=== PATIENT | male | born 1975 | race African-American/Black ===

== ENCOUNTER 2022-03-17 08:47 | Inpatient (IN) ==
[2022-03-17] MEDS ORDERED: SODIUM CHLORIDE 0.9% 1000ML 1,000 ML IV ONE (09:04)
--- NOTE | 2022-03-17 09:11 | Emergency Department Note ---
History of Present Illness General Chief complaint: Altered Mental Status Stated complaint: altered Time Seen by Provider: 03/17/22 08:59 Source: EMS History of Present Illness Provider complaint: Altered mental status Onset (ago): unknown 46-year-old male presents emergency department via EMS for altered mental status. Per EMS, the patient is an alcoholic. EMS reports that the family called EMS after the patient was drinking alcohol last night and then was found down on the ground. Allergies Allergy/AdvReac Type Severity Reaction Status Date / Time Penicillins Allergy Mild Hives Verified 03/17/22 09:54 Past Med/Surg History Medical History Alcohol abuse Elevated liver enzymes Hypertension Surgical History (Updated 03/17/22 @ 09:54 by Kathy Figueroa) No pertinent past surgical history Social History (System 03/17/22 @ 09:54 by Kathy Figueroa) Smoking Status: Unknown if ever smoked Feels Safe at Home: Yes Review of Systems Unobtainable due to cognitive status Physical Exam Vital Signs Vital Signs - 24 hr 03/17/22 08:57 03/17/22 09:08 03/17/22 09:01 Temperature 37.1 C Temperature Source Oral Pulse Rate 123 H 120 H Pulse Rate [Apical] Pulse Rate from SpO2 Sensor 120 H Pulse Rhythm Regular Pulse Strength Normal Respiratory Rate 16 13 Respiratory Effort / Characteristics Non-Labored Respiratory Depth Normal Respiratory Pattern Regular Blood Pressure 140/81 140/81 Blood Pressure [Left Arm] Blood Pressure Mean 100 100 Blood Pressure Mean [Left Arm] Blood Pressure Position Lying Pulse Oximetry 98 98 98 Oxygen Delivery Method Room Air Room Air Room Air Sepsis Recent Fever Within 48 Hours No Sepsis New/Unexplained Change in Mental Status Yes Sepsis Action Taken by Nursing Physician Notified 03/17/22 09:10 03/17/22 09:20 03/17/22 09:30 Temperature Temperature Source Pulse Rate 114 H 121 H 113 H Pulse Rate [Apical] Pulse Rate from SpO2 Sensor Pulse Rhythm Pulse Strength Respiratory Rate 21 12 12 Respiratory Effort / Characteristics Respiratory Depth Respiratory Pattern Blood Pressure Blood Pressure [Left Arm] Blood Pressure Mean Blood Pressure Mean [Left Arm] Blood Pressure Position Pulse Oximetry 98 97 97 Oxygen Delivery Method Room Air Room Air Room Air Sepsis Recent Fever Within 48 Hours Sepsis New/Unexplained Change in Mental Status Sepsis Action Taken by Nursing 03/17/22 09:40 03/17/22 09:50 03/17/22 09:55 Temperature Temperature Source Pulse Rate 109 H 108 H 122 H Pulse Rate [Apical] Pulse Rate from SpO2 Sensor Pulse Rhythm Pulse Strength Respiratory Rate 12 12 18 Respiratory Effort / Characteristics Respiratory Depth Respiratory Pattern Blood Pressure 137/73 Blood Pressure [Left Arm] Blood Pressure Mean 94 Blood Pressure Mean [Left Arm] Blood Pressure Position Pulse Oximetry 97 98 98 Oxygen Delivery Method Room Air Room Air Room Air Sepsis Recent Fever Within 48 Hours Sepsis New/Unexplained Change in Mental Status Sepsis Action Taken by Nursing 03/17/22 10:00 03/17/22 10:22 03/17/22 10:30 Temperature Temperature Source Pulse Rate 115 H 120 H 120 H Pulse Rate [Apical] Pulse Rate from SpO2 Sensor 119 H 119 H Pulse Rhythm Pulse Strength Respiratory Rate 14 22 22 Respiratory Effort / Characteristics Respiratory Depth Respiratory Pattern Blood Pressure 145/77 H 149/86 H 160/87 H Blood Pressure [Left Arm] Blood Pressure Mean 99 107 111 Blood Pressure Mean [Left Arm] Blood Pressure Position Pulse Oximetry 98 100 100 Oxygen Delivery Method Room Air Room Air Room Air Sepsis Recent Fever Within 48 Hours Sepsis New/Unexplained Change in Mental Status Sepsis Action Taken by Nursing 03/17/22 11:00 03/17/22 12:14 03/17/22 11:30 Temperature Temperature Source Pulse Rate 112 H 114 H Pulse Rate [Apical] 108 H Pulse Rate from SpO2 Sensor 114 H Pulse Rhythm Pulse Strength Respiratory Rate 13 18 15 Respiratory Effort / Characteristics Respiratory Depth Respiratory Pattern Blood Pressure 120/97 168/87 H Blood Pressure [Left Arm] 160/108 H Blood Pressure Mean 104 114 Blood Pressure Mean [Left Arm] 125 Blood Pressure Position Pulse Oximetry 100 99 98 Oxygen Delivery Method Room Air Room Air Sepsis Recent Fever Within 48 Hours Sepsis New/Unexplained Change in Mental Status Sepsis Action Taken by Nursing 03/17/22 12:00 03/17/22 12:02 03/17/22 12:30 Temperature Temperature Source Pulse Rate 125 H 123 H 112 H Pulse Rate [Apical] Pulse Rate from SpO2 Sensor Pulse Rhythm Pulse Strength Respiratory Rate 14 15 13 Respiratory Effort / Characteristics Respiratory Depth Respiratory Pattern Blood Pressure 160/108 H 129/69 Blood Pressure [Left Arm] Blood Pressure Mean 125 89 Blood Pressure Mean [Left Arm] Blood Pressure Position Pulse Oximetry 98 98 98 Oxygen Delivery Method Room Air Room Air Room Air Sepsis Recent Fever Within 48 Hours Sepsis New/Unexplained Change in Mental Status Sepsis Action Taken by Nursing Physical Exam HENT: Exam performed. - Head: Normocephalic and atraumatic. - Right Ear: External ear normal. No mastoid tenderness. - Left Ear: External ear normal. No mastoid tenderness. EYES: scleral icterus.Pupils 2 mm and reactive. CV: Normal rate, regular rhythm, normal heart sounds and intact distal pulses. Palpable radial pulses bue. PULM/CHEST: Effort normal and breath sounds normal. No respiratory distress. No stridor. He has no wheezes. He has no rales. ABD: The abdomen is soft.No fluid wave. Ecchymosis over the anterior abdominal wall. MUSC/SKEL: Pelvis stable.2+ pitting edema of the bilateral lower extremities. NEURO: GCS eye subscore is 4. GCS verbal subscore is 3. GCS motor subscore is 4. Cerebellar tests wnl. SKIN: Jaundiced.Ecchymosis over the left flank. Course Course 08: The patient was evaluated in room B7. A complete history and physical exam was performed Administered Medications Discontinued Medications Sodium Chloride (Nss 1000ml) 1,000 mls @ 999 mls/hr IV .[id number] ONE Stop: 03/17/22 10:04 Last Infusion: 03/17/22 12:11 Dose: 0 mls/hr Documented By: Admin: 03/17/22 09:13 Dose: 999 mls/hr Documented By: ARELI Pantoprazole Sodium 80 mg/ (Dextrose) 120 mls @ 400 mls/hr IV NOW ONE Stop: 03/17/22 12:31 Last Admin: 03/17/22 12:52 Dose: 400 mls/hr Documented By: RICKY Critical Care Time Critical Care Time: Yes Total Critical Care Time: 54 Medical Decision Making Laboratory Data Result diagrams: 03/17/22 09:45 03/17/22 09:45 Lab Results 03/17/22 03/17/22 03/17/22 Range/Units 09:24 09:24 09:45 WBC 13.31 H (4.8-10.8) K/ul RBC 1.75 L (4.63-6.08) M/uL Hgb 6.5 L* (14.0-18.0) g/dl POC Hgb (14.0-18.0) g/dl Hct 17.7 L* (40.1-51.0) % POC Hct (42-52) % MCV 101.1 H (80.0-100.0) fL MCH 37.1 H (25.0-34.0) pg MCHC 36.7 H (32.0-36.0) g/dL RDW Std Deviation 80.1 H (36.4-46.3) fL RDW Coeff of Berny 22.5 H (11.5-14.5) % Plt Count 78 L (130-400) K/uL MPV 10.5 (9.4-12.4) fL Immature Gran % (Auto) 1.2 % Neut % (Auto) 76.9 % Lymph % (Auto) 14.6 % Hendry % (Auto) 6.3 % Eos % (Auto) 0.4 % Baso % (Auto) 0.6 % Neut # (Auto) 10.24 H (1.4-6.5) K/uL Lymph # (Auto) 1.94 (1.2-3.4) K/uL [place] # (Auto) 0.84 H (0.24-0.82) K/uL Eos # (Auto) 0.05 (0-0.50) K/uL Baso # (Auto) 0.08 (0-0.2) K/uL Immature Gran # (Auto) 0.16 H (0.00-0.02) K/uL Absolute Nucleated RBC 0.03 H (0-0) K/uL Nucleated RBC % (auto) 0.2 % Pappenheimer Bodies Occasional Target Cells 2+ Jovel-Cramerton Bodies Occasional PT (9.0-12.0) Seconds INR (0.9-1.1) APTT (21.0-31.0) Seconds PTT Ratio VBG pH (7.36-7.41) VBG pCO2 (38-50) mmHg VBG pO2 mmHg VBG HCO3 mmol/L VBG O2 Saturation % VBG Base Excess mEq/L POC Sodium (135-144) mmol/L Sodium (136-145) mmol/L POC Potassium (3.3-5.0) mmol/L Potassium (3.5-5.1) mmol/L POC Chloride (101-112) mmol/L Chloride (98-107) mmol/L Carbon Dioxide (21-32) mmol/L POC Total CO2 (24-31) mmol/L Anion Gap (3-11) POC Anion Gap (16-25) mmol/L POC BUN (7-18) mg/dl BUN (6-23) mg/dl Creatinine (0.6-1.4) mg/dl POC Creatinine (0.6-1.3) mg/dl Est Cr Clr Drug Dosing ml/min Est GFR ( Amer) ml/min Est GFR (Non-Af Amer) ml/min BUN/Creatinine Ratio (10-20) Glucose (70-99(Fasting)) mg/dl POC Glucose (other) (70-99) mg/dl Calcium (8.5-10.1) mg/dl POC Ioniz Calcium Jad (1.12-1.32) mmol/l Magnesium (1.7-2.4) mg/dl Total Bilirubin (0.2-1.0) mg/dl Direct Bilirubin (0-0.2) mg/dl AST (13-39) U/L ALT (7-52) U/L Alkaline Phosphatase (34-104) U/L Ammonia (18-72) umol/L Total Creatine Kinase (30-223) U/L Troponin I High Sens (0-20) pg/ml Total Protein (6.0-8.3) gm/dl Albumin (3.4-5.0) gm/dl Lipase (11-82) U/L Urine Color [place] Urine Appearance Cloudy A (Clear) Urine pH 5.5 (4.5-7.5) Ur Specific [place] 1.020 (1.000-1.030) Urine Protein Negative (Negative) Urine Glucose (UA) Negative (Negative) Urine Ketones Trace H (Negative) Urine Blood Negative (Negative) Urine Nitrite Positive A (Negative) Urine Bilirubin 3+ H (Negative) Urine Urobilinogen Positive H (Negative) Ur Leukocyte Esterase Trace H (Negative) Urine WBC (Auto) 1-5 (0-5) /hpf Urine RBC (Auto) 0-4 (0-4) /hpf U Hyaline Cast (Auto) 5-10 H (0-5) /lpf U Epithel Cells (Auto) 10-20 H (0-5) /lpf Urine Bacteria (Auto) Negative (Negative) Urine Crystals Not Reportable Calcium Oxalate Crystal Present A (None Prsent) Granular Casts 1-5 H (0) /lpf Urine Mucus Present A (None Prsent) Urine Yeast Not Reportable Salicylates (3.0-30) mg/dl Urine Opiates Screen Neg (Neg) Ur Methadone, Qual Neg (Neg) Acetaminophen (10-30) ug/ml Urine Barbiturates Neg (Neg) Ur Phencyclidine (PCP) Neg (Neg) U Amphetamin/Meth Scrn Neg (Neg) MDMA (Ecstasy) Screen Neg (Neg) U Benzodiazepines Scrn Neg (Neg) Ur Cocaine Metabolite Neg (Neg) U Marijuana (THC) Screen Neg (Neg) Ethyl Alcohol mg/dL (<10.0) mg/dl SARS-CoV-2, RNA, NAAT (NEGATIVE) Blood Type Blood Type Recheck Antibody Screen Crossmatch 03/17/22 03/17/22 03/17/22 Range/Units 09:45 09:45 09:45 WBC (4.8-10.8) K/ul RBC (4.63-6.08) M/uL Hgb (14.0-18.0) g/dl POC Hgb (14.0-18.0) g/dl Hct (40.1-51.0) % POC Hct (42-52) % MCV (80.0-100.0) fL MCH (25.0-34.0) pg MCHC (32.0-36.0) g/dL RDW Std Deviation (36.4-46.3) fL RDW Coeff of Berny (11.5-14.5) % Plt Count (130-400) K/uL MPV (9.4-12.4) fL Immature Gran % (Auto) % Neut % (Auto) % Lymph % (Auto) % [place] % (Auto) % Eos % (Auto) % Baso % (Auto) % Neut # (Auto) (1.4-6.5) K/uL Lymph # (Auto) (1.2-3.4) K/uL [place] # (Auto) (0.24-0.82) K/uL Eos # (Auto) (0-0.50) K/uL Baso # (Auto) (0-0.2) K/uL Immature Gran # (Auto) (0.00-0.02) K/uL Absolute Nucleated RBC (0-0) K/uL Nucleated RBC % (auto) % Pappenheimer Bodies Target Cells Jovel-Cramerton Bodies PT 22.5 H (9.0-12.0) Seconds INR 2.2 H (0.9-1.1) APTT 50.1 H* (21.0-31.0) Seconds PTT Ratio 1.8 VBG pH (7.36-7.41) VBG pCO2 (38-50) mmHg VBG pO2 mmHg VBG HCO3 mmol/L VBG O2 Saturation % VBG Base Excess mEq/L POC Sodium (135-144) mmol/L Sodium 131 L (136-145) mmol/L POC Potassium (3.3-5.0) mmol/L Potassium 4.1 (3.5-5.1) mmol/L POC Chloride (101-112) mmol/L Chloride 97 L (98-107) mmol/L Carbon Dioxide 21 (21-32) mmol/L POC Total CO2 (24-31) mmol/L Anion Gap 13 H (3-11) POC Anion Gap (16-25) mmol/L POC BUN (7-18) mg/dl BUN 15 (6-23) mg/dl Creatinine 1.30 (0.6-1.4) mg/dl POC Creatinine (0.6-1.3) mg/dl Est Cr Clr Drug Dosing 104.6 ml/min Est GFR ( Amer) 76.4 ml/min Est GFR (Non-Af Amer) 65.9 ml/min BUN/Creatinine Ratio 11.5 (10-20) Glucose 96 (70-99(Fasting)) mg/dl POC Glucose (other) (70-99) mg/dl Calcium 7.7 L (8.5-10.1) mg/dl POC Ioniz Calcium Jad (1.12-1.32) mmol/l Magnesium (1.7-2.4) mg/dl Total Bilirubin 11.4 H (0.2-1.0) mg/dl Direct Bilirubin 5.9 H (0-0.2) mg/dl AST 309 H (13-39) U/L ALT 63 H (7-52) U/L Alkaline Phosphatase 141 H (34-104) U/L Ammonia 99.0 H (18-72) umol/L Total Creatine Kinase (30-223) U/L Troponin I High Sens (0-20) pg/ml Total Protein 8.9 H (6.0-8.3) gm/dl Albumin 2.0 L (3.4-5.0) gm/dl Lipase (11-82) U/L Urine Color Urine Appearance (Clear) Urine pH (4.5-7.5) Ur Specific [place] (1.000-1.030) Urine Protein (Negative) Urine Glucose (UA) (Negative) Urine Ketones (Negative) Urine Blood (Negative) Urine Nitrite (Negative) Urine Bilirubin (Negative) Urine Urobilinogen (Negative) Ur Leukocyte Esterase (Negative) Urine WBC (Auto) (0-5) /hpf Urine RBC (Auto) (0-4) /hpf U Hyaline Cast (Auto) (0-5) /lpf U Epithel Cells (Auto) (0-5) /lpf Urine Bacteria (Auto) (Negative) Urine Crystals Calcium Oxalate Crystal (None Prsent) Granular Casts (0) /lpf Urine Mucus (None Prsent) Urine Yeast Salicylates (3.0-30) mg/dl Urine Opiates Screen (Neg) Ur Methadone, Qual (Neg) Acetaminophen (10-30) ug/ml Urine Barbiturates (Neg) Ur Phencyclidine (PCP) (Neg) U Amphetamin/Meth Scrn (Neg) MDMA (Ecstasy) Screen (Neg) U Benzodiazepines Scrn (Neg) Ur Cocaine Metabolite (Neg) U Marijuana (THC) Screen (Neg) Ethyl Alcohol mg/dL (<10.0) mg/dl SARS-CoV-2, RNA, NAAT (NEGATIVE) Blood Type Blood Type Recheck Antibody Screen Crossmatch 03/17/22 03/17/22 03/17/22 Range/Units 09:45 09:45 09:45 WBC (4.8-10.8) K/ul RBC (4.63-6.08) M/uL Hgb (14.0-18.0) g/dl POC Hgb (14.0-18.0) g/dl Hct (40.1-51.0) % POC Hct (42-52) % MCV (80.0-100.0) fL MCH (25.0-34.0) pg MCHC (32.0-36.0) g/dL RDW Std Deviation (36.4-46.3) fL RDW Coeff of Berny (11.5-14.5) % Plt Count (130-400) K/uL MPV (9.4-12.4) fL Immature Gran % (Auto) % Neut % (Auto) % Lymph % (Auto) % [place] % (Auto) % Eos % (Auto) % Baso % (Auto) % Neut # (Auto) (1.4-6.5) K/uL Lymph # (Auto) (1.2-3.4) K/uL [place] # (Auto) (0.24-0.82) K/uL Eos # (Auto) (0-0.50) K/uL Baso # (Auto) (0-0.2) K/uL Immature Gran # (Auto) (0.00-0.02) K/uL Absolute Nucleated RBC (0-0) K/uL Nucleated RBC % (auto) % Pappenheimer Bodies Target Cells Jovel-Cramerton Bodies PT (9.0-12.0) Seconds INR (0.9-1.1) APTT (21.0-31.0) Seconds PTT Ratio VBG pH (7.36-7.41) VBG pCO2 (38-50) mmHg VBG pO2 mmHg VBG HCO3 mmol/L VBG O2 Saturation % VBG Base Excess mEq/L POC Sodium (135-144) mmol/L Sodium (136-145) mmol/L POC Potassium (3.3-5.0) mmol/L Potassium (3.5-5.1) mmol/L POC Chloride (101-112) mmol/L Chloride (98-107) mmol/L Carbon Dioxide (21-32) mmol/L POC Total CO2 (24-31) mmol/L Anion Gap (3-11) POC Anion Gap (16-25) mmol/L POC BUN (7-18) mg/dl BUN (6-23) mg/dl Creatinine (0.6-1.4) mg/dl POC Creatinine (0.6-1.3) mg/dl Est Cr Clr Drug Dosing ml/min Est GFR ( Amer) ml/min Est GFR (Non-Af Amer) ml/min BUN/Creatinine Ratio (10-20) Glucose (70-99(Fasting)) mg/dl POC Glucose (other) (70-99) mg/dl Calcium (8.5-10.1) mg/dl POC Ioniz Calcium Jad (1.12-1.32) mmol/l Magnesium 1.8 (1.7-2.4) mg/dl Total Bilirubin (0.2-1.0) mg/dl Direct Bilirubin (0-0.2) mg/dl AST (13-39) U/L ALT (7-52) U/L Alkaline Phosphatase (34-104) U/L Ammonia (18-72) umol/L Total Creatine Kinase 289 H (30-223) U/L Troponin I High Sens 29.8 H (0-20) pg/ml Total Protein (6.0-8.3) gm/dl Albumin (3.4-5.0) gm/dl Lipase 118 H (11-82) U/L Urine Color Urine Appearance (Clear) Urine pH (4.5-7.5) Ur Specific [place] (1.000-1.030) Urine Protein (Negative) Urine Glucose (UA) (Negative) Urine Ketones (Negative) Urine Blood (Negative) Urine Nitrite (Negative) Urine Bilirubin (Negative) Urine Urobilinogen (Negative) Ur Leukocyte Esterase (Negative) Urine WBC (Auto) (0-5) /hpf Urine RBC (Auto) (0-4) /hpf U Hyaline Cast (Auto) (0-5) /lpf U Epithel Cells (Auto) (0-5) /lpf Urine Bacteria (Auto) (Negative) Urine Crystals Calcium Oxalate Crystal (None Prsent) Granular Casts (0) /lpf Urine Mucus (None Prsent) Urine Yeast Salicylates < 3.0 L (3.0-30) mg/dl Urine Opiates Screen (Neg) Ur Methadone, Qual (Neg) Acetaminophen 11 (10-30) ug/ml Urine Barbiturates (Neg) Ur Phencyclidine (PCP) (Neg) U Amphetamin/Meth Scrn (Neg) MDMA (Ecstasy) Screen (Neg) U Benzodiazepines Scrn (Neg) Ur Cocaine Metabolite (Neg) U Marijuana (THC) Screen (Neg) Ethyl Alcohol mg/dL 190.9 H (<10.0) mg/dl SARS-CoV-2, RNA, NAAT (NEGATIVE) Blood Type Blood Type Recheck Antibody Screen Crossmatch 03/17/22 03/17/22 03/17/22 Range/Units 10:00 10:02 10:24 WBC (4.8-10.8) K/ul RBC (4.63-6.08) M/uL Hgb (14.0-18.0) g/dl POC Hgb 7.5 L (14.0-18.0) g/dl Hct (40.1-51.0) % POC Hct 22 L (42-52) % MCV (80.0-100.0) fL MCH (25.0-34.0) pg MCHC (32.0-36.0) g/dL RDW Std Deviation (36.4-46.3) fL RDW Coeff of Berny (11.5-14.5) % Plt Count (130-400) K/uL MPV (9.4-12.4) fL Immature Gran % (Auto) % Neut % (Auto) % Lymph % (Auto) % [place] % (Auto) % Eos % (Auto) % Baso % (Auto) % Neut # (Auto) (1.4-6.5) K/uL Lymph # (Auto) (1.2-3.4) K/uL [place] # (Auto) (0.24-0.82) K/uL Eos # (Auto) (0-0.50) K/uL Baso # (Auto) (0-0.2) K/uL Immature Gran # (Auto) (0.00-0.02) K/uL Absolute Nucleated RBC (0-0) K/uL Nucleated RBC % (auto) % Pappenheimer Bodies Target Cells Jovel-Cramerton Bodies PT (9.0-12.0) Seconds INR (0.9-1.1) APTT (21.0-31.0) Seconds PTT Ratio VBG pH 7.44 H (7.36-7.41) VBG pCO2 31 L (38-50) mmHg VBG pO2 58 mmHg VBG HCO3 21 mmol/L VBG O2 Saturation 91.3 % VBG Base Excess -2.1 mEq/L POC Sodium 136 (135-144) mmol/L Sodium (136-145) mmol/L POC Potassium 4.2 (3.3-5.0) mmol/L Potassium (3.5-5.1) mmol/L POC Chloride 98 L (101-112) mmol/L Chloride (98-107) mmol/L Carbon Dioxide (21-32) mmol/L POC Total CO2 22 L (24-31) mmol/L Anion Gap (3-11) POC Anion Gap 21.0 (16-25) mmol/L POC BUN 15 (7-18) mg/dl BUN (6-23) mg/dl Creatinine (0.6-1.4) mg/dl POC Creatinine 1.7 H (0.6-1.3) mg/dl Est Cr Clr Drug Dosing ml/min Est GFR ( Amer) ml/min Est GFR (Non-Af Amer) ml/min BUN/Creatinine Ratio (10-20) Glucose (70-99(Fasting)) mg/dl POC Glucose (other) 104 H (70-99) mg/dl Calcium (8.5-10.1) mg/dl POC Ioniz Calcium Jad 0.97 L (1.12-1.32) mmol/l Magnesium (1.7-2.4) mg/dl Total Bilirubin (0.2-1.0) mg/dl Direct Bilirubin (0-0.2) mg/dl AST (13-39) U/L ALT (7-52) U/L Alkaline Phosphatase (34-104) U/L Ammonia (18-72) umol/L Total Creatine Kinase (30-223) U/L Troponin I High Sens (0-20) pg/ml Total Protein (6.0-8.3) gm/dl Albumin (3.4-5.0) gm/dl Lipase (11-82) U/L Urine Color Urine Appearance (Clear) Urine pH (4.5-7.5) Ur Specific [place] (1.000-1.030) Urine Protein (Negative) Urine Glucose (UA) (Negative) Urine Ketones (Negative) Urine Blood (Negative) Urine Nitrite (Negative) Urine Bilirubin (Negative) Urine Urobilinogen (Negative) Ur Leukocyte Esterase (Negative) Urine WBC (Auto) (0-5) /hpf Urine RBC (Auto) (0-4) /hpf U Hyaline Cast (Auto) (0-5) /lpf U Epithel Cells (Auto) (0-5) /lpf Urine Bacteria (Auto) (Negative) Urine Crystals Calcium Oxalate Crystal (None Prsent) Granular Casts (0) /lpf Urine Mucus (None Prsent) Urine Yeast Salicylates (3.0-30) mg/dl Urine Opiates Screen (Neg) Ur Methadone, Qual (Neg) Acetaminophen (10-30) ug/ml Urine Barbiturates (Neg) Ur Phencyclidine (PCP) (Neg) U Amphetamin/Meth Scrn (Neg) MDMA (Ecstasy) Screen (Neg) U Benzodiazepines Scrn (Neg) Ur Cocaine Metabolite (Neg) U Marijuana (THC) Screen (Neg) Ethyl Alcohol mg/dL (<10.0) mg/dl SARS-CoV-2, RNA, NAAT (NEGATIVE) Blood Type B Positive Blood Type Recheck Antibody Screen NEGATIVE Crossmatch See Detail 03/17/22 03/17/22 Range/Units 11:57 11:58 WBC (4.8-10.8) K/ul RBC (4.63-6.08) M/uL Hgb (14.0-18.0) g/dl POC Hgb (14.0-18.0) g/dl Hct (40.1-51.0) % POC Hct (42-52) % MCV (80.0-100.0) fL MCH (25.0-34.0) pg MCHC (32.0-36.0) g/dL RDW Std Deviation (36.4-46.3) fL RDW Coeff of Berny (11.5-14.5) % Plt Count (130-400) K/uL MPV (9.4-12.4) fL Immature Gran % (Auto) % Neut % (Auto) % Lymph % (Auto) % [place] % (Auto) % Eos % (Auto) % Baso % (Auto) % Neut # (Auto) (1.4-6.5) K/uL Lymph # (Auto) (1.2-3.4) K/uL [place] # (Auto) (0.24-0.82) K/uL Eos # (Auto) (0-0.50) K/uL Baso # (Auto) (0-0.2) K/uL Immature Gran # (Auto) (0.00-0.02) K/uL Absolute Nucleated RBC (0-0) K/uL Nucleated RBC % (auto) % Pappenheimer Bodies Target Cells Jovel-Cramerton Bodies PT (9.0-12.0) Seconds INR (0.9-1.1) APTT (21.0-31.0) Seconds PTT Ratio VBG pH (7.36-7.41) VBG pCO2 (38-50) mmHg VBG pO2 mmHg VBG HCO3 mmol/L VBG O2 Saturation % VBG Base Excess mEq/L POC Sodium (135-144) mmol/L Sodium (136-145) mmol/L POC Potassium (3.3-5.0) mmol/L Potassium (3.5-5.1) mmol/L POC Chloride (101-112) mmol/L Chloride (98-107) mmol/L Carbon Dioxide (21-32) mmol/L POC Total CO2 (24-31) mmol/L Anion Gap (3-11) POC Anion Gap (16-25) mmol/L POC BUN (7-18) mg/dl BUN (6-23) mg/dl Creatinine (0.6-1.4) mg/dl POC Creatinine (0.6-1.3) mg/dl Est Cr Clr Drug Dosing ml/min Est GFR ( Amer) ml/min Est GFR (Non-Af Amer) ml/min BUN/Creatinine Ratio (10-20) Glucose (70-99(Fasting)) mg/dl POC Glucose (other) (70-99) mg/dl Calcium (8.5-10.1) mg/dl POC Ioniz Calcium Jad (1.12-1.32) mmol/l Magnesium (1.7-2.4) mg/dl Total Bilirubin (0.2-1.0) mg/dl Direct Bilirubin (0-0.2) mg/dl AST (13-39) U/L ALT (7-52) U/L Alkaline Phosphatase (34-104) U/L Ammonia (18-72) umol/L Total Creatine Kinase (30-223) U/L Troponin I High Sens (0-20) pg/ml Total Protein (6.0-8.3) gm/dl Albumin (3.4-5.0) gm/dl Lipase (11-82) U/L Urine Color Urine Appearance (Clear) Urine pH (4.5-7.5) Ur Specific [place] (1.000-1.030) Urine Protein (Negative) Urine Glucose (UA) (Negative) Urine Ketones (Negative) Urine Blood (Negative) Urine Nitrite (Negative) Urine Bilirubin (Negative) Urine Urobilinogen (Negative) Ur Leukocyte Esterase (Negative) Urine WBC (Auto) (0-5) /hpf Urine RBC (Auto) (0-4) /hpf U Hyaline Cast (Auto) (0-5) /lpf U Epithel Cells (Auto) (0-5) /lpf Urine Bacteria (Auto) (Negative) Urine Crystals Calcium Oxalate Crystal (None Prsent) Granular Casts (0) /lpf Urine Mucus (None Prsent) Urine Yeast Salicylates (3.0-30) mg/dl Urine Opiates Screen (Neg) Ur Methadone, Qual (Neg) Acetaminophen (10-30) ug/ml Urine Barbiturates (Neg) Ur Phencyclidine (PCP) (Neg) U Amphetamin/Meth Scrn (Neg) MDMA (Ecstasy) Screen (Neg) U Benzodiazepines Scrn (Neg) Ur Cocaine Metabolite (Neg) U Marijuana (THC) Screen (Neg) Ethyl Alcohol mg/dL (<10.0) mg/dl SARS-CoV-2, RNA, NAAT NEGATIVE (NEGATIVE) Blood Type Blood Type Recheck B Positive Antibody Screen Crossmatch Imaging Data Radiologist's Impression: Cervical Spine CT 03/17/22 09:06 CT cervical spine wo con CLINICAL HISTORY: found down bathroom alcoholic ams TECHNIQUE: Multidetector row helical CT of the cervical spine was performed without administration of intravenous contrast. Coronal and sagittal reformations were obtained. Automated dose lowering techniques and/or adjustment according to patient size were utilized for this exam. Comparison: None available at the time of this dictation. FINDINGS: No acute fractures or subluxations are identified. Degenerative changes are seen in the visualized spine. The alignment is normal. Soft tissues are unremarkable. IMPRESSION: Degenerative changes without evidence of acute bony injury. ACT 112: Negative or not required by law. Electronically signed by: Jacques Bailey M.D. 03/17/2022 10:[address] 03/17/22 09:06 CT head/brain wo con CLINICAL HISTORY: 46 years-old Male with found down bathroom alcoholic ams. Acute head injury TECHNIQUE: Multiple axial CT images of the head were obtained without contrast. A dose lowering technique was utilized adhering to the principles of ALARA. COMPARISON: CT cervical spine of same day FINDINGS: No acute intracranial hemorrhage, midline shift, intracranial mass, hydrocephalus, territorial ischemia or abnormal extra-axial collection. The calvarium is intact. Polypoid mucosal thickening of the left maxillary sinus. The mastoid air cells are clear. Small left parietal scalp contusion. IMPRESSION: 1. No acute intracranial abnormality or calvarial fracture. 2. Small left parietal scalp contusion. ACT 112: Negative or not required by law. The above report was generated using voice recognition software. It may contain grammatical, syntax or spelling errors. Electronically signed by: Surinder Escobar M.D. 03/17/2022 10:32 AM Abdomen/Pelvis CT 03/17/22 10:03 CT abd pelvis wo con CLINICAL HISTORY: found down alcoholic TECHNIQUE: Helical axial images of the abdomen and pelvis were obtained. Automa willie dose lowering techniques and/or adjustment according to patient size were utilized for this exam. This exam was performed without intravenous contrast. CT DOSE: 3202.34 mGy.cm COMPARISON: None available at the time of this dictation. FINDINGS: Lower chest: No acute abnormality Liver: Hepatic steatosis is noted. Gallbladder and biliary tree: Patient is status post cholecystectomy. No intra- or extrahepatic biliary ductal dilation. Pancreas: Pancreas is diminutive for age. No definite peripancreatic stranding is seen against a background of ascites. Spleen: Unremarkable. Adrenals: Unremarkable. Kidneys and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
[2022-03-17 09:39] LABS: Appearance Urine Cloudy (Clear); Bacteria Urine Automated Negative (Negative); Blood Urine Negative (Negative); Color Urine Orange; Glucose Urine UA Negative (Negative); Ketones Urine Trace (Negative); Leukocyte Esterase Urine Trace (Negative); Nitrite Urine Positive (Negative); Protein Urine Negative (Negative); Urobilinogen Urine Positive (Negative); pH Urine 5.5 (4.5-7.5)
[2022-03-17 09:49] LABS: Bilirubin Urine 3+ (Negative)
[2022-03-17 10:09] LABS: Amphetamines+Metham, Urine Neg (Neg); Barbiturates, Urine Neg (Neg); Benzodiazepine, Urine Neg (Neg); Cocaine, Urine Neg (Neg); MDMA (Ecstacy), Urine Neg (Neg); Methadone, Urine Neg (Neg); Opiate, Urine Neg (Neg); Phencyclidine, Urine Neg (Neg)
[2022-03-17 10:18] LABS: RBC Urine Automated 0-4 /hpf (0-4)
[2022-03-17 10:19] LABS: Calcium Oxalate Crystals Urine Present (None Prsent); Mucus Urine Present (None Prsent)
[2022-03-17 10:20] LABS: Hematocrit (blood only) 17.7 % (40.1-51.0); Hemoglobin 6.5 g/dl (14.0-18.0)
[2022-03-17 10:28] LABS: Base Excess VBG -2.1 mEq/L; HCO3 VBG 21 mmol/L; Oxygen Saturation VBG 91.3 %; PCO2 VBG 31 mmHg (38-50); PO2 VBG 58 mmHg; pH VBG 7.44 (7.36-7.41)
--- NOTE | 2022-03-17 10:29 | CT Scan Report ---
CT cervical spine wo con CLINICAL HISTORY: found down bathroom alcoholic ams TECHNIQUE: Multidetector row helical CT of the cervical spine was performed without administration of intravenous contrast. Coronal and sagittal reformations were obtained. Automated dose lowering techn iques and/or adjustment according to patient size were utilized for this exam. Comparison: None available at the time of this dictation. FINDINGS: No acute fractures or subluxations are identified. Degenerative changes are seen in the visualized sp ine. The alignment is normal. Soft tissues are unremarkable. IMPRESSION: Degenerative changes without evidence of acute bony injury. ACT 112: Negative or not required by law. Electronically signed by: Jacques Bailey M.D. 03/17/2022 10:27 AM
--- NOTE | 2022-03-17 10:34 | CT Scan Report ---
CT head/brain wo con CLINICAL HISTORY: 46 years-old Male with found down bathroom alcoholic ams. Acute head injury TECHNIQUE: Multiple axial CT images of the head were obtained without contrast. A dose lowering tech nique was utilized adhering to the principles of ALARA. COMPARISON: CT cervical spine of same day FINDINGS: No acute intracranial hemorrhage, midline shift, intracranial mass, hydrocephalus, territorial ischem ia or abnormal extra-axial collection. The calvarium is intact. Polypoid mucosal thickening of the left maxillary sinus. The mastoid air ce lls are clear. Small left parietal scalp contusion. IMPRESSION: 1. No acute intracranial abnormality or calvarial fracture. 2. Small left parietal scalp contusion. ACT 112: Negative or not required by law. The above report was generated using voice recognition software. It may contain grammatical, syntax o r spelling errors. Electronically signed by: Surinder Escobar M.D. 03/17/2022 10:32 AM
--- NOTE | 2022-03-17 10:35 | CT Scan Report ---
CT abd pelvis wo con CLINICAL HISTORY: found down alcoholic TECHNIQUE: Helical axial images of the abdomen and pelvis were obtained. Automated dose lowering tech niques and/or adjustment according to patient size were utilized for this exam. This exam was perfor med without intravenous contrast. CT DOSE: 3202.34 mGy.cm COMPARISON: None available at the time of this dictation. FINDINGS: Lower chest: No acute abnormality Liver: Hepatic steatosis is noted. Gallbladder and biliary tree: Patient is status post cholecystectomy. No intra- or extrahepatic bilia ry ductal dilation. Pancreas: Pancreas is diminutive for age. No definite peripancreatic stranding is seen against a back ground of ascites. Spleen: Unremarkable. Adrenals: Unremarkable. Kidneys and ureters: Unremarkable. Bladder: Limited evaluation due to underdistention. Reproductive organs: Unremarkable. Bowel: Prominent stool burden is noted in the rectum. The appendix is unremarkable. Postsurgical cooney ges of gastric bypass. Lymph nodes Retroperitoneal: Unremarkable. Pelvic: Unremarkable. Mesenteric: Unremarkable. Peritoneum: Mild ascites is seen. Vessels: Unremarkable. Abdominal wall: Mild body wall edema is seen. Bones: Degenerative changes in the visualized spine. IMPRESSION: Hepatic steatosis and possible steatohepatitis in this patient with history of alcoholism. There is m ild ascites. This is new from prior exam and may represent worsening liver disease. Additional findin gs as above. ACT 112: Negative or not required by law. Electronically signed by: Jacques Bailey M.D. 03/17/2022 10:33 AM
[2022-03-17 10:36] LABS: Basophils # (auto) 0.08 K/uL (0-0.2); Basophils % (auto) 0.6 %; Eosinophils # (auto) 0.05 K/uL (0-0.50); Eosinophils % (auto) 0.4 %; Howell-Jolly Bodies Occasional; Immature Granulocytes # (auto) 0.16 K/uL (0.00-0.02); Immature Granulocytes % (auto) 1.2 %; Lymphocytes # (auto) 1.94 K/uL (1.2-3.4); Lymphocytes % (auto) 14.6 %; Mean Corpuscular Hemoglobin 37.1 pg (25.0-34.0); Mean Corpuscular Hgb Conc 36.7 g/dL (32.0-36.0); Mean Corpuscular Volume 101.1 fL (80.0-100.0); Mean Platelet Volume 10.5 fL (9.4-12.4); Monocytes # (auto) 0.84 K/uL (0.24-0.82); Monocytes % (auto) 6.3 %; Neutrophils # (auto) 10.24 K/uL (1.4-6.5); Neutrophils % (auto) 76.9 %; Nucleated RBC # (auto) 0.03 K/uL (0-0); Nucleated RBC % (auto) 0.2 %; Pappenheimer Bodies Occasional; Platelet Count 78 K/uL (130-400); RDW Coefficient of Variation 22.5 % (11.5-14.5); RDW Standard Deviation 80.1 fL (36.4-46.3); Red Blood Count 1.75 M/uL (4.63-6.08); Target Cells 2+; Troponin I High Sensitivity 29.8 pg/ml (0-20); White Blood Count 13.31 K/ul (4.8-10.8)
[2022-03-17 10:50] LABS: iSTAT Creatinine 1.7 mg/dl (0.6-1.3); iSTAT Hemoglobin 7.5 g/dl (14.0-18.0); iSTAT Ionized Calcium 0.97 mmol/l (1.12-1.32); iSTAT Potassium 4.2 mmol/L (3.3-5.0)
[2022-03-17 10:50] LABS: Acetaminophen 11 ug/ml (10-30); Salicylate < 3.0 mg/dl (3.0-30)
[2022-03-17 10:52] LABS: BUN Creatinine Ratio 11.5 (10-20); Bilirubin Direct 5.9 mg/dl (0-0.2); Bilirubin,Total 11.4 mg/dl (0.2-1.0); Calcium 7.7 mg/dl (8.5-10.1); Creatinine Clr Calc Pharmacy 104.6 ml/min; Est GFR (African American) 76.4 ml/min; Est GFR (Non-African American) 65.9 ml/min; Potassium 4.1 mmol/L (3.5-5.1); Total Protein 8.9 gm/dl (6.0-8.3)
[2022-03-17 11:00] LABS: Magnesium 1.8 mg/dl (1.7-2.4)
[2022-03-17 11:18] LABS: INR 2.2 (0.9-1.1); Partial Thromboplastin Ratio 1.8; Prothrombin Time 22.5 Seconds (9.0-12.0)
[2022-03-17 11:24] LABS: Partial Thromboplastin Time 50.1 Seconds (21.0-31.0)
[2022-03-17] MEDS ORDERED: SODIUM CHLORIDE 0.9% 250 ML IV PRN ×3 (11:39→17:48)
[2022-03-17] MEDS ORDERED: PANTOPRAZOLE BOLUS/DRIP 1 EACH IV STA (12:14)
[2022-03-17] MEDS ORDERED: PANTOprazole 80 MG in DEXTROSE 5% 100 ML IV ONE (12:14)
[2022-03-17] MEDS ORDERED: PHYTONADIONE 5 MG in DEXTROSE 5% 50 ML IV ONE (12:19)
[2022-03-17] MEDS ORDERED: STAT IV STA ×2 (13:37→15:00)
[2022-03-17] MEDS ORDERED: OCTREOTIDE ACETATE 500 MCG in DEXTROSE 5% 100 ML IV SCH (13:45)
[2022-03-17] MEDS ORDERED: cefTRIAXone SODIUM 1,000 MG in DEXTROSE 5% 50 ML IV SCH (13:45)
[2022-03-17] MEDS ORDERED: LORazepam 2 MG/1 ML VIAL IV STA (13:59)
--- NOTE | 2022-03-17 14:08 | History & Physical Report ---
Date of Service March 17, 2022 Assessment & Plan (1) Acute liver failure: Plan: -Due to heavy and prolonged alcohol abuse, patient still currently drinking daily -MELD score currently 30, not a candidate for liver transplant as he is still drinking -GI consult placed, they will follow -Will start octreotide and Ceftriaxone as unsure if he has a history of esophageal varices -Will start 30 mg IV methylprednisolone daily for his severe status -Patient being admitted to ICU for closer monitoring with his multiple issues at this time (2) Alcoholic hepatitis: Plan: -See above (3) Acute blood loss anemia (ABLA): Plan: -Likely due to a multiple etiologies including acute liver failure and lack of coagulation factors, possible GI bleed, and large hematoma on the left abdomen and left flank -Currently hemodynamically stable but tachycardic -Hgb currently 6.7, last Hgb was 13 as og 02/02/22 -Blood consent and 1 unit PRBCs in the ED -Continue to monitor cbc q6h and transfuse as needed -Started on IV protonix in the ED, continue for now -GI consult placed -Keep NPO for now (4) GI bleed: Plan: -See above (5) Hepatic encephalopathy: Plan: -Ammonia currently at 99 -Patient is tremulous but alert -Will hold lactulose for now until he is seen by GI with his possible GI bleed (6) Alcoholic intoxication: Plan: -Ethanol level currently 190 -Patient appears to be starting to withdrawal -Started on alcohol withdrawal severity scale and give ativan as needed -Ordering banana bag now (7) TANVIR (acute kidney injury): Plan: -Cr currently 1.7, was .77 as og 02/02/22 -Likely multifactorial due to hepatorenal syndrome, alcohol use, and possible rhabdomyolysis for recent fall -Given 1L NSS in the ED, will hold additional IV fluids for now -Monitor AM renal function and CK and consult nephrology as needed (8) Hypocalcemia: Plan: -Ionized calcium at 0.97 -Will give 1g IV calcium gluconate now as he is NPO status -Monitor AM BMP (9) Hyponatremia: Plan: -Noted to be 131 in ED -Likely due to multiple factors including liver failure, alcohol abuse, and poor oral intake -Monitor am BMP for now (10) Supratherapeutic INR: Plan: -Likely due to his liver failure -Currently 2.2 -Given 5mg IV vitamin K in ED -Continue to monitor am PT/INR (11) Thrombocytopenia: Plan: -Monitor platelet and transfuse as need (12) Hypertension: Plan: -Hold [employer] antihypertensives as he is high risk for hypotension (13) Fall: Plan: -No acute musculoskeletal injuries noted on exam -If concern for continued bleeding at the hematoma site would recommend STAT CT with contrast History of Present Illness Chief Complaint: AMS and recent fall Primary Care Provider: Rigo OsborneDO Henderson is a 46 year old male with a PMH significant for current alcohol abuse, HTN, previous gastric bypass surgery in 2015, previous bowel resection in 2019 who presented to the ED with his fiance for a chief complaint of AMS and recent fall. The majority of the history was obtained from the patient's fiance at bedside. She states that the patient has been having progressive lower extremity swelling over the last month. The patient drinks approximately 1/2 handle of vodka daily. She has noticed that his eyes have been "yellow" for about the past month. His fiance states that the patient fell on 03/13/22 but is unsure how long he was down for. After, he developed a large left abdominal and left flank hematoma. The patient was last seen in the ED on 02/02/22 for pancreatitis, transaminitis, and alcohol withdrawal but he left AMA instead of staying for treatment. At the time of the exam the patient was resting comfortably in bed in no acute distress. He denies any complaints at the time of the exam. His fiance currently lives in [place] and the patient currently lives in [place] which makes an accurate history difficult to obtained. She states that the patient was complaining of abdominal pain but has not experienced hematemesis, bloody BMs, or melena. In the ED the patient was noted to be encephalopathic, anemic with a Hgb of 6.7, down from 13.5 as of 02/02/22. The patient was found to be thrombocytopenic (78 K), supratherapeutic INR at 2.2, Cr of 1.3, up from 0.77 as of 02/02/22, hypocalcemic with an Ionized calcium of 0.97. The patient's liver enzymes were all liver enzymes were elevated with an elevated ammonia of 99 and an alcohol level of 190. CT of the head and C-spine were negative for acute injuries and CT of the abdom/pelvis WO contrast revealed "Hepatic steatosis and possible steatohepatitis in this patient with history of alcoholism. There is mild ascites." In the ED he was given 1 unit PRBCs, IV protonix , 1L NSS bolus, and 5 mg IV vitamin K. The emergency department spoke with GI who recommended medicine admission and they will follow while admitted. A long discussion was had with the patient and his fiance. It was explained that the patient is in acute liver failure with a very poor prognosis over the next 3 months. It was explained that he is not a liver transplant candidate because of his current alcohol use. The patient's fiance expressed understanding. We explained that the goal for now is to stabilize him and see what GI says moving forward. Allergies Allergy/AdvReac Type Severity Reaction Status Date / Time Penicillins Allergy Mild Hives Verified 03/17/22 09:54 Home Medications Medication Instructions Recorded Confirmed Type amlodipine 5 mg tablet 5 mg PO DAILY 03/17/22 03/17/22 History cholecalciferol (vitamin D3) 50 0 mcg PO DAILY 03/17/22 03/17/22 History mcg (2,000 unit) capsule (Vitamin D3) cyanocobalamin (vitamin B-12) 0 mcg PO DAILY 03/17/22 03/17/22 History 1,000 mcg tablet (Vitamin B-12) hydrochlorothiazide 12.5 mg tablet 12.5 mg PO DAILY 03/17/22 03/17/22 History Past Med/Surg History Medical History (Updated 03/17/22 @ 16:40 by Yobani Mondragon MD) Alcohol abuse Elevated liver enzymes Hypertension No pertinent family history No pertinent past medical history Surgical History No pertinent past surgical history Social History Smoking Status: Unknown if ever smoked Feels Safe at Home: Yes Review of Systems Constitutional: + fatigue, + malaise, + weakness and + weight gain Eyes: no diplopia Positive for sclerual icterus Ear, Nose, Mouth, Throat: no ear pain, no tinnitus, no dizziness, no epistaxis and no dysphagia Respiratory: no cough, no chest congestion and no dyspnea Cardiovascular: no chest pain and no palpitations Gastrointestinal: no abdominal pain, no nausea, no vomiting, no coffee ground emesis, no hematemesis and no blood in stools Musculoskeletal: no back pain, no deformity and no limited range of motion Integumentary: no rash Positive for bruising of the left abdomen and flank Neurologic: + falls, + generalized weakness and + confusion Psychiatric: + irritability and + confusion Endocrine: + fatigue Hematologic / Lymphatic: + easy bruising Allergy / Immunological: no rash Physical Exam Constitutional: + ill appearing, + intoxicated appearing, + morbidly obese, cooperative, comfortable and + malnourished; + not well nourished, no acute distress and not in distress Eyes: PERRL; sclerae not anicteric ENMT: external ear and nose normal, oropharynx normal Neck: trachea midline, no thyromegaly Respiratory: normal respiratory effort, lungs clear to auscultation normal respiratory effort; no respiratory distress Cardiovascular: Tachycardic, regular rhythm, no murmurs noted Gastrointestinal (Abdomen): Inspection/Auscultation: + abdomen distended Percussion/Palpation: abdomen soft, + hepatosplenomegaly and + ascites Bruising noted on the left lower abdomen and left flank Musculoskeletal: no cyanosis or clubbing, extremities motor strength 5/5 Skin: Bruising of the left lower abdomen and flank Neurologic: CN's II-XI intact bilaterally and + confused Motor/Sensory: + tremor and + asterixis Psychiatric: Orientation: alert, oriented to person and oriented to time Results & Data Results & Data ([facility]) Vital Signs (Past 12 Hours) Vital Signs Temp Pulse Pulse Resp BP BP Pulse Ox 03/17/22 13:27 36.9 C 133 H 16 160/88 H 98 03/17/22 12:30 112 H 13 129/69 98 03/17/22 12:02 123 H 15 160/108 H 98 03/17/22 12:00 125 H 14 98 03/17/22 11:30 114 H 15 168/87 H 98 03/17/22 12:14 108 H 18 160/108 H 99 03/17/22 11:00 112 H 13 120/97 100 03/17/22 10:30 120 H 22 160/87 H 100 03/17/22 10:22 120 H 22 149/86 H 100 03/17/22 10:00 115 H 14 145/77 H 98 03/17/22 09:55 122 H 18 137/73 98 03/17/22 09:50 108 H 12 98 03/17/22 09:40 109 H 12 97 03/17/22 09:30 113 H 12 97 03/17/22 09:20 121 H 12 97 03/17/22 09:10 114 H 21 98 03/17/22 09:01 120 H 13 140/81 98 03/17/22 09:08 98 03/17/22 08:57 37.1 C 123 H 16 140/81 98 O2 Del Method 03/17/22 13:27 03/17/22 12:30 Room Air 03/17/22 12:02 Room Air 03/17/22 12:00 Room Air 03/17/22 11:30 Room Air 03/17/22 12:14 03/17/22 11:00 Room Air 03/17/22 10:30 Room Air 03/17/22 10:22 Room Air 03/17/22 10:00 Room Air 03/17/22 09:55 Room Air 03/17/22 09:50 Room Air 03/17/22 09:40 Room Air 03/17/22 09:30 Room Air 03/17/22 09:20 Room Air 03/17/22 09:10 Room Air 03/17/22 09:01 Room Air 03/17/22 09:08 Room Air 03/17/22 08:57 Room Air Abnormal lab results 03/17/22 03/17/22 03/17/22 Range/Units 09:24 09:45 09:45 WBC 13.31 H (4.8-10.8) K/ul RBC 1.75 L (4.63-6.08) M/uL Hgb 6.5 L* (14.0-18.0) g/dl POC Hgb (14.0-18.0) g/dl Hct 17.7 L* (40.1-51.0) % POC Hct (42-52) % MCV 101.1 H (80.0-100.0) fL MCH 37.1 H (25.0-34.0) pg MCHC 36.7 H (32.0-36.0) g/dL RDW Std Deviation 80.1 H (36.4-46.3) fL RDW Coeff of Berny 22.5 H (11.5-14.5) % Plt Count 78 L (130-400) K/uL Neut # (Auto) 10.24 H (1.4-6.5) K/uL Wilbarger # (Auto) 0.84 H (0.24-0.82) K/uL Immature Gran # (Auto) 0.16 H (0.00-0.02) K/uL Absolute Nucleated RBC 0.03 H (0-0) K/uL PT 22.5 H (9.0-12.0) Seconds INR 2.2 H (0.9-1.1) APTT 50.1 H* (21.0-31.0) Seconds VBG pH (7.36-7.41) VBG pCO2 (38-50) mmHg Sodium (136-145) mmol/L POC Chloride (101-112) mmol/L Chloride (98-107) mmol/L POC Total CO2 (24-31) mmol/L Anion Gap (3-11) POC Creatinine (0.6-1.3) mg/dl POC Glucose (other) (70-99) mg/dl Calcium (8.5-10.1) mg/dl POC Ioniz Calcium Jad (1.12-1.32) mmol/l Total Bilirubin (0.2-1.0) mg/dl Direct Bilirubin (0-0.2) mg/dl AST (13-39) U/L ALT (7-52) U/L Alkaline Phosphatase (34-104) U/L Ammonia (18-72) umol/L Total Creatine Kinase (30-223) U/L Troponin I High Sens (0-20) pg/ml Total Protein (6.0-8.3) gm/dl Albumin (3.4-5.0) gm/dl Lipase (11-82) U/L Urine Appearance Cloudy A (Clear) Urine Ketones Trace H (Negative) Urine Nitrite Positive A (Negative) Urine Bilirubin 3+ H (Negative) Urine Urobilinogen Positive H (Negative) Ur Leukocyte Esterase Trace H (Negative) U Hyaline Cast (Auto) 5-10 H (0-5) /lpf U Epithel Cells (Auto) 10-20 H (0-5) /lpf Calcium Oxalate Crystal Present A (None Prsent) Granular Casts 1-5 H (0) /lpf Urine Mucus Present A (None Prsent) Salicylates (3.0-30) mg/dl Ethyl Alcohol mg/dL (<10.0) mg/dl Crossmatch 03/17/22 03/17/22 03/17/22 Range/Units 09:45 09:45 09:45 WBC (4.8-10.8) K/ul RBC (4.63-6.08) M/uL Hgb (14.0-18.0) g/dl POC Hgb (14.0-18.0) g/dl Hct (40.1-51.0) % POC Hct (42-52) % MCV (80.0-100.0) fL MCH (25.0-34.0) pg MCHC (32.0-36.0) g/dL RDW Std Deviation (36.4-46.3) fL RDW Coeff of Berny (11.5-14.5) % Plt Count (130-400) K/uL Neut # (Auto) (1.4-6.5) K/uL Wilbarger # (Auto) (0.24-0.82) K/uL Immature Gran # (Auto) (0.00-0.02) K/uL Absolute Nucleated RBC (0-0) K/uL PT (9.0-12.0) Seconds INR (0.9-1.1) APTT (21.0-31.0) Seconds VBG pH (7.36-7.41) VBG pCO2 (38-50) mmHg Sodium 131 L (136-145) mmol/L POC Chloride (101-112) mmol/L Chloride 97 L (98-107) mmol/L POC Total CO2 (24-31) mmol/L Anion Gap 13 H (3-11) POC Creatinine (0.6-1.3) mg/dl POC Glucose (other) (70-99) mg/dl Calcium 7.7 L (8.5-10.1) mg/dl POC Ioniz Calcium Jad (1.12-1.32) mmol/l Total Bilirubin 11.4 H (0.2-1.0) mg/dl Direct Bilirubin 5.9 H (0-0.2) mg/dl AST 309 H (13-39) U/L ALT 63 H (7-52) U/L Alkaline Phosphatase 141 H (34-104) U/L Ammonia 99.0 H (18-72) umol/L Total Creatine Kinase (30-223) U/L Troponin I High Sens (0-20) pg/ml Total Protein 8.9 H (6.0-8.3) gm/dl Albumin 2.0 L (3.4-5.0) gm/dl Lipase (11-82) U/L Urine Appearance (Clear) Urine Ketones (Negative) Urine Nitrite (Negative) Urine Bilirubin (Negative) Urine Urobilinogen (Negative) Ur Leukocyte Esterase (Negative) U Hyaline Cast (Auto) (0-5) /lpf U Epithel Cells (Auto) (0-5) /lpf Calcium Oxalate Crystal (None Prsent) Granular Casts (0) /lpf Urine Mucus (None Prsent) Salicylates < 3.0 L (3.0-30) mg/dl Ethyl Alcohol mg/dL (<10.0) mg/dl Crossmatch 03/17/22 03/17/22 03/17/22 Range/Units 09:45 09:45 10:00 WBC (4.8-10.8) K/ul RBC (4.63-6.08) M/uL Hgb (14.0-18.0) g/dl POC Hgb 7.5 L (14.0-18.0) g/dl Hct (40.1-51.0) % POC Hct 22 L (42-52) % MCV (80.0-100.0) fL MCH (25.0-34.0) pg MCHC (32.0-36.0) g/dL RDW Std Deviation (36.4-46.3) fL RDW Coeff of Berny (11.5-14.5) % Plt Count (130-400) K/uL Neut # (Auto) (1.4-6.5) K/uL Wilbarger # (Auto) (0.24-0.82) K/uL Immature Gran # (Auto) (0.00-0.02) K/uL Absolute Nucleated RBC (0-0) K/uL PT (9.0-12.0) Seconds INR (0.9-1.1) APTT (21.0-31.0) Seconds VBG pH (7.36-7.41) VBG pCO2 (38-50) mmHg Sodium (136-145) mmol/L POC Chloride 98 L (101-112) mmol/L Chloride (98-107) mmol/L POC Total CO2 22 L (24-31) mmol/L Anion Gap (3-11) POC Creatinine 1.7 H (0.6-1.3) mg/dl POC Glucose (other) 104 H (70-99) mg/dl Calcium (8.5-10.1) mg/dl POC Ioniz Calcium Jad 0.97 L (1.12-1.32) mmol/l Total Bilirubin (0.2-1.0) mg/dl Direct Bilirubin (0-0.2) mg/dl AST (13-39) U/L ALT (7-52) U/L Alkaline Phosphatase (34-104) U/L Ammonia (18-72) umol/L Total Creatine Kinase 289 H (30-223) U/L Troponin I High Sens 29.8 H (0-20) pg/ml Total Protein (6.0-8.3) gm/dl Albumin (3.4-5.0) gm/dl Lipase 118 H (11-82) U/L Urine Appearance (Clear) Urine Ketones (Negative) Urine Nitrite (Negative) Urine Bilirubin (Negative) Urine Urobilinogen (Negative) Ur Leukocyte Esterase (Negative) U Hyaline Cast (Auto) (0-5) /lpf U Epithel Cells (Auto) (0-5) /lpf Calcium Oxalate Crystal (None Prsent) Granular Casts (0) /lpf Urine Mucus (None Prsent) Salicylates (3.0-30) mg/dl Ethyl Alcohol mg/dL 190.9 H (<10.0) mg/dl Crossmatch 03/17/22 03/17/22 Range/Units 10:02 10:24 WBC (4.8-10.8) K/ul RBC (4.63-6.08) M/uL Hgb (14.0-18.0) g/dl POC Hgb (14.0-18.0) g/dl Hct (40.1-51.0) % POC Hct (42-52) % MCV (80.0-100.0) fL MCH (25.0-34.0) pg MCHC (32.0-36.0) g/dL RDW Std Deviation (36.4-46.3) fL RDW Coeff of Berny (11.5-14.5) % Plt Count (130-400) K/uL Neut # (Auto) (1.4-6.5) K/uL Wilbarger # (Auto) (0.24-0.82) K/uL Immature Gran # (Auto) (0.00-0.02) K/uL Absolute Nucleated RBC (0-0) K/uL PT (9.0-12.0) Seconds INR (0.9-1.1) APTT (21.0-31.0) Seconds VBG pH 7.44 H (7.36-7.41) VBG pCO2 31 L (38-50) mmHg Sodium (136-145) mmol/L POC Chloride (101-112) mmol/L Chloride (98-107) mmol/L POC Total CO2 (24-31) mmol/L Anion Gap (3-11) POC Creatinine (0.6-1.3) mg/dl POC Glucose (other) (70-99) mg/dl Calcium (8.5-10.1) mg/dl POC Ioniz Calcium Jad (1.12-1.32) mmol/l Total Bilirubin (0.2-1.0) mg/dl Direct Bilirubin (0-0.2) mg/dl AST (13-39) U/L ALT (7-52) U/L Alkaline Phosphatase (34-104) U/L Ammonia (18-72) umol/L Total Creatine Kinase (30-223) U/L Troponin I High Sens (0-20) pg/ml Total Protein (6.0-8.3) gm/dl Albumin (3.4-5.0) gm/dl Lipase (11-82) U/L Urine Appearance (Clear) Urine Ketones (Negative) Urine Nitrite (Negative) Urine Bilirubin (Negative) Urine Urobilinogen (Negative) Ur Leukocyte Esterase (Negative) U Hyaline Cast (Auto) (0-5) /lpf U Epithel Cells (Auto) (0-5) /lpf Calcium Oxalate Crystal (None Prsent) Granular Casts (0) /lpf Urine Mucus (None Prsent) Salicylates (3.0-30) mg/dl Ethyl Alcohol mg/dL (<10.0) mg Crossmatch See Detail Diagnostic Findings Cervical Spine CT 03/17/22 09:06 CT cervical spine wo con CLINICAL HISTORY: found down bathroom alcoholic ams TECHNIQUE: Multidetector row helical CT of the cervical spine was performed without administration of intravenous contrast. Coronal and sagittal reformations were obtained. Automated dose lowering techniques and/or adjustment according to patient size were utilized for this exam. Comparison: None available at the time of this dictation. FINDINGS: No acute fractures or subluxations are identified. Degenerative changes are seen in the visualized spine. The alignment is normal. Soft tissues are unremarkable. IMPRESSION: Degenerative changes without evidence of acute bony injury. ACT 112: Negative or not required by law. Electronically signed by: Jacques Bailey M.D. 03/17/2022 10:[address] 03/17/22 09:06 CT head/brain wo con CLINICAL HISTORY: 46 years-old Male with found down bathroom alcoholic ams. Acute head injury TECHNIQUE: Multiple axial CT images of the head were obtained without contrast. A dose lowering technique was utilized adhering to the principles of ALARA. COMPARISON: CT cervical spine of same day FINDINGS: No acute intracranial hemorrhage, midline shift, intracranial mass, hydrocephalus, territorial ischemia or abnormal extra-axial collection. The calvarium is intact. Polypoid mucosal thickening of the left maxillary sinus. The mastoid air cells are clear. Small left parietal scalp contusion. IMPRESSION: 1. No acute intracranial abnormality or calvarial fracture. 2. Small left parietal scalp contusion. ACT 112: Negative or not required by law. The above report was generated using voice recognition software. It may contain grammatical, syntax or spelling errors. Electronically signed by: Surinder Escobar M.D. 03/17/2022 10:32 AM Abdomen/Pelvis CT 03/17/22 10:03 CT abd pelvis wo con CLINICAL HISTORY: found down alcoholic TECHNIQUE: Helical axial images of the abdomen and pelvis were obtained. Automated dose lowering techniques and/or adjustment according to patient size were utilized for this exam. This exam was performed without intravenous contrast. CT DOSE: 3202.34 mGy.cm COMPARISON: None available at the time of this dictation. FINDINGS: Lower chest: No acute abnormality Liver: Hepatic steatosis is noted. Gallbladder and biliary tree: Patient is status post cholecystectomy. No intra- or extrahepatic biliary ductal dilation. Pancreas: Pancreas is diminutive for age. No definite peripancreatic stranding is seen against a background of ascites. Spleen: Unremarkable. Adrenals: Unremarkable. Kidneys and ureters: Unremarkable. Bladder: Limited evaluation due to underdistention. Reproductive organs: Unremarkable. Bowel: Prominent stool burden is noted in the rectum. The appendix is unremarkable. Postsurgical changes of gastric bypass. Lymph nodes Retroperitoneal: Unremarkable. Pelvic: Unremarkable. Mesenteric: Unremarkable. Peritoneum: Mild ascites is seen. Vessels: Unremarkable. Abdominal wall: Mild body wall edema is seen. Bones: Degenerative changes in the visualized spine. IMPRESSION: Hepatic steatosis and possible steatohepatitis in this patient with history of alcoholism. There is mild ascites. This is new from prior exam and may represent worsening liver disease. Additional findings as above. ACT 112: Negative or not required by law. Electronically signed by: Jacques Bailey M.D. 03/17/2022 10:33 AM Medications Administered Sinus tachycardia Cannot rule out Anterior infarct , age undetermined Abnormal ECG When compared with ECG of 02-FEB-2022 18:45, No significant change was found Code Status & VTE Plan Code Status Full code VTE Prophylaxis Plan VTE Prophylaxis will be ordered: Yes Supervising Physician Co-Signing Physician Notes Patient seen and examined with JOHN, agree with his note above. Patient presents here after being found down by significant other. She notes patient is becoming more confused over the past several days and has had unsteadiness at home. Patient has had extensive history of alcohol abuse in the past and was actually seen in our ER at the end of January for pancreatitis, left AGAINST MEDICAL ADVICE. From laboratory work and exam, it appears patient has acute liver failure, likely secondary to ongoing alcohol abuse. Was anemic, consideration to GI bleeding and certainly variceal bleed is a concern. Per meld and Madrey scores, patient has significant risk mortality in his current state. Patient is now admitted to the ICU. Was given a unit of packed red blood cells emergency room. Hemodynamically stable for now. Will continue thiamine and folate repletion. Rocephin for possible SBP. Patient was also started on Solu-Medrol. GI to evaluate further recommendations. PG Care Time/CCT Total # of Minutes Spent Total Time Spent with Patient: Total time spent is greater than 50% in coordination of care (as documented) at patient's floor/unit and/or counseling patient: Coding Level of Care Code 64314 Initial Inpt Care Lvl 3 Diagnoses Acute liver failure K72.00 Alcoholic hepatitis K70.11 Ascites presence: with ascites Acute blood loss anemia (ABLA) D62 GI bleed K92.2 GI bleed type/associated pathology: unspecified gastrointestinal hemorrhage type Hepatic encephalopathy K72.90 Alcoholic intoxication F10.929 TANVIR (acute kidney injury) N17.9 Hypocalcemia E83.51 Hyponatremia E87.1 Supratherapeutic INR R79.1 Thrombocytopenia D69.6 Hypertension I10 Hypertension type: unspecified Fall W19.XXXA (1) GI bleed GI bleed type/associated pathology: unspecified gastrointestinal hemorrhage type Qualified Code(s): K92.2 - Gastrointestinal hemorrhage, unspecified (2) Alcoholic hepatitis Ascites presence: with ascites Qualified Code(s): K70.11 - Alcoholic hepati tis with ascites (3) Hypertension Hypertension type: unspecified Qualified Code(s): I10 - Essential (primary) hypertension
[2022-03-17] MEDS ORDERED: cefTRIAXone SODIUM 2,000 MG/70 ML BAG IV SCH (14:30)
[2022-03-17] MEDS: PANTOprazole 40 MG in DEXTROSE 5% 100 ML IV SCH ×2 (15:03→19:54)
[2022-03-17] MEDS ORDERED: CALCIUM GLUCONATE 10% 1,000 MG in DEXTROSE 5% 50 ML IV ONE (15:05)
[2022-03-17] MEDS: cefTRIAXone SODIUM 2000MG/70ML D5W IV SCH (16:12)
[2022-03-17] MEDS: OCTREOTIDE ACETATE 500 MCG in DEXTROSE 5% 100 ML IV SCH (16:14)
[2022-03-17] MEDS ORDERED: ICU PROTOCOL FOR HYPERGLYCEMIA PRN ×2 (16:46→17:45)
--- NOTE | 2022-03-17 16:48 | Critical Care Consultation ---
Date of Consultation March 17, 2022 Assessment & Plan (1) Acute liver failure: (2) Hepatic encephalopathy: (3) Acute blood loss anemia (ABLA): (4) GI bleed: (5) Supratherapeutic INR: (6) TANVIR (acute kidney injury): (7) Acute alcohol intoxication: (8) Alcoholic hepatitis: Plan Impression: 46-year-old male with extensive alcohol history presenting now with altered level of consciousness likely secondary to combinations of hepatic encephalopathy as well as acute alcohol intoxication. His meld score is significantly elevated as his discriminant factor. He has anemia and an elevated INR. He has evidence of acute kidney injury as well. Recommendations: 1. Neurologic: Altered mental status likely secondary to acute alcohol intoxication as well as hepatic encephalopathy. We will restart lactulose at some point in time once the patient can take p.o. If ammonia increases and becomes problematic, consideration for rectal retention enemas might be appropriate. The patient has been written for Ativan however he cannot withdraw as he is acutely intoxicated. Alcohol withdrawal would typically manifest 3 to 5 days from the patient's last drink and so I do not think this will be an issue. We will place him on high-dose thiamine and folate for prevention of Warnicke and Korsakoff's. Ensure glucose and IV fluids. May need precedex if withdrawl becomes problematic. 2. Cardiovascular: Slightly tachycardic. May be volume depleted. Poor p.o. intake. Judicious fluids and follow. 3. Pulmonary: No current issues. Continue to follow clinically. May need oxygen. 4. GI: Cirrhosis with elevated meld and elevated discriminant score. Possible GI bleed. Unclear history of varices. Initiated on Rocephin. Ascites is small but may consider paracentesis if SBP remains a consideration. Await GI consultation. Continue Protonix and octreotide. N.p.o. for now pending GI evaluation. History of gastric bypass. Given his elevated discriminant factor, prednisolone 40 mg a day for the next 30days may be indicated, await GI evaluation. Patient significant other was advised that the patient has acute liver failure and continued alcohol abuse will likely result in the patient's demise. They are interested in alcohol cessation. We will get the patient sober and then repeat discussion and engage case management to see whether or not the patient wants to engage in alcohol detox. He has adequate IV peripheral access currently. 5. Renal: Acute kidney injury. Differential would be prerenal azotemia versus hepatorenal syndrome versus ATN. Continue to trend with fluid resuscitation. May need albumin support. ICU electrolyte replacement protocol 6. ID: No current issues. On Rocephin presumptively for esophageal varices. Await GI evaluation. 7. Heme-onc: Anemia and thrombocytopenia. Unclear if related to bone marrow suppression, or acute blood loss. Continue to follow for now. INR is elevated. He received FFP. If hemoglobin continues to drop, would reverse with Kcentra or FFP. We will check fibrinogen. Calcium supplementation may also be required. Serial hemoglobin and hematocrit with goals to transfuse to keep hemoglobin above 9. If platelet counts continue to decrease, may need transfusion to keep above 60,000. 8. Endocrine: Glycemic control per protocol 9. Hold DVT prophylaxis except for SCDs given coagulopathy and possible GI bleeding issues. Patient is critically ill at this point time. Unclear which direction he will go. He has significant possibility of clinical deterioration and/or . 50 minutes critical care time was spent in evaluation management stabilization of this patient The above recommendations and plan were discussed with the patient's significant other at bedside. Questions were answered to the best my ability. She expressed understanding with the plan History of Present Illness History of Present Illness Asked by hospitalist to assist in evaluation and management of this patient with acute alcohol intoxication and anemia. History is obtained from discussion with the patient significant other at the bedside as the patient is unable to provide any history due to being acutely intoxicated. The electronic medical record was also reviewed. Patient is a 46-year-old male with a history of extensive alcohol abuse. His significant other reports that he drinks about 1/5 of vodka every other day. He has no financial resources and she has been providing him with alcohol. He is never been diagnosed with cirrhosis previously. According to the significant other, they were contemplating rehab and getting some help however she called EMS and they brought him to the emergency room today due to the patient being obtunded. According to the significant other, his last drink was last evening. He is never had alcohol withdrawal seizures before. He does have a history of gastric bypass. In the emergency room he was noted to have an elevated ammonia level as well as anemia. He is received 1 unit of packed cells. He received vitamin K for elevated INR as well as Solu-Medrol for an elevated discriminant factor. The patient is unable to provide any additional history or answer any questions although he is alert. He is on room air and hemodynamically stable. GI consultation is pending. He has been initiated on Protonix as well as octreotide. Allergies Allergy/AdvReac Type Severity Reaction Status Date / Time Penicillins Allergy Mild Hives Verified 03/17/22 09:54 Home Medications Medication Instructions Recorded Confirmed Type amlodipine 5 mg tablet 5 mg PO DAILY 03/17/22 03/17/22 History cholecalciferol (vitamin D3) 50 0 mcg PO DAILY 03/17/22 03/17/22 History mcg (2,000 unit) capsule (Vitamin D3) cyanocobalamin (vitamin B-12) 0 mcg PO DAILY 03/17/22 03/17/22 History 1,000 mcg tablet (Vitamin B-12) hydrochlorothiazide 12.5 mg tablet 12.5 mg PO DAILY 03/17/22 03/17/22 History Patient History Medical History (Updated 03/17/22 @ 16:40 by Yobani Mondragon MD) Alcohol abuse Elevated liver enzymes Hypertension No pertinent family history No pertinent past medical history Surgical History No pertinent past surgical history Social History Smoking Status: Unknown if ever smoked Feels Safe at Home: Yes Review of Systems Review of Systems: Unobtainable due to reduced consciousness Physical Exam Constitutional: WD/WN, vitals as above Neck: trachea midline, no thyromegaly Respiratory: normal respiratory effort, lungs clear to auscultation Cardiovascular: RRR, no murmur, no edema Gastrointestinal (Abdomen): normal bowel sounds, soft, nontender, no hepatosplenomegaly Musculoskeletal: Extremities: extremities normal to inspection Skin: no rashes, warm and dry Neurologic: Nonfocal exam Lymphatic: no cervical lymphadenopathy Results & Data Results & Data ([facility]) Vital Signs (Past 12 Hours) Vital Signs Temp Pulse Pulse Resp BP BP Pulse Ox 03/17/22 15:54 37.0 C 111 H 16 130/70 98 03/17/22 15:37 110 H 15 128/77 98 03/17/22 14:37 37.0 C 112 H 14 119/74 96 03/17/22 14:00 121 H 21 143/98 H 99 03/17/22 14:07 37.1 C 123 H 16 143/98 H 98 03/17/22 13:52 37.0 C 125 H 16 126/87 97 03/17/22 13:27 36.9 C 133 H 16 160/88 H 98 03/17/22 12:30 112 H 13 129/69 98 03/17/22 12:02 123 H 15 160/108 H 98 03/17/22 12:00 125 H 14 98 03/17/22 11:30 114 H 15 168/87 H 98 03/17/22 12:14 108 H 18 160/108 H 99 03/17/22 11:00 112 H 13 120/97 100 03/17/22 10:30 120 H 22 160/87 H 100 03/17/22 10:22 120 H 22 149/86 H 100 03/17/22 10:00 115 H 14 145/77 H 98 03/17/22 09:55 122 H 18 137/73 98 03/17/22 09:50 108 H 12 98 03/17/22 09:40 109 H 12 97 03/17/22 09:30 113 H 12 97 03/17/22 09:20 121 H 12 97 03/17/22 09:10 114 H 21 98 03/17/22 09:01 120 H 13 140/81 98 03/17/22 09:08 98 03/17/22 08:57 37.1 C 123 H 16 140/81 98 O2 Del Method 03/17/22 15:54 03/17/22 15:37 03/17/22 14:37 03/17/22 14:00 Room Air 03/17/22 14:07 03/17/22 13:52 03/17/22 13:27 03/17/22 12:30 Room Air 03/17/22 12:02 Room Air 03/17/22 12:00 Room Air 03/17/22 11:30 Room Air 03/17/22 12:14 03/17/22 11:00 Room Air 03/17/22 10:30 Room Air 03/17/22 10:22 Room Air 03/17/22 10:00 Room Air 03/17/22 09:55 Room Air 03/17/22 09:50 Room Air 03/17/22 09:40 Room Air 03/17/22 09:30 Room Air 03/17/22 09:20 Room Air 03/17/22 09:10 Room Air 03/17/22 09:01 Room Air 03/17/22 09:08 Room Air 03/17/22 08:57 Room Air Critical Care Results & Data Vital Signs (Past 12 Hours) Vital Signs Temp Pulse Pulse Resp BP BP Pulse Ox 03/17/22 15:54 37.0 C 111 H 16 130/70 98 03/17/22 15:37 110 H 15 128/77 98 03/17/22 14:37 37.0 C 112 H 14 119/74 96 03/17/22 14:00 121 H 21 143/98 H 99 03/17/22 14:07 37.1 C 123 H 16 143/98 H 98 03/17/22 13:52 37.0 C 125 H 16 126/87 97 03/17/22 13:27 36.9 C 133 H 16 160/88 H 98 03/17/22 12:30 112 H 13 129/69 98 03/17/22 12:02 123 H 15 160/108 H 98 03/17/22 12:00 125 H 14 98 03/17/22 11:30 114 H 15 168/87 H 98 03/17/22 12:14 108 H 18 160/108 H 99 03/17/22 11:00 112 H 13 120/97 100 03/17/22 10:30 120 H 22 160/87 H 100 03/17/22 10:22 120 H 22 149/86 H 100 03/17/22 10:00 115 H 14 145/77 H 98 03/17/22 09:55 122 H 18 137/73 98 03/17/22 09:50 108 H 12 98 03/17/22 09:40 109 H 12 97 03/17/22 09:30 113 H 12 97 03/17/22 09:20 121 H 12 97 03/17/22 09:10 114 H 21 98 03/17/22 09:01 120 H 13 140/81 98 03/17/22 09:08 98 03/17/22 08:57 37.1 C 123 H 16 140/81 98 O2 Del Method 03/17/22 15:54 03/17/22 15:37 03/17/22 14:37 03/17/22 14:00 Room Air 03/17/22 14:07 03/17/22 13:52 03/17/22 13:27 03/17/22 12:30 Room Air 03/17/22 12:02 Room Air 03/17/22 12:00 Room Air 03/17/22 11:30 Room Air 03/17/22 12:14 03/17/22 11:00 Room Air 03/17/22 10:30 Room Air 03/17/22 10:22 Room Air 03/17/22 10:00 Room Air 03/17/22 09:55 Room Air 03/17/22 09:50 Room Air 03/17/22 09:40 Room Air 03/17/22 09:30 Room Air 03/17/22 09:20 Room Air 03/17/22 09:10 Room Air 03/17/22 09:01 Room Air 03/17/22 09:08 Room Air 03/17/22 08:57 Room Air Lab & Micro Results (Past 24 Hours) RBC 1.75 M/uL (4.63-6.08) L 03/17/22 WBC 13.31 K/ul (4.8-10.8) H 03/17/22 Hgb 6.5 g/dl (14.0-18.0) L* 03/17/22 Hct 17.7 % (40.1-51.0) L* 03/17/22 MCV 101.1 fL (80.0-100.0) H 03/17/22 MCH 37.1 pg (25.0-34.0) H 03/17/22 MCHC 36.7 g/dL (32.0-36.0) H 03/17/22 RDW Standard Deviation 80.1 fL (36.4-46.3) H 03/17/22 RDW Coefficient of Variation 22.5 % (11.5-14.5) H 03/17/22 Plt Count 78 K/uL (130-400) L 03/17/22 MPV 10.5 fL (9.4-12.4) 03/17/22 Nucleated Red Blood Cells % (auto) 0.2 % 03/17 Nucleated RBC Absolute Count (auto) 0.03 K/uL (0-0) H 04/30 Neutrophils (%) (Auto) 76.9 % 03/17/22 Lymphocytes (%) (Auto) 14.6 % 03/17/22 Monocytes # (Auto) 0.84 K/uL (0.24-0.82) H 03/17/22 Eosinophils # (Auto) 0.05 K/uL (0-0.50) 03/17/22 Immature Granulocyte % (Auto) 1.2 % 03/17/22 Neutrophils # (Auto) 10.24 K/uL (1.4-6.5) H 03/17/22 Lymphocytes # (Auto) 1.94 K/uL (1.2-3.4) 03/17/22 Monocytes # (Auto) 0.84 K/uL (0.24-0.82) H 03/17/22 Eosinophils # (Auto) 0.05 K/uL (0-0.50) 03/17/22 Basophils # (Auto) 0.08 K/uL (0-0.2) 03/17/22 Immature Granulocyte # (Auto) 0.16 K/uL (0.00-0.02) H 03/17 Pappenheimer Bodies Occasional 03/17/22 Target Cells 2+ 03/17/22 Jovel-Hamden Bodies Occasional 03/17/22 Na 131 mmol/L (136-145) L 03/17/22 K 4.1 mmol/L (3.5-5.1) 03/17/22 Cl 97 mmol/L (98-107) L 03/17/22 CO2 21 mmol/L (21-32) 03/17/22 Anion Gap 13 (3-11) H 03/17/22 BUN 15 mg/dl (6-23) 03/17/22 Creatinine 1.30 mg/dl (0.6-1.4) 03/17/22 Estimated GFR ( Amer) 76.4 ml/min 03/17/22 Estimated GFR (Non-Af Amer) 65.9 ml/min 03/17/22 BUN/Creatinine Ratio 11.5 (10-20) 03/17/22 Glu 96 mg/dl (70-99(Fasting)) 03/17/22 Ca 7.7 mg/dl (8.5-10.1) L 03/17/22 Total Bilirubin 11.4 mg/dl (0.2-1.0) H 03/17/22 Direct Bilirubin 5.9 mg/dl (0-0.2) H 03/17/22 AST 309 U/L (13-39) H 03/17/22 ALT 63 U/L (7-52) H 03/17/22 Alkaline Phosphatase 141 U/L (34-104) H 03/17/22 TP 8.9 gm/dl (6.0-8.3) H 03/17/22 Albumin 2.0 gm/dl (3.4-5.0) L 03/17/22 Mg 1.8 mg/dl (1.7-2.4) 03/17/22 09:45 Calcium Level 7.7 mg/dl (8.5-10.1) L 03/17/22 09:45 Prothromb Time International Ratio 2.2 (0.9-1.1) H 03/17/22 09 :45 Venous Blood pH 7.44 (7.36-7.41) H 03/17/22 10:02 Venous Blood Partial Pressure CO2 31 mmHg (38-50) L 03/17/22 10 :02 Venous Blood Partial Pressure O2 58 mmHg 03/17/22 10:02 Venous Blood HCO3 21 mmol/L 03/17/22 10:02 Venous Blood Base Excess -2.1 mEq/L 03/17/22 10:02 Venous Blood Oxygen Saturation 91.3 % 03/17/22 10:02 Diagnostic Findings (Past 24 Hours) Cervical Spine CT 03/17/22 09:06 CT cervical spine wo con CLINICAL HISTORY: found down bathroom alcoholic ams TECHNIQUE: Multidetector row helical CT of the cervical spine was performed without administration of intravenous contrast. Coronal and sagittal reformations were obtained. Automated dose lowering techniques and/or adjustment according to patient size were utilized for this exam. Comparison: None available at the time of this dictation. FINDINGS: No acute fractures or subluxations are identified. Degenerative changes are seen in the visualized spine. The alignment is normal. Soft tissues are unremarkable. IMPRESSION: Degenerative changes without evidence of acute bony injury. ACT 112: Negative or not required by law. Electronically signed by: Jacques Bailey M.D. 03/17/2022 10:[address] 03/17/22 09:06 CT head/brain wo con CLINICAL HISTORY: 46 years-old Male with found down bathroom alcoholic ams. Acute head injury TECHNIQUE: Multiple axial CT images of the head were obtained without contrast. A dose lowering technique was utilized adhering to the principles of ALARA. COMPARISON: CT cervical spine of same day FINDINGS: No acute intracranial hemorrhage, midline shift, intracranial mass, hydrocephalus, territorial ischemia or abnormal extra-axial collection. The calvarium is intact. Polypoid mucosal thickening of the left maxillary sinus. The mastoid air cells are clear. Small left parietal scalp contusion. IMPRESSION: 1. No acute intracranial abnormality or calvarial fracture. 2. Small left parietal scalp contusion. ACT 112: Negative or not required by law. The above report was generated using voice recognition software. It may contain grammatical, syntax or spelling errors. Electronically signed by: Surinder Escobar M.D. 03/17/2022 10:32 AM Abdomen/Pelvis CT 03/17/22 10:03 CT abd pelvis wo con CLINICAL HISTORY: found down alcoholic TECHNIQUE: Helical axial images of the abdomen and pelvis were obtained. Automated dose lowering techniques and/or adjustment according to patient size were utilized for this exam. This exam was performed without intravenous contrast. CT DOSE: 3202.34 mGy.cm COMPARISON: None available at the time of this dictation. FINDINGS: Lower chest: No acute abnormality Liver: Hepatic steatosis is noted. Gallbladder and biliary tree: Patient is status post cholecystectomy. No intra- or extrahepatic biliary ductal dilation. Pancreas: Pancreas is diminutive for age. No definite peripancreatic stranding is seen against a background of ascites. Spleen: Unremarkable. Adrenals: Unremarkable. Kidneys and ureters: Unremarkable. Bladder: Limited evaluation due to underdistention. Reproductive organs: Unremarkable. Bowel: Prominent stool burden is noted in the rectum. The appendix is unremar kable. Postsurgical changes of gastric bypass. Lymph nodes Retroperitoneal: Unremarkable. Pelvic: Unremarkable. Mesenteric: Unremarkable. Peritoneum: Mild ascites is seen. Vessels: Unremarkable. Abdominal wall: Mild body wall edema is seen. Bones: Degenerative changes in the visualized spine. IMPRESSION: Hepatic steatosis and possible steatohepatitis in this patient with history of alcoholism. There is mild ascites. This is new from prior exam and may represent worsening liver disease. Additional findings as above. ACT 112: Negative or not required by law. Electronically signed by: Jacques Bailey M.D. 03/17/2022 10:33 AM I & O Totals 24 Hours 03/16/22 03/17/22 03/18/22 06:59 06:59 06:59 Intake Total 1180 / 1180 Balance 1180 / 1180 Cumulative 03/17/22 08:39 thru 03/17/22 16:13 Intake Total 1180 Balance 1180 RT Ventilator Mngmt (Last Documented) Ventilator Ordered Settings Respiratory Rate 16 03/17/22 15:54 Ventilator - PT Measurements Respiratory Rate 16 Coding Level of Care Code Critical Care 1st 30-74 mins Diagnoses Acute liver failure K72.00 Hepatic encephalopathy K72.90 Acute blood loss anemia (ABLA) D62 GI bleed K92.2 GI bleed type/associated pathology: unspecified gastrointestinal hemorrhage type Supratherapeutic INR R79.1 TANVIR (acute kidney injury) N17.9 Acute alcohol intoxication F10.929 Alcoholic hepatitis K70.11 Ascites presence: with ascites (1) GI bleed GI bleed type/associated pathology: unspecified gastrointestinal hemorrhage type Qualified Code(s): K92.2 - Gastrointestinal hemorrhage, unspecified (2) Alcoholic hepatitis Ascites presence: with ascites Qualified Code(s): K70.11 - Alcoholic hepatitis with ascites
[2022-03-17 17:10] LABS: Hemoglobin 6.1 g/dl (14.0-18.0); Mean Corpuscular Hemoglobin 35.7 pg (25.0-34.0); Mean Corpuscular Hgb Conc 35.9 g/dL (32.0-36.0); Mean Corpuscular Volume 99.4 fL (80.0-100.0); Mean Platelet Volume 10.5 fL (9.4-12.4); Nucleated RBC # (auto) 0.03 K/uL (0-0); Nucleated RBC % (auto) 0.2 %; Platelet Count 73 K/uL (130-400); RDW Coefficient of Variation 21.2 % (11.5-14.5); RDW Standard Deviation 72.1 fL (36.4-46.3); Red Blood Count 1.71 M/uL (4.63-6.08); White Blood Count 12.05 K/ul (4.8-10.8)
[2022-03-17 17:29] LABS: Fibrinogen 58 mg/dl (184-400)
[2022-03-17] MEDS ORDERED: MULTI-VITAMIN INFUSION 10 ML, THIAMINE HCL 100 MG, FOLIC ACID 1 MG in SODIUM CHLORIDE 0... IV ONE (17:45)
[2022-03-17] MEDS ORDERED: LORazepam 3 MG in SYRINGE 1.5 ML IV PRN (17:45)
[2022-03-17] MEDS ORDERED: LORazepam 2 MG in SYRINGE 1 ML IV PRN (17:45)
[2022-03-17] MEDS ORDERED: LORazepam 1 MG in SYRINGE 0.5 ML IV PRN (17:45)
[2022-03-17] MEDS ORDERED: Ativan IV Alcohol Withdrawal--Active Protocol IV PRN (17:45)
[2022-03-17] MEDS: FOLIC ACID 1 MG in SYRINGE 9.8 ML IV SCH (18:31)
[2022-03-17] MEDS: D5NSS + 20MEQ KCL 20 MEQ/1,000 ML BAG IV SCH (19:53)
[2022-03-17 20:33] LABS: Hematocrit (blood only) 19.8 % (40.1-51.0); Hemoglobin 7.2 g/dl (14.0-18.0)
[2022-03-17] MEDS: THIAMINE HCL 100 MG in SYRINGE 9 ML IV SCH (20:44)
--- NOTE | 2022-03-17 21:04 | Procedure Note ---
Procedure Note Date of Service March 17, 2022 Note Procedure: Penitentiary Indwelling Peripherally Inserted IV Catheter Placement Attending: Dr. Mondragon APC: Eliceo Gutierrez PA-C Indication: Need for IV Access, Poor Vascular Access Anesthesia: None Verbal consent was obtained from patient prior to performing the procedure. A time-out was completed verifying correct patient, procedure, site, positioning, and implant(s) or special equipment if applicable. Utilizing bedside ultrasound, vascularity of the RIGHT upper extremity was assessed. Vessel size was noted for appropriate catheter selection and skin was marked with gentle pressure. Patients RIGHT upper extremity was prepped and draped in the usual sterile fashion utilizing chlorhexidine. Ultrasound guidance was used to aid needle placement. A 20 g Endurance Catheter was introduced into the RIGHT Brachial vein under direct ultrasound guidance. Guide wire was easily deployed without resistance. Catheter was threaded over the guide wire without resistance and the entire apparatus was removed intact. Good venous blood return was noted in the catheter. The IV catheter was easily flushed with sterile saline flush. Sterile clave was attached to the end of the catheter and good blood return was again noted. Tourniquet was released. StatLock device and sterile dressing were applied. The patient tolerated the procedure well. Blood Loss: Minimal Complications: None Procedural Ultrasound Guidance: Procedure Date: 03/17/2022 Indication: Poor Vascular Access Attending: Dr. Mondragon APC: Eliceo Gutierrez PA-C Artery/Veins Identified: YES Access confirmed in Vein with ultrasound: YES Complications: NONE Patient tolerated procedure: WELL Coding CPT Codes Tubes, Drains, and Vasc Access - Tubes, Drains, and Vasc Access: [id number] Venipuncture, Age 4/>Req phys skill, (sep proc), Dx/Tx (not rtn) ([id number]) [facility] [place] Procedure Codes (Charges) Tubes, Drains, and Vasc Access Procedure 1: Tubes, Drains, and Vasc Access: [id number] Venipuncture, Age 4/>Req phys skill, (sep proc), Dx/Tx (not rtn)
[2022-03-17] MEDS: ICU ELECTROLYTE REPLACEMENT PROTOCOL SCH (23:12)
[2022-03-18 01:16] LABS: Hematocrit (blood only) 19.2 % (40.1-51.0); Hemoglobin 6.7 g/dl (14.0-18.0); Mean Corpuscular Hemoglobin 34.7 pg (25.0-34.0); Mean Corpuscular Hgb Conc 34.9 g/dL (32.0-36.0); Mean Corpuscular Volume 99.5 fL (80.0-100.0); Mean Platelet Volume 10.3 fL (9.4-12.4); Nucleated RBC # (auto) 0.02 K/uL (0-0); Nucleated RBC % (auto) 0.2 %; Platelet Count 70 K/uL (130-400); RDW Coefficient of Variation 21.6 % (11.5-14.5); Red Blood Count 1.93 M/uL (4.63-6.08); White Blood Count 11.09 K/ul (4.8-10.8)
[2022-03-18] MEDS ORDERED: SODIUM CHLORIDE 0.9% 250 ML IV PRN ×4 (01:20→23:21)
[2022-03-18 01:22] LABS: BUN Creatinine Ratio 13.5 (10-20); Calcium 7.6 mg/dl (8.5-10.1); Creatinine Clr Calc Pharmacy 122.5 ml/min; Est GFR (African American) 92.5 ml/min; Est GFR (Non-African American) 79.8 ml/min; Potassium 4.8 mmol/L (3.5-5.1)
[2022-03-18] MEDS: PANTOprazole 40 MG in DEXTROSE 5% 100 ML IV SCH ×6 (01:50→20:49)
[2022-03-18] MEDS: OCTREOTIDE ACETATE 500 MCG in DEXTROSE 5% 100 ML IV SCH ×4 (01:51→22:59)
[2022-03-18 01:54] LABS: Anisocytosis Present; Basophils # (auto) 0.04 K/uL (0-0.2); Basophils % (auto) 0.4 %; Eosinophils # (auto) 0.01 K/uL (0-0.50); Eosinophils % (auto) 0.1 %; Hypochromasia Present; Immature Granulocytes # (auto) 0.11 K/uL (0.00-0.02); Lymphocytes # (auto) 0.71 K/uL (1.2-3.4); Lymphocytes % (auto) 6.4 %; Monocytes # (auto) 0.67 K/uL (0.24-0.82); Neutrophils # (auto) 9.55 K/uL (1.4-6.5); Neutrophils % (auto) 86.1 %; Target Cells 2+
[2022-03-18] MEDS: D5NSS + 20MEQ KCL 20 MEQ/1,000 ML BAG IV SCH (05:45)
--- NOTE | 2022-03-18 06:13 | Electrocardiogram Report ---
Test Reason : Blood Pressure : / mmHG Vent. Rate : 121 BPM Atrial Rate : 121 BPM P-R Int : 140 ms QRS Dur : 088 ms QT Int : 336 ms P-R-T Axes : 039 -18 081 degrees QTc Int : 477 ms Sinus tachycardia Cannot rule out Anterior infarct , age undetermined Nonspecific T wave abnormality Abnormal ECG When compared with ECG of 02-FEB-2022 18:45, No significant change was found Confirmed by Terry Aguilera ([id number]) on 03/18/2022 6:13:33 AM Referred By: REFERRED SELF Confirmed By:Terry Aguilera
--- NOTE | 2022-03-18 08:34 | Critical Care Progress Note ---
Date of Service March 18, 2022 Assessment & Plan (1) Acute liver failure: (2) Hepatic encephalopathy: (3) Acute blood loss anemia (ABLA): (4) GI bleed: (5) Supratherapeutic INR: (6) TANVIR (acute kidney injury): (7) Acute alcohol intoxication: (8) Alcoholic hepatitis: Plan Impression: 46-year-old male with extensive alcohol history presenting now with altered level of consciousness likely secondary to combinations of hepatic encephalopathy as well as acute alcohol intoxication. His meld score is significantly elevated as his discriminant factor. He has anemia and an elevated INR. He has evidence of acute kidney injury as well. Recommendations: 1. Neurologic: Altered mental status likely secondary to hepatic encephalopathy. Patient was acutely intoxicated on presentation so do not think alcohol withdrawal is going to be an issue for the next 48 to 72 hours. Con tinue high-dose thiamine. Would like to start lactulose and rifaximin once the patient can take p.o. when cleared by GI. 2. Cardiovascular: Tachycardia, sinus tach. Continue to follow currently. 3. Pulmonary: No current issues. Continue to follow clinically. 4. GI: Cirrhosis with elevated meld and elevated discriminant score. Probable ongoing GI bleed. Unclear history of varices. Initiated on Rocephin. Ascites is small but may consider paracentesis if SBP remains a consideration. Reviewed GI consultation. Continue Protonix and octreotide. N.p.o. for now pending GI evaluation. History of gastric bypass. On methylprednisolone for elevated discriminant factor and alcoholic hepatitis. 5. Renal: Acute kidney injury. Differential would be prerenal azotemia versus hepatorenal syndrome versus ATN. Continue to trend with fluid resuscitation. May need albumin support. ICU electrolyte replacement protocol 6. ID: No current issues. On Rocephin presumptively for esophageal varices. Await GI evaluation. 7. Heme-onc: Transfusion additional unit of FFP for elevated INR, additional unit of packed cells to try and target hemoglobin above 8, and cryo for fibrinogen less than 200 in actively bleeding patient. Follow-up studies after blood products 8. Endocrine: Glycemic control per protocol 9. Hold DVT prophylaxis except for SCDs given coagulopathy and possible GI bleeding issues. Patient is critically ill with significant possibility of clinical deterioration. A total of 45 minutes was spent in evaluation management of this patient including discussion of multidisciplinary rounds and with patient at bedside. Admission and Anticipated Discharge Date Admission Date: March 17, 2022 Subjective Patient seen and examined. EMR reviewed. Discussed with patient and critical care nurse at bedside as well as on multidisciplinary rounds. The patient sensorium is improving but he remains slightly obtunded. He denies any localizing symptoms including abdominal pain nausea or vomiting. He has not had any evidence of hematemesis melena or hematochezia. He is still pending GI evaluation. He has received a total of 4 units of packed cells, 1 unit of FFP, and 1 unit of cryo to date. Review of Systems Review of Systems: All systems reviewed & are unremarkable except as noted in Subjective Physical Exam Constitutional: WD/WN, vitals as above Eyes: sclerae not anicteric Neck: trachea midline, no thyromegaly Respiratory: normal respiratory effort, lungs clear to auscultation Cardiovascular: RRR, no murmur, no edema Gastrointestinal (Abdomen): normal bowel sounds, soft, nontender, no hepatosplenomegaly Musculoskeletal: Extremities: extremities normal to inspection Skin: no rashes, warm and dry Neurologic: Asterixis noted Lymphatic: no cervical lymphadenopathy Results & Data Results & Data ([facility]) Vital Signs (Past 12 Hours) Vital Signs Temp Pulse Pulse Resp BP BP Pulse Ox 03/18/22 07:56 03/18/22 07:49 37.2 C 03/18/22 07:35 117 H 03/18/22 07:15 124 H 14 99 03/18/22 07:15 138/89 03/18/22 07:00 122 H 20 96 03/18/22 07:00 108/76 03/18/22 06:00 114 H 21 100/80 98 03/18/22 05:00 144 H 21 149/116 H 98 03/18/22 04:00 127 H 16 159/96 H 95 03/18/22 05:48 37.2 C 113 H 14 141/89 H 98 03/18/22 05:13 37.2 C 116 H 27 H 123/73 94 03/18/22 04:48 37.2 C 114 H 14 128/91 98 03/18/22 04:33 37.2 C 117 H 21 134/89 99 03/18/22 04:18 37.2 C 130 H 17 157/104 H 99 03/18/22 04:03 37.2 C 126 H 16 159/96 H 94 03/18/22 03:47 37.2 C 137 H 20 149/91 H 100 03/18/22 03:00 113 H 14 128/83 98 03/18/22 02:00 116 H 13 153/88 H 03/18/22 03:18 37.2 C 112 H 14 128/83 97 03/18/22 02:48 37.2 C 120 H 17 133/71 99 03/18/22 02:33 37.2 C 75 13 131/78 96 03/18/22 02:18 37.2 C 117 H 11 L 147/110 H 99 03/18/22 01:00 117 H 15 131/75 94 03/18/22 00:00 116 H 13 163/100 H 99 03/18/22 02:03 37.2 C 120 H 17 153/88 H 100 03/18/22 01:32 37.4 C 120 H 15 139/82 99 03/18/22 01:48 37.2 C 113 H 12 162/85 H 98 03/18/22 00:16 37.2 C 112 H 12 152/87 H 99 03/18/22 00:12 37.1 C 114 H 17 152/87 H 99 03/17/22 23:57 37.1 C 108 H 12 163/100 H 98 03/17/22 23:41 37.1 C 116 H 17 150/94 H 99 03/18/22 00:25 37.2 C 123 H 14 153/95 H 98 03/17/22 23:41 37.1 C 113 H 17 159/99 H 100 03/17/22 23:35 37.2 C 112 H 12 147/102 H 99 03/17/22 23:34 37.2 C 115 H 12 147/102 H 99 03/17/22 23:26 37.2 C 120 H 14 147/102 H 99 03/17/22 23:11 37.2 C 120 H 13 147/102 H 100 03/17/22 23:20 105 H 03/17/22 23:00 109 H 14 155/94 H 98 03/17/22 22:49 37.2 C 113 H 12 157/95 H 99 03/17/22 22:47 37.2 C 116 H 13 157/95 H 98 03/17/22 22:41 37.0 C 114 H 13 149/91 H 100 03/17/22 22:35 37.0 C 146 H 14 146/94 H 100 03/17/22 22:20 03/17/22 22:20 37.4 C 119 H 14 146/81 H 99 03/17/22 22:00 108 H 13 155/87 H 97 03/17/22 21:00 116 H 15 148/85 H 97 03/17/22 23:03 37.2 C 104 H 14 148/90 H 98 03/17/22 22:56 37.2 C 105 H 14 155/94 H 98 03/17/22 22:35 37.2 C 113 H 13 149/91 H 100 03/17/22 21:35 37.4 C 113 H 13 167/90 H 100 03/17/22 21:32 37.4 C 114 H 14 165/93 H 100 03/17/22 21:24 37.4 C 124 H 15 165/93 H 100 03/17/22 21:09 37.4 C 112 H 14 165/93 H 99 03/17/22 21:05 37.4 C 116 H 15 165/93 H 99 03/17/22 20:50 37.4 C 118 H 13 98/67 L 98 03/17/22 20:50 37.4 C 123 H 14 98/67 L 100 03/17/22 20:35 37.4 C 117 H 14 138/78 100 O2 Del Method 03/18/22 07:56 Room Air 03/18/22 07:49 03/18/22 07:35 03/18/22 07:15 03/18/22 07:15 03/18/22 07:00 03/18/22 07:00 03/18/22 06:00 03/18/22 05:00 03/18/22 04:00 03/18/22 05:48 03/18/22 05:13 03/18/22 04:48 03/18/22 04:33 03/18/22 04:18 03/18/22 04:03 03/18/22 03:47 03/18/22 03:00 03/18/22 02:00 03/18/22 03:18 03/18/22 02:48 03/18/22 02:33 03/18/22 02:18 03/18/22 01:00 03/18/22 00:00 03/18/22 02:03 03/18/22 01:32 03/18/22 01:48 03/18/22 00:16 03/18/22 00:12 03/17/22 23:57 03/17/22 23:41 03/18/22 00:25 03/17/22 23:41 03/17/22 23:35 03/17/22 23:34 03/17/22 23:26 03/17/22 23:11 03/17/22 23:20 03/17/22 23:00 Room Air 03/17/22 22:49 03/17/22 22:47 03/17/22 22:41 03/17/22 22:35 03/17/22 22:20 Room Air 03/17/22 22:20 Room Air 03/17/22 22:00 03/17/22 21:00 03/17/22 23:03 03/17/22 22:56 03/17/22 22:35 03/17/22 21:35 03/17/22 21:32 03/17/22 21:24 03/17/22 21:09 03/17/22 21:05 03/17/22 20:50 03/17/22 20:50 03/17/22 20:35 Critical Care Results & Data Vital Signs (Past 12 Hours) Vital Signs Temp Pulse Pulse Resp BP BP Pulse Ox 03/18/22 07:56 03/18/22 07:49 37.2 C 03/18/22 07:35 117 H 03/18/22 07:15 124 H 14 99 03/18/22 07:15 138/89 03/18/22 07:00 122 H 20 96 03/18/22 07:00 108/76 03/18/22 06:00 114 H 21 100/80 98 03/18/22 05:00 144 H 21 149/116 H 98 03/18/22 04:00 127 H 16 159/96 H 95 03/18/22 05:48 37.2 C 113 H 14 141/89 H 98 03/18/22 05:13 37.2 C 116 H 27 H 123/73 94 03/18/22 04:48 37.2 C 114 H 14 128/91 98 03/18/22 04:33 37.2 C 117 H 21 134/89 99 03/18/22 04:18 37.2 C 130 H 17 157/104 H 99 03/18/22 04:03 37.2 C 126 H 16 159/96 H 94 03/18/22 03:47 37.2 C 137 H 20 149/91 H 100 03/18/22 03:00 113 H 14 128/83 98 03/18/22 02:00 116 H 13 153/88 H 03/18/22 03:18 37.2 C 112 H 14 128/83 97 03/18/22 02:48 37.2 C 120 H 17 133/71 99 03/18/22 02:33 37.2 C 75 13 131/78 96 03/18/22 02:18 37.2 C 117 H 11 L 147/110 H 99 03/18/22 01:00 117 H 15 131/75 94 03/18/22 00:00 116 H 13 163/100 H 99 03/18/22 02:03 37.2 C 120 H 17 153/88 H 100 03/18/22 01:32 37.4 C 120 H 15 139/82 99 03/18/22 01:48 37.2 C 113 H 12 162/85 H 98 03/18/22 00:16 37.2 C 112 H 12 152/87 H 99 03/18/22 00:12 37.1 C 114 H 17 152/87 H 99 03/17/22 23:57 37.1 C 108 H 12 163/100 H 98 03/17/22 23:41 37.1 C 116 H 17 150/94 H 99 03/18/22 00:25 37.2 C 123 H 14 153/95 H 98 03/17/22 23:41 37.1 C 113 H 17 159/99 H 100 03/17/22 23:35 37.2 C 112 H 12 147/102 H 99 03/17/22 23:34 37.2 C 115 H 12 147/102 H 99 03/17/22 23:26 37.2 C 120 H 14 147/102 H 99 03/17/22 23:11 37.2 C 120 H 13 147/102 H 100 03/17/22 23:20 105 H 03/17/22 23:00 109 H 14 155/94 H 98 03/17/22 22:49 37.2 C 113 H 12 157/95 H 99 03/17/22 22:47 37.2 C 116 H 13 157/95 H 98 03/17/22 22:41 37.0 C 114 H 13 149/91 H 100 03/17/22 22:35 37.0 C 146 H 14 146/94 H 100 03/17/22 22:20 03/17/22 22:20 37.4 C 119 H 14 146/81 H 99 03/17/22 22:00 108 H 13 155/87 H 97 03/17/22 21:00 116 H 15 148/85 H 97 03/17/22 23:03 37.2 C 104 H 14 148/90 H 98 03/17/22 22:56 37.2 C 105 H 14 155/94 H 98 03/17/22 22:35 37.2 C 113 H 13 149/91 H 100 03/17/22 21:35 37.4 C 113 H 13 167/90 H 100 03/17/22 21:32 37.4 C 114 H 14 165/93 H 100 03/17/22 21:24 37.4 C 124 H 15 165/93 H 100 03/17/22 21:09 37.4 C 112 H 14 165/93 H 99 03/17/22 21:05 37.4 C 116 H 15 165/93 H 99 03/17/22 20:50 37.4 C 118 H 13 98/67 L 98 03/17/22 20:50 37.4 C 123 H 14 98/67 L 100 03/17/22 20:35 37.4 C 117 H 14 138/78 100 O2 Del Method 03/18/22 07:56 Room Air 03/18/22 07:49 03/18/22 07:35 03/18/22 07:15 03/18/22 07:15 03/18/22 07:00 03/18/22 07:00 03/18/22 06:00 03/18/22 05:00 03/18/22 04:00 03/18/22 05:48 03/18/22 05:13 03/18/22 04:48 03/18/22 04:33 03/18/22 04:18 03/18/22 04:03 03/18/22 03:47 03/18/22 03:00 03/18/22 02:00 03/18/22 03:18 03/18/22 02:48 03/18/22 02:33 03/18/22 02:18 03/18/22 01:00 03/18/22 00:00 03/18/22 02:03 03/18/22 01:32 03/18/22 01:48 03/18/22 00:16 03/18/22 00:12 03/17/22 23:57 03/17/22 23:41 03/18/22 00:25 03/17/22 23:41 03/17/22 23:35 03/17/22 23:34 03/17/22 23:26 03/17/22 23:11 03/17/22 23:20 03/17/22 23:00 Room Air 03/17/22 22:49 03/17/22 22:47 03/17/22 22:41 03/17/22 22:35 03/17/22 22:20 Room Air 03/17/22 22:20 Room Air 03/17/22 22:00 03/17/22 21:00 03/17/22 23:03 03/17/22 22:56 03/17/22 22:35 03/17/22 21:35 03/17/22 21:32 03/17/22 21:24 03/17/22 21:09 03/17/22 21:05 03/17/22 20:50 03/17/22 20:50 03/17/22 20:35 Lab & Micro Results (Past 24 Hours) RBC 2.34 M/uL (4.63-6.08) L 03/18/22 WBC 12.06 K/ul (4.8-10.8) H 03/18/22 Hgb 7.7 g/dl (14.0-18.0) L 03/18/22 Hct 21.8 % (40.1-51.0) L 03/18/22 MCV 93.2 fL (80.0-100.0) 03/18/22 MCH 32.9 pg (25.0-34.0) 03/18/22 MCHC 35.3 g/dL (32.0-36.0) 03/18/22 RDW Standard Deviation 61.9 fL (36.4-46.3) H 03/18/22 RDW Coefficient of Variation 21.3 % (11.5-14.5) H 03/18/22 Plt Count 67 K/uL (130-400) L 03/18/22 MPV 10.4 fL (9.4-12.4) 03/18/22 Nucleated Red Blood Cells % (auto) 0.3 % 03/18 Nucleated RBC Absolute Count (auto) 0.04 K/uL (0-0) H 03/09 0 Neutrophils (%) (Auto) 85.0 % 03/18/22 Lymphocytes (%) (Auto) 6.4 % 03/18/22 Monocytes # (Auto) 0.93 K/uL (0.24-0.82) H 03/18/22 Eosinophils # (Auto) 0.00 K/uL (0-0.50) 03/18/22 Immature Granulocyte % (Auto) 0.7 % 03/18/22 Neutrophils # (Auto) 10.24 K/uL (1.4-6.5) H 03/18/22 Lymphocytes # (Auto) 0.77 K/uL (1.2-3.4) L 03/18/22 Monocytes # (Auto) 0.93 K/uL (0.24-0.82) H 03/18/22 Eosinophils # (Auto) 0.00 K/uL (0-0.50) 03/18/22 Basophils # (Auto) 0.03 K/uL (0-0.2) 03/18/22 Immature Granulocyte # (Auto) 0.09 K/uL (0.00-0.02) H 03/18 Hypochromasia Present 03/18/22 Anisocytosis Present 03/18/22 Target Cells 1+ 03/18/22 Na 130 mmol/L (136-145) L 03/18/22 K 4.8 mmol/L (3.5-5.1) 03/18/22 Cl 102 mmol/L (98-107) 03/18/22 CO2 20 mmol/L (21-32) L 03/18/22 Anion Gap 8 (3-11) 03/18/22 BUN 14 mg/dl (6-23) 03/18/22 Creatinine 1.05 mg/dl (0.6-1.4) 03/18/22 Estimated GFR ( Amer) 98.9 ml/min 03/18/22 Estimated GFR (Non-Af Amer) 85.3 ml/min 03/18/22 BUN/Creatinine Ratio 13.3 (10-20) 03/18/22 Glu 302 mg/dl (70-99(Fasting)) H* 03/18/22 Ca 7.4 mg/dl (8.5-10.1) L 03/18/22 Phosphorus Level 3.1 mg/dl (2.5-4.9) 03/18/22 Total Bilirubin 10.7 mg/dl (0.2-1.0) H 03/18/22 Direct Bilirubin 4.9 mg/dl (0-0.2) H 03/18/22 AST 221 U/L (13-39) H 03/18/22 ALT 47 U/L (7-52) 03/18/22 Alkaline Phosphatase 115 U/L (34-104) H 03/18/22 TP 7.8 gm/dl (6.0-8.3) 03/18/22 Albumin 2.0 gm/dl (3.4-5.0) L 03/18/22 Globulin 5.8 gm/dl (2.5-4.0) H 03/18/22 Albumin/Globulin Ratio 0.3 (0.9-2) L 03/18/22 Mg 1.6 mg/dl (1.7-2.4) L 03/18/22 08:28 Calcium Level 7.4 mg/dl (8.5-10.1) L 03/18/22 08:28 Prothromb Time International Ratio 1.8 (0.9-1.1) H 03/18/22 08 :27 Diagnostic Findings (Past 24 Hours) Cervical Spine CT 03/17/22 09:06 CT cervical spine wo con CLINICAL HISTORY: found down bathroom alcoholic ams TECHNIQUE: Multidetector row helical CT of the cervical spine was performed without administration of intravenous contrast. Coronal and sagittal reformations were obtained. Automated dose lowering techniques and/or adjustment according to patient size were utilized for this exam. Comparison: None available at the time of this dictation. FINDINGS: No acute fractures or subluxations are identified. Degenerative changes are seen in the visualized spine. The alignment is normal. Soft tissues are unremarkable. IMPRESSION: Degenerative changes without evidence of acute bony injury. ACT 112: Negative or not required by law. Electronically signed by: Jacques Bailey M.D. 03/17/2022 10:[address] 03/17/22 09:06 CT head/brain wo con CLINICAL HISTORY: 46 years-old Male with found down bathroom alcoholic ams. Acute head injury TECHNIQUE: Multiple axial CT images of the head were obtained without contrast. A dose lowering technique was utilized adhering to the principles of ALARA. COMPARISON: CT cervical spine of same day FINDINGS: No acute intracranial hemorrhage, midline shift, intracranial mass, hydrocephalus, territorial ischemia or abnormal extra-axial collection. The calvarium is intact. Polypoid mucosal thickening of the left maxillary sinus. The mastoid air cells are clear. Small left parietal scalp contusion. IMPRESSION: 1. No acute intracranial abnormality or calvarial fracture. 2. Small left parietal scalp contusion. ACT 112: Negative or not required by law. The above report was generated using voice recognition software. It may contain grammatical, syntax or spelling errors. Electronically signed by: Surinder Escobar M.D. 03/17/2022 10:32 AM Abdomen/Pelvis CT 03/17/22 10:03 CT abd pelvis wo con CLINICAL HISTORY: found down alcoholic TECHNIQUE: Helical axial images of the abdomen and pelvis were obtained. Automated dose lowering techniques and/or adjustment according to patient size were utilized for this exam. This exam was performed without intravenous contrast. CT DOSE: 3202.34 mGy.cm COMPARISON: None available at the time of this dictation. FINDINGS: Lower chest: No acute abnormality Liver: Hepatic steatosis is noted. Gallbladder and biliary tree: Patient is status post cholecystectomy. No intra- or extrahepatic biliary ductal dilation. Pancreas: Pancreas is diminutive for age. No definite peripancreatic stranding is seen against a background of ascites. Spleen: Unremarkable. Adrenals: Unremarkable. Kidneys and ureters: Unremarkable. Bladder: Limited evaluation due to underdistention. Reproductive organs: Unremarkable. Bowel: Prominent stool burden is noted in the rectum. The appendix is unremarkable. Postsurgical changes of gastric bypass. Lymph nodes Retroperitoneal: Unremarkable. Pelvic: Unremarkable. Mesenteric: Unremarkable. Peritoneum: Mild ascites is seen. Vessels: Unremarkable. Abdominal wall: Mild body wall edema is seen. Bones: Degenerative changes in the visualized spine. IMPRESSION: Hepatic steatosis and possible steatohepatitis in this patient with history of alcoholism. There is mild ascites. This is new from prior exam and may represent worsening liver disease. Additional findings as above. ACT 112: Negative or not required by law. Electronically signed by: Jacques Bailey M.D. 03/17/2022 10:33 AM I & O Totals 24 Hours 03/17/22 03/18/22 03/19/22 06:59 06:59 06:59 Intake Total 5253.828 / 5253.828 Output Total 901 / 901 50 / 50 Balance 4352.828 / 4352.828 -50 / -50 Cumulative 03/17/22 08:39 thru 03/18/22 07:51 Intake Total 5253.828 Output Total 951 Balance 4302.828 RT Ventilator Mngmt (Last Documented) Ventilator Ordered Settings Respiratory Rate 14 03/18/22 07:15 Ventilator - PT Measurements Respiratory Rate 14 Coding Level of Care Code Critical Care 1st 30-74 mins Diagnoses Acute liver failure K72.00 Hepatic encephalopathy K72.90 Acute blood loss anemia (ABLA) D62 GI bleed K92.2 GI bleed type/associated pathology: unspecified gastrointestinal hemorrhage type Supratherapeutic INR R79.1 TANVIR (acute kidney injury) N17.9 Acute alcohol intoxication F10.929 Alcoholic hepatitis K70.11 Ascites presence: with ascites Time Spent (min) 45 (1) GI bleed GI bleed type/associated pathology: unspecified gastrointestinal hemorrhage type Qualified Code(s): K92.2 - Gastrointestinal hemorrhage, unspecified (2) Alcoholic hepatitis Ascites presence: with ascites Qualified Code(s): K70.11 - Alcoholic hepatitis with ascites
[2022-03-18 08:53] LABS: Hematocrit (blood only) 21.8 % (40.1-51.0); Hemoglobin 7.7 g/dl (14.0-18.0); Mean Corpuscular Hemoglobin 32.9 pg (25.0-34.0); Mean Corpuscular Hgb Conc 35.3 g/dL (32.0-36.0); Mean Corpuscular Volume 93.2 fL (80.0-100.0); Mean Platelet Volume 10.4 fL (9.4-12.4); Nucleated RBC # (auto) 0.04 K/uL (0-0); Nucleated RBC % (auto) 0.3 %; Platelet Count 67 K/uL (130-400); RDW Coefficient of Variation 21.3 % (11.5-14.5); RDW Standard Deviation 61.9 fL (36.4-46.3); Red Blood Count 2.34 M/uL (4.63-6.08); White Blood Count 12.06 K/ul (4.8-10.8)
[2022-03-18 08:57] LABS: INR 1.8 (0.9-1.1); Prothrombin Time 18.5 Seconds (9.0-12.0)
[2022-03-18 09:03] LABS: Fibrinogen 166 mg/dl (184-400)
[2022-03-18 09:17] LABS: Albumin Globulin Ratio 0.3 (0.9-2); BUN Creatinine Ratio 13.3 (10-20); Bilirubin Direct 4.9 mg/dl (0-0.2); Bilirubin,Total 10.7 mg/dl (0.2-1.0); Calcium 7.4 mg/dl (8.5-10.1); Creatinine Clr Calc Pharmacy 130.7 ml/min; Est GFR (African American) 98.9 ml/min; Est GFR (Non-African American) 85.3 ml/min; Globulin 5.8 gm/dl (2.5-4.0); Magnesium 1.6 mg/dl (1.7-2.4); Phosphorus 3.1 mg/dl (2.5-4.9); Potassium 4.8 mmol/L (3.5-5.1); Total Protein 7.8 gm/dl (6.0-8.3)
[2022-03-18 09:47] LABS: Anisocytosis Present; Basophils # (auto) 0.03 K/uL (0-0.2); Basophils % (auto) 0.2 %; Immature Granulocytes # (auto) 0.09 K/uL (0.00-0.02); Immature Granulocytes % (auto) 0.7 %; Lymphocytes # (auto) 0.77 K/uL (1.2-3.4); Lymphocytes % (auto) 6.4 %; Monocytes # (auto) 0.93 K/uL (0.24-0.82); Monocytes % (auto) 7.7 %; Neutrophils # (auto) 10.24 K/uL (1.4-6.5); Target Cells 1+
[2022-03-18] MEDS: methylPREDNISolone 30 MG in SYRINGE 0 ML IV SCH (09:53)
[2022-03-18] MEDS: FOLIC ACID 1 MG in SYRINGE 9.8 ML IV SCH (09:53)
[2022-03-18] MEDS: THIAMINE HCL 100 MG in SYRINGE 9 ML IV SCH ×2 (09:53→20:05)
[2022-03-18] MEDS ORDERED: CARBOHYDRATES FOR HYPOGLYCEMIA PO PRN (10:15)
[2022-03-18] MEDS ORDERED: DEXTROSE 50% 50 ML SYRINGE IV PRN (10:15)
[2022-03-18] MEDS ORDERED: GLUCOSE 10 TAB/TUBE PO PRN (10:15)
[2022-03-18] MEDS ORDERED: GLUCAGON FOR INJ 1 MG VIAL IM PRN (10:15)
[2022-03-18] MEDS ORDERED: GLUCOSE 40% GEL 15 GM TUBE PO PRN (10:15)
--- NOTE | 2022-03-18 10:15 | Gastrointestinal Consultation ---
Date of Consultation March 18, 2022 Assessment & Plan (1) Acute liver failure: Patient is a 46 year old male with a PMHx significant for alcohol abuse that he admits is 2 large glasses of vodka a day, HTN, previous gastric bypass surgery in 2015, previous bowel resection in 2019 who was brought to the ED via EMS with changes in mental status and recent fall. ammonia on admission was 99. He had hgb of 6.7 upon admission and there was question of GI bleeding but no obvious bleeding noticed and hgb has improved s/p 1 unti prbc. Likely anemia is multifactorial and possibly even due to hematoma as he is bruised over abdomen. MELD on admission was 30. - discussed case with Dr. Jenkins who advised on plan. - will hold off on lactulose given complaints of loose stools as long as he is having 2-3 bowel movements daily. will add xifaxan 550mg bid and zinc sulfate 220mg daily. - would advise ETOH cessation and rehab for patient. - Continue octreotide, ceftriaxone, and methylprednisolone. - will continue to monitor patient. Supervising Physician Co-Signing Physician Notes agree wth plan as documented by Bashir Ford, PAC would check Lille score on day 7 to determine efficacy of steroids trend H/H, will monitor at this time History of Present Illness Reason for Consultation: Acute Liver failure and possible GIB Requesting Physician: Rios Hewitt PA-C Attending Physician: Fanny Ortiz MD History of Present Illness Patient is a 46 year old male with a PMHx significant for alcohol abuse that he admits is 2 large glasses of vodka a day, HTN, previous gastric bypass surgery in 2015, previous bowel resection in 2019 who was brought to the ED via EMS with changes in mental status and recent fall. he admits that he drinks two large glasses of vodka a day. He is still confused today but per nursing this is better than he was yesterday. ammonia 99. Per nursing, no signs of gi bleeding. hgb was 6.7 yesterday but he was given 1 unit prbc and counts improved to 7.2 and then 7.7. Patient has been having loose stools that are green and seedy in nature. no melena or bright red blood reported. Patient denies any nausea, vomiting, heartburn, dysphagia, abdominal pain. He tells me he was evaluated by a GI office in [place] but he admits he is not sure of the details. Allergies Allergy/AdvReac Type Severity Reaction Status Date / Time Penicillins Allergy Mild Hives Verified 03/17/22 09:54 Home Medications Medication Instructions Recorded Confirmed Type amlodipine 5 mg tablet 5 mg PO DAILY 03/17/22 03/17/22 History cholecalciferol (vitamin D3) 50 0 mcg PO DAILY 03/17/22 03/17/22 History mcg (2,000 unit) capsule (Vitamin D3) cyanocobalamin (vitamin B-12) 0 mcg PO DAILY 03/17/22 03/17/22 History 1,000 mcg tablet (Vitamin B-12) hydrochlorothiazide 12.5 mg tablet 12.5 mg PO DAILY 03/17/22 03/17/22 History Patient History Medical History Alcohol abuse Elevated liver enzymes Hypertension No pertinent family history No pertinent past medical history Surgical History No pertinent past surgical history Social History Smoking Status: Never smoker Second Hand Exposure: No; Hx Alcohol Use: Yes Alcohol type: hard liquor Hx Substance Use: Yes Last Used Substance: Unknown Preferred Language: Sami Communication Ability: Effective Trench Trimmer Fine Required: No Beliefs That Will Affect Care: None marital status: Single Current Living Situation: Alone Feels Safe at Home: Yes Assistive Devices: None Review of Systems Review of Systems: Unobtainable due to cognitive status Physical Exam Constitutional: WD/WN, vitals as above Eyes: + anicteric sclerae and PERRL ENMT: external ear and nose normal, oropharynx normal Respiratory: normal respiratory effort, lungs clear to auscultation Cardiovascular: RRR, no murmur, no edema Gastrointestinal (Abdomen): mild distention, bruising over the Left side of abdomen and flank. normal bowel sounds. tender over brusing. mild ascites. Skin: no rashes, warm and dry Psychiatric: confused and slow to answer questions. Results & Data ([facility]) Vital Signs (Past 12 Hours) Vital Signs Temp Pulse Pulse Resp BP BP Pulse Ox 03/18/22 07:56 03/18/22 07:49 37.2 C 03/18/22 07:35 117 H 03/18/22 07:15 124 H 14 99 03/18/22 07:15 138/89 03/18/22 07:00 122 H 20 96 03/18/22 07:00 108/76 03/18/22 06:00 114 H 21 100/80 98 03/18/22 05:00 144 H 21 149/116 H 98 03/18/22 04:00 127 H 16 159/96 H 95 03/18/22 05:48 37.2 C 113 H 14 141/89 H 98 03/18/22 05:13 37.2 C 116 H 27 H 123/73 94 03/18/22 04:48 37.2 C 114 H 14 128/91 98 03/18/22 04:33 37.2 C 117 H 21 134/89 99 03/18/22 04:18 37.2 C 130 H 17 157/104 H 99 03/18/22 04:03 37.2 C 126 H 16 159/96 H 94 03/18/22 03:47 37.2 C 137 H 20 149/91 H 100 03/18/22 03:00 113 H 14 128/83 98 03/18/22 02:00 116 H 13 153/88 H 03/18/22 03:18 37.2 C 112 H 14 128/83 97 03/18/22 02:48 37.2 C 120 H 17 133/71 99 03/18/22 02:33 37.2 C 75 13 131/78 96 03/18/22 02:18 37.2 C 117 H 11 L 147/110 H 99 03/18/22 01:00 117 H 15 131/75 94 03/18/22 00:00 116 H 13 163/100 H 99 03/18/22 02:03 37.2 C 120 H 17 153/88 H 100 03/18/22 01:32 37.4 C 120 H 15 139/82 99 03/18/22 01:48 37.2 C 113 H 12 162/85 H 98 03/18/22 00:16 37.2 C 112 H 12 152/87 H 99 03/18/22 00:12 37.1 C 114 H 17 152/87 H 99 03/17/22 23:57 37.1 C 108 H 12 163/100 H 98 03/17/22 23:41 37.1 C 116 H 17 150/94 H 99 03/18/22 00:25 37.2 C 123 H 14 153/95 H 98 03/17/22 23:41 37.1 C 113 H 17 159/99 H 100 03/17/22 23:35 37.2 C 112 H 12 147/102 H 99 03/17/22 23:34 37.2 C 115 H 12 147/102 H 99 03/17/22 23:26 37.2 C 120 H 14 147/102 H 99 03/17/22 23:11 37.2 C 120 H 13 147/102 H 100 03/17/22 23:20 105 H 03/17/22 23:00 109 H 14 155/94 H 98 03/17/22 22:49 37.2 C 113 H 12 157/95 H 99 03/17/22 22:47 37.2 C 116 H 13 157/95 H 98 03/17/22 22:41 37.0 C 114 H 13 149/91 H 100 03/17/22 22:35 37.0 C 146 H 14 146/94 H 100 03/17/22 22:20 03/17/22 22:20 37.4 C 119 H 14 146/81 H 99 03/17/22 23:03 37.2 C 104 H 14 148/90 H 98 03/17/22 22:56 37.2 C 105 H 14 155/94 H 98 03/17/22 22:35 37.2 C 113 H 13 149/91 H 100 O2 Del Method 03/18/22 07:56 Room Air 03/18/22 07:49 03/18/22 07:35 03/18/22 07:15 03/18/22 07:15 03/18/22 07:00 03/18/22 07:00 03/18/22 06:00 03/18/22 05:00 03/18/22 04:00 03/18/22 05:48 03/18/22 05:13 03/18/22 04:48 03/18/22 04:33 03/18/22 04:18 03/18/22 04:03 03/18/22 03:47 03/18/22 03:00 03/18/22 02:00 03/18/22 03:18 03/18/22 02:48 03/18/22 02:33 03/18/22 02:18 03/18/22 01:00 03/18/22 00:00 03/18/22 02:03 03/18/22 01:32 03/18/22 01:48 03/18/22 00:16 03/18/22 00:12 03/17/22 23:57 03/17/22 23:41 03/18/22 00:25 03/17/22 23:41 03/17/22 23:35 03/17/22 23:34 03/17/22 23:26 03/17/22 23:11 03/17/22 23:20 03/17/22 23:00 Room Air 03/17/22 22:49 03/17/22 22:47 03/17/22 22:41 03/17/22 22:35 03/17/22 22:20 Room Air 03/17/22 22:20 Room Air 03/17/22 23:03 03/17/22 22:56 03/17/22 22:35 PG Care Time/CCT Total # of Minutes Spent Total Time Spent with Patient: Total time spent is greater than 50% in coordination of care (as documented) at patient's floor/unit and/or counseling patient: Coding Level of Care Code 97679 Inpt Consult Level 4 Diagnoses Acute liver failure K72.00
[2022-03-18] MEDS: cefTRIAXone SODIUM 2000MG/70ML D5W IV SCH (10:38)
[2022-03-18] MEDS: ICU ELECTROLYTE REPLACEMENT PROTOCOL SCH (10:44)
--- NOTE | 2022-03-18 11:23 | Hospitalist Progress Note ---
Date of Service March 18, 2022 Assessment & Plan (1) Acute liver failure: Plan: Patient has an extensive hx of alcohol abuse. Presents on account of altered mental status. Ammonia level elevated, Patient still having liquid bowel movements will hold off on Lactulose Continue Rifaxximin per GI Discriminant factor also elevated, currently on steroids Appreciate GI and critical care Patient continues to drink and is not a candidate for liver transplant (2) Hepatic encephalopathy: Plan: Ammonia was 99 Patient somewhat lucid, although his response is delayed Will hold off Lactulose, patient has been having BM 2-3 times (3) Acute blood loss anemia (ABLA): Plan: No evidence of GI bleed, although could be due to the hematoma He received blood products Monitor h and h (4) Alcoholic hepatitis: Plan: Elevated Discriminant factor as above Continue Steroids (5) Supratherapeutic INR: Plan: Received FFP and cry recheck INR (6) Thrombocytopenia: Plan: Most likley due to chronic alcohol abuse Monitor (7) Hypertension: Plan: BP 136/84 today continue home meds (8) Hyponatremia: Plan: Likely due to beer potomania continue to monitor (9) Alcoholic intoxication: Plan: Consumed about 2-3 bottles of vodka will monitor for withdrawal Plan continue hospitalization Admission and Anticipated Discharge Date Admission Date: March 17, 2022 Subjective patient seen and examined, complains of mild abdominal pain Review of Systems Review of Systems: All systems reviewed are negative, apart from the ones contained in the history. Physical Exam Physical Exam: The patient is awake, alert and oriented 3, well developed and well nourished, normocephalic and atraumatic, lying in bed and in no acute distress. HEENT--PERRL, EOMI, mucous membranes and oropharynx mildly dry Neck--supple. No JVD. No bruits. Thyroid normal, trachea midline, no adenopathy. Heart--normal S1 and S2. No murmurs, rubs or gallops. Lungs--clear bilaterally, no respiratory distress, no accessory muscle use. Abdomen--distended Extremities--no cyanosis or clubbing. leg edema Dermatologic--normal skin turgor, normal color, no abnormal lymph nodes, no rash. Neurologic--cranial nerves II through XII grossly intact. Rheumatologic--normal range of motion. Psychiatric--normal affect. Results & Data Results & Data ([facility]) Vital Signs (Past 12 Hours) Vital Signs Temp Pulse Resp BP Pulse Ox Pulse Ox O2 Del Method 03/18/22 11:00 117 H 18 03/18/22 10:51 136/84 03/18/22 10:51 120 H 16 03/18/22 10:45 118 H 16 03/18/22 10:45 132/97 03/18/22 10:30 122 H 25 H 03/18/22 10:30 141/89 H 03/18/22 10:16 118/91 03/18/22 10:16 123 H 14 03/18/22 10:15 123 H 14 03/18/22 10:00 123 H 22 03/18/22 09:46 146 H 19 03/18/22 09:46 81/30 L 03/18/22 09:45 143 H 15 03/18/22 09:31 137/92 03/18/22 09:31 119 H 21 03/18/22 09:30 122 H 14 03/18/22 09:15 117 H 13 03/18/22 09:00 123 H 26 H 03/18/22 08:45 120 H 17 03/18/22 08:30 116 H 19 03/18/22 08:15 128 H 18 03/18/22 08:15 158/92 H 03/18/22 08:00 116 H 15 03/18/22 08:00 145/83 H 03/18/22 07:46 123/88 03/18/22 07:46 121 H 18 03/18/22 07:45 120 H 16 03/18/22 07:30 113 H 17 98 03/18/22 07:30 124/85 03/18/22 09:05 97 03/18/22 10:38 99.6 F 122 H 22 136/84 98 03/18/22 10:48 114 H 21 100/80 98 03/18/22 10:22 98.9 F 118 H 17 118/91 98 03/18/22 07:56 Room Air 03/18/22 07:49 98.9 F 03/18/22 07:35 117 H 03/18/22 07:15 124 H 14 99 03/18/22 07:15 138/89 03/18/22 07:00 122 H 20 96 03/18/22 07:00 108/76 03/18/22 06:00 114 H 21 100/80 98 03/18/22 05:00 144 H 21 149/116 H 98 03/18/22 04:00 127 H 16 159/96 H 95 03/18/22 05:48 99.0 F 113 H 14 141/89 H 98 03/18/22 05:13 99.0 F 116 H 27 H 123/73 94 03/18/22 04:48 99.0 F 114 H 14 128/91 98 03/18/22 04:33 99.0 F 117 H 21 134/89 99 03/18/22 04:18 99.0 F 130 H 17 157/104 H 99 03/18/22 04:03 99.0 F 126 H 16 159/96 H 94 03/18/22 03:47 99.0 F 137 H 20 149/91 H 100 03/18/22 03:00 113 H 14 128/83 98 03/18/22 02:00 116 H 13 153/88 H 03/18/22 03:18 99.0 F 112 H 14 128/83 97 03/18/22 02:48 99.0 F 120 H 17 133/71 99 03/18/22 02:33 99.0 F 75 13 131/78 96 03/18/22 02:18 99.0 F 117 H 11 L 147/110 H 99 03/18/22 01:00 117 H 15 131/75 94 03/18/22 00:00 116 H 13 163/100 H 99 03/18/22 02:03 99.0 F 120 H 17 153/88 H 100 03/18/22 01:32 99.3 F 120 H 15 139/82 99 03/18/22 01:48 99.0 F 113 H 12 162/85 H 98 03/18/22 00:16 99.0 F 112 H 12 152/87 H 99 03/18/22 00:12 98.8 F 114 H 17 152/87 H 99 03/17/22 23:57 98.8 F 108 H 12 163/100 H 98 03/17/22 23:41 98.8 F 116 H 17 150/94 H 99 03/18/22 00:25 99.0 F 123 H 14 153/95 H 98 03/17/22 23:41 98.8 F 113 H 17 159/99 H 100 03/17/22 23:35 99.0 F 112 H 12 147/102 H 99 03/17/22 23:34 99.0 F 115 H 12 147/102 H 99 03/17/22 23:26 99.0 F 120 H 14 147/102 H 99 03/17/22 23:20 105 H O2 Del Method 03/18/22 11:00 03/18/22 10:51 03/18/22 10:51 03/18/22 10:45 03/18/22 10:45 03/18/22 10:30 03/18/22 10:30 03/18/22 10:16 03/18/22 10:16 03/18/22 10:15 03/18/22 10:00 03/18/22 09:46 03/18/22 09:46 03/18/22 09:45 03/18/22 09:31 03/18/22 09:31 03/18/22 09:30 03/18/22 09:15 03/18/22 09:00 03/18/22 08:45 03/18/22 08:30 03/18/22 08:15 03/18/22 08:15 03/18/22 08:00 03/18/22 08:00 03/18/22 07:46 03/18/22 07:46 03/18/22 07:45 03/18/22 07:30 03/18/22 07:30 03/18/22 09:05 Room Air 03/18/22 10:38 03/18/22 10:48 03/18/22 10:22 03/18/22 07:56 03/18/22 07:49 03/18/22 07:35 03/18/22 07:15 03/18/22 07:15 03/18/22 07:00 03/18/22 07:00 03/18/22 06:00 03/18/22 05:00 03/18/22 04:00 03/18/22 05:48 03/18/22 05:13 03/18/22 04:48 03/18/22 04:33 03/18/22 04:18 03/18/22 04:03 03/18/22 03:47 03/18/22 03:00 03/18/22 02:00 03/18/22 03:18 03/18/22 02:48 03/18/22 02:33 03/18/22 02:18 03/18/22 01:00 03/18/22 00:00 03/18/22 02:03 03/18/22 01:32 03/18/22 01:48 03/18/22 00:16 03/18/22 00:12 03/17/22 23:57 03/17/22 23:41 03/18/22 00:25 03/17/22 23:41 03/17/22 23:35 03/17/22 23:34 03/17/22 23:26 03/17/22 23:20 PG Care Time/CCT Total # of Minutes Spent Total Time Spent with Patient: Total time spent is greater than 50% in coordination of care (as documented) at patient's floor/unit and/or counseling patient: Coding Level of Care Code 70120 Subseq Hosp Care Lvl 2 Diagnoses Acute liver failure K72.00 Hepatic encephalopathy K72.90 Acute blood loss anemia (ABLA) D62 Alcoholic hepatitis K70.11 Ascites presence: with ascites Supratherapeutic INR R79.1 Thrombocytopenia D69.6 Hypertension I10 Hypertension type: unspecified Hyponatremia E87.1 Alcoholic intoxication F10.929 Time Spent (min) 35 (1) Alcoholic hepatitis Ascites presence: with ascites Qualified Code(s): K70.11 - Alcoholic hepatitis with ascites (2) Hypertension Hypertension type: unspecified Qualified Code(s): I10 - Essential (primary) hypertension
[2022-03-18] MEDS ORDERED: cefTRIAXone SODIUM 2,000 MG in DEXTROSE 5% 50 ML IV SCH (12:00)
[2022-03-18] MEDS: rifAXIMin 550 MG TABLET PO SCH ×2 (12:03→20:04)
[2022-03-18] MEDS: ZINC SULFATE 220 MG CAPSULE PO SCH (12:04)
[2022-03-18] MEDS: INSULIN ASPART PER UNIT SC SCH ×3 (12:15→23:43)
[2022-03-18] MEDS: MAGNESIUM SULFATE / D5W 1 GM/100 ML BAG IV SCH ×4 (12:19→18:17)
[2022-03-18 22:53] LABS: Hematocrit (blood only) 20.5 % (40.1-51.0); Hemoglobin 7.2 g/dl (14.0-18.0)
[2022-03-18 23:29] LABS: BUN Creatinine Ratio 13.2 (10-20); Calcium 7.8 mg/dl (8.5-10.1); Creatinine Clr Calc Pharmacy 120.4 ml/min; Est GFR (African American) 89.5 ml/min; Est GFR (Non-African American) 77.2 ml/min; Magnesium 2.1 mg/dl (1.7-2.4); Phosphorus 3.1 mg/dl (2.5-4.9); Potassium 4.4 mmol/L (3.5-5.1)
[2022-03-19] MEDS ORDERED: OPTIRAY 320 125ml IV ONE (00:09)
[2022-03-19] MEDS: PANTOprazole 40 MG in DEXTROSE 5% 100 ML IV SCH ×2 (02:14→07:04)
[2022-03-19 04:43] LABS: Basophils # (auto) 0.01 K/uL (0-0.2); Basophils % (auto) 0.1 %; Hematocrit (blood only) 21.3 % (40.1-51.0); Hemoglobin 7.5 g/dl (14.0-18.0); Immature Granulocytes # (auto) 0.11 K/uL (0.00-0.02); Immature Granulocytes % (auto) 0.9 %; Lymphocytes # (auto) 0.79 K/uL (1.2-3.4); Lymphocytes % (auto) 6.3 %; Mean Corpuscular Hemoglobin 33.3 pg (25.0-34.0); Mean Corpuscular Hgb Conc 35.2 g/dL (32.0-36.0); Mean Corpuscular Volume 94.7 fL (80.0-100.0); Monocytes # (auto) 0.98 K/uL (0.24-0.82); Monocytes % (auto) 7.8 %; Neutrophils # (auto) 10.68 K/uL (1.4-6.5); Neutrophils % (auto) 84.9 %; Nucleated RBC # (auto) 0.15 K/uL (0-0); Nucleated RBC % (auto) 1.2 %; Platelet Count 60 K/uL (130-400); RDW Coefficient of Variation 19.8 % (11.5-14.5); RDW Standard Deviation 56.2 fL (36.4-46.3); Red Blood Count 2.25 M/uL (4.63-6.08); White Blood Count 12.57 K/ul (4.8-10.8)
[2022-03-19 04:56] LABS: INR 1.8 (0.9-1.1); Prothrombin Time 18.2 Seconds (9.0-12.0)
[2022-03-19 05:05] LABS: Albumin Globulin Ratio 0.4 (0.9-2); Albumin Level 1.9 gm/dl (3.4-5.0); BUN Creatinine Ratio 12.7 (10-20); Bilirubin Direct 5.1 mg/dl (0-0.2); Bilirubin,Total 12.1 mg/dl (0.2-1.0); Calcium 7.7 mg/dl (8.5-10.1); Creatinine Clr Calc Pharmacy 124.7 ml/min; Est GFR (African American) 93.5 ml/min; Est GFR (Non-African American) 80.6 ml/min; Globulin 5.2 gm/dl (2.5-4.0); Magnesium 2.1 mg/dl (1.7-2.4); Phosphorus 3.1 mg/dl (2.5-4.9); Potassium 4.2 mmol/L (3.5-5.1); Total Protein 7.1 gm/dl (6.0-8.3)
[2022-03-19] MEDS: ICU ELECTROLYTE REPLACEMENT PROTOCOL SCH ×3 (05:13→19:30)
[2022-03-19] MEDS: INSULIN ASPART PER UNIT SC SCH ×3 (05:17→17:57)
[2022-03-19 06:03] LABS: Polychromasia 1+; Target Cells 1+; Toxic Vacuolation 1+
--- NOTE | 2022-03-19 07:05 | CT Scan Report ---
CT ANGIOGRAPHY OF THE ABDOMEN AND PELVIS CLINICAL HISTORY: persistent anemia, large hematoma to left flank COMPARISON STUDY: CT of the abdomen and pelvis March 17, 2022. TECHNIQUE: Helical axial images of the abdomen and pelvis were obtained during arterial phase followi ng intravenous injection 117 cc Optiray 320 IV. Sagittal and coronal reconstructions were viewed as w ell as maximal intensity projections on an independent 3-D workstation. Automated exposure control wa s utilized for the study. A dose lowering technique was utilized adhering to the principles of ALARA . FINDINGS: This exam is compromised by artifact from body wall contacting the gantry. Diffuse anasarca is noted. Note is made of a partially visualized right infrascapular intramuscular hematoma that comfort sures at least 15.1 x 6.1 cm. There are multiple left flank subcutaneous hematomas. The largest measu res 9.2 x 7.5 cm. Sensitivity for detection of active extravasation is diminished on this exam. In ad dition, there are partially visualized intramuscular hemorrhage within the right gluteus katarzyna. The re is a 1.3 cm indeterminate soft tissue nodule within the right ischioanal space. Sanchez balloon with in the bladder is noted. No pneumatosis, free air or portal venous gas is present. Severe hepatic amauri atosis is noted. Nodularity liver surface is noted. This suggests cirrhosis. No hepatic lesions are n oted. Mild pancreatic ductal dilatation and pancreatic glandular atrophy is similar to CT of February 02, 2022. Mild dilatation of the common bile duct is also unchanged and likely related to cholecystectom y. Small to moderate abdominal and pelvic ascites is present. No hemoperitoneum is present. There is no hydronephrosis. Spleen, adrenal glands and pancreas are unremarkable. A gastric bypass is noted. T here is diffuse colonic wall thickening. Caliber of the abdominal aorta is normal. Major branch vesse ls are patent. No pneumatosis, free air or portal venous gas is present. Small collaterals are noted. IMPRESSION: 1. Large partially visualized right infrascapular intramuscular hematoma which measures at least 15.1 x 6.1 cm. Multiple left flank hematomas as well as partially visualized intramuscular hemorrhage wit hin the right gluteus katarzyna. Decreased sensitivity for detection of active extravasation on this ex am but none identified. These findings will be called/faxed to the ordering provider at time of dicta tion. 2. Severe hepatic steatosis. Cirrhosis. Anasarca. Small to moderate abdominal and pelvic ascites. Sma ll collaterals suggestive of portal hypertension. 3. Diffuse colonic wall thickening. This may be related to portal hypertension however a nonspecific colitis could appear similar. 4. No bowel obstruction status post Jas-en-Y gastric bypass. ACT 112: Negative or not required by law. Electronically signed by: Derek Stewart M.D. 03/19/2022 7:04 AM
[2022-03-19] MEDS ORDERED: SODIUM CHLORIDE 0.9% 250 ML IV PRN ×2 (07:21→15:58)
[2022-03-19] MEDS ORDERED: STAT IV STA (07:21)
[2022-03-19] MEDS ORDERED: CALCIUM GLUCONATE 10% 2,000 MG in DEXTROSE 5% 50 ML IV ONE (07:35)
--- NOTE | 2022-03-19 07:46 | Critical Care Progress Note ---
Date of Service March 19, 2022 Assessment & Plan (1) Acute liver failure: (2) Hepatic encephalopathy: (3) Acute blood loss anemia (ABLA): (4) GI bleed: (5) Supratherapeutic INR: (6) Acute alcohol intoxication: (7) Alcoholic hepatitis: Plan Reason Critically Ill: Santiago is a 46 year old male w/ alcoholic intoxication, altered levels of consciousness, as well as blood loss anemia requiring multiple transfusions. Neuro AMS: -Patient arrived to ED w/ alcohol level 190, ammonia 99. -May take up to 72 hours for alcohol to metabolize. -Most likely combination of intoxication with elevated ammonia. -On Thiamine 100mg PO BID. -Per GI, added rifaximin and zinc sulfate daily. -Added on lactulose 20mg TID. Acute Alcohol Intoxication: -Alcohol level 190 on admission, has been at least 72hrs since last drink, may start to see some withdrawal. AWSS protocol in place. Cardiac Sinus tachycardia: -May be related to low hemoglobin level. Ordered TTE to evaluate for ventricular dilation in the setting of chronic alcohol abuse. Continue to monitor on telemetry. Respiratory No history of pulmonary disease, saturating well on room air. GI Alcoholic hepatitis/Cirrhosis: -Maddrey DF of 64, MELD score of 30 on arrival - started on methylprednisolone 30mg IV daily due to inability for PO intake. -CT w/ hepatic steatosis, mild ascites, new from prior exam. -CTA w/ severe hepatic steatosis, cirrhosis, anascara, small to mod A&P ascites, small collaterals suggestive portal HTN. -Started on Rocephin, octreotide, protonix on admission. -Started lactulose 20mg TID, furosemide 40mg qAM, aldactone 100mg qAM. -GI consulted - continue current regimen, continue to monitor medically. Can D/C octreotide, change protonix drip to protonix 40mg daily. -Recheck Lille score at day 7 for efficacy of steroids. Clear liquid diet, progress as tolerated. Renal/Electrolytes TANVIR: -creatinine 1.30 on admission, decreased urine output during stay. ~50- 60ml/hr overnight, creatinine down to 1.10. -May be due to hepatorenal syndrome. -Continue to trend BMP, monitor urine output. Hyopnatremia: -Na has been around 130, albumin low at around 2.0; may be secondary to chronic alcohol abuse. Continue to trend. Strict I&O's Endo No history of diabetes or thyroid disease. ICU hyperglycemia protocol Heme Blood loss anemia: -Patient has received 6U PRBCs during stay, hgb has stayed around 7.2-7.7 post transfusions. -CTA A/P w/ large partially visualized IM hematoma at R infrascapular region 15.1x6.1cm, multiple L flank hematomas as well as R gluteus katarzyna; no extravasation seen. -Hgb this morning 7.6 post 1unit overnight. -Continue to trend H&H q8h. -Will obtain H&H, PT/INR, fibrinogen after 2 units FFP. If stable values, stable for downgrade. ID Started on CTX for concern for variceal bleeding. No concern for GI bleed at this time, D/C CTX. Patient remains afebrile, WBC 12.57. No other concern for infectious process at this time. Lines/IV Access Peripheral IVs. DVT Prophylaxis SCDs, holding off on chemical prophylaxis due to coagulopathy. F/E/N/GI: Clear liquid, progress as tolerated; ICU electrolyte protocol in place. Dispo: ICU, if H&H stable, stable for downgrade. Admission and Anticipated Discharge Date Admission Date: March 17, 2022 Supervising Physician Co-Signing Physician Notes Patient seen and examined. EMR reviewed. Discussed with critical care KEVIN overnight and on multidisciplinary rounds as well as with family practice resident. Agree with assessment plan as noted. Patient's sensorium is cleared as his alcohol has metabolized. He is alert and oriented. Continue thiamine and folate. Continue as needed benzodiazepines to prevent alcohol withdrawal. He is meeting with social work to discuss alcohol abstinence programs. Patient has evidence of spontaneous soft tissue hematoma formation which is likely the source of his bleeding. Continue to work on correcting coagulopathy with target fibrinogen greater than 200, INR less than 1.5, platelet count bet ween 60 and 70,000. If he continues to bleed, Kcentra or TXA might be considered, acknowledging potential need for Kcentra. If the patient can demonstrate a stable hemoglobin hematocrit, he can likely be transferred to the floor. Will defer to GI whether or not octreotide or Protonix drips need to be continued. Will discontinue Sanchez catheter. PT OT consultations. Out of bed to chair as tolerated. Advance diet. Continue rifaximin and lactulose. Once the patient's hemoglobin hematocrit are stable, will transfer out of the ICU and critical care services will sign off. Subjective Spoke with patient at bedside this morning and he is feeling well. Says he usually gets withdrawal symptoms around day 4 or 5 after last drink and today would zuhair the 4th day. He denies any shortness of breath, chest pain, nausea, headaches, abdominal pain. He doesn't remember much of when he came into the hospital but does remember slipping twice and hitting his head on the second fall right in the middle of the frontal bone. Review of Systems Constitutional: as per Subjective / HPI Physical Exam Constitutional: WD/WN, vitals as above Eyes: scleral icterus bilaterally, PERRL. Respiratory: normal respiratory effort, lungs clear to auscultation Cardiovascular: Rate/Rhythm: regular rhythm and + tachycardic Heart Sounds: normal S1 and normal S2 Gastrointestinal (Abdomen): BS+, soft, mildly distended, non-tender. Neurologic: patellar DTR's 2+ bilat, sensation intact Asterixis in left hand. Psychiatric: A+Ox3, euthymic affect Results & Data Results & Data ([facility]) Vital Signs (Past 12 Hours) Vital Signs Temp Pulse Resp BP Pulse Ox Pulse Ox O2 Del Method 03/19/22 07:00 37.0 C 112 H 28 H 99 03/19/22 07:00 139/80 03/19/22 07:26 103 H 03/19/22 06:00 36.9 C 108 H 19 99 03/19/22 06:00 131/86 03/19/22 05:00 37.0 C 106 H 12 99 03/19/22 05:00 129/76 03/19/22 04:30 37.0 C 98 H 12 100 03/19/22 04:30 152/75 H 03/19/22 04:00 138/79 03/19/22 04:00 37.0 C 100 H 11 L 99 03/19/22 04:00 138/79 03/19/22 03:30 150/84 H 03/19/22 03:30 37.0 C 105 H 16 100 03/19/22 03:00 37.0 C 101 H 14 99 03/19/22 03:00 135/82 03/19/22 02:30 130/80 03/19/22 02:30 37.0 C 105 H 16 99 03/19/22 02:30 130/80 03/19/22 02:08 36.8 C 108 H 12 100 03/19/22 02:08 145/72 H 03/19/22 02:00 36.8 C 112 H 21 95 03/19/22 02:00 141/105 H 03/19/22 01:50 128/81 03/19/22 01:50 36.9 C 113 H 21 98 03/19/22 01:40 144/96 H 03/19/22 01:40 36.9 C 110 H 12 96 03/19/22 01:32 148/78 H 03/19/22 01:32 36.9 C 111 H 14 100 03/19/22 01:20 146/89 H 03/19/22 01:20 36.8 C 109 H 13 90 03/19/22 02:41 37.0 C 101 H 12 130/80 99 03/19/22 01:41 36.9 C 110 H 14 144/96 H 97 03/19/22 01:11 36.8 C 111 H 11 L 100 03/19/22 01:11 150/72 H 03/19/22 01:00 36.8 C 109 H 19 99 03/19/22 01:00 144/74 H 03/19/22 00:50 149/92 H 03/19/22 00:50 36.8 C 109 H 16 97 03/19/22 00:48 36.8 C 109 H 13 96 03/19/22 00:48 163/90 H 03/19/22 00:27 36.9 C 120 H 19 100 03/19/22 00:27 156/100 H 03/19/22 00:26 36.9 C 114 H 12 100 03/18/22 23:00 149/76 H 03/19/22 03:42 37 C 98 H 12 150/84 H 100 03/19/22 01:11 36.8 C 111 H 12 150/72 H 100 03/19/22 00:56 36.8 C 112 H 19 149/92 H 100 03/19/22 00:09 Room Air 03/19/22 00:40 36.9 C 110 H 12 156/110 H 97 03/18/22 23:24 108 H 03/18/22 23:00 36.9 C 109 H 14 149/76 H 99 Room Air 03/18/22 22:00 36.9 C 108 H 15 147/81 H 97 Room Air 03/18/22 21:31 36.9 C 114 H 21 151/74 H 100 Room Air 03/18/22 21:19 36.9 C 107 H 14 147/82 H 97 03/18/22 21:00 36.9 C 104 H 13 152/80 H 98 Room Air 03/18/22 20:31 36.8 C 105 H 13 140/85 97 03/18/22 20:00 Room Air 03/18/22 20:00 96 O2 Del Method 03/19/22 07:00 03/19/22 07:00 03/19/22 07:26 03/19/22 06:00 03/19/22 06:00 03/19/22 05:00 03/19/22 05:00 03/19/22 04:30 03/19/22 04:30 03/19/22 04:00 03/19/22 04:00 03/19/22 04:00 03/19/22 03:30 03/19/22 03:30 03/19/22 03:00 03/19/22 03:00 03/19/22 02:30 03/19/22 02:30 03/19/22 02:30 03/19/22 02:08 03/19/22 02:08 03/19/22 02:00 03/19/22 02:00 03/19/22 01:50 03/19/22 01:50 03/19/22 01:40 03/19/22 01:40 03/19/22 01:32 03/19/22 01:32 03/19/22 01:20 03/19/22 01:20 03/19/22 02:41 03/19/22 01:41 03/19/22 01:11 03/19/22 01:11 03/19/22 01:00 03/19/22 01:00 03/19/22 00:50 03/19/22 00:50 03/19/22 00:48 03/19/22 00:48 03/19/22 00:27 03/19/22 00:27 03/19/22 00:26 03/18/22 23:00 03/19/22 03:42 03/19/22 01:11 03/19/22 00:56 03/19/22 00:09 03/19/22 00:40 03/18/22 23:24 03/18/22 23:00 03/18/22 22:00 03/18/22 21:31 03/18/22 21:19 03/18/22 21:00 03/18/22 20:31 03/18/22 20:00 03/18/22 20:00 Room Air Resident Activity Tracking Resident Involvement: Resident Care Provided Care Provided: Adult Hospital Medicine (1) GI bleed GI bleed type/associated pathology: unspecified gastrointestinal hemorrhage type Qualified Code(s): K92.2 - Gastrointestinal hemorrhage, unspecified (2) Alcoholic hepatitis Ascites presence: with ascites Qualified Code(s): K70.11 - Alcoholic hepatitis with ascites
[2022-03-19 07:54] LABS: Hematocrit (blood only) 21.4 % (40.1-51.0); Hemoglobin 7.6 g/dl (14.0-18.0)
[2022-03-19 08:22] LABS: Fibrinogen 162 mg/dl (184-400); INR 1.7 (0.9-1.1); Partial Thromboplastin Ratio 1.6; Partial Thromboplastin Time 43.7 Seconds (21.0-31.0); Prothrombin Time 17.7 Seconds (9.0-12.0)
[2022-03-19] MEDS: OCTREOTIDE ACETATE 500 MCG in DEXTROSE 5% 100 ML IV SCH (08:29)
[2022-03-19] MEDS: rifAXIMin 550 MG TABLET PO SCH ×2 (08:29→20:37)
[2022-03-19] MEDS: ZINC SULFATE 220 MG CAPSULE PO SCH (08:29)
[2022-03-19] MEDS: THIAMINE HCL 100 MG in SYRINGE 9 ML IV SCH (09:01)
[2022-03-19] MEDS: FOLIC ACID 1 MG in SYRINGE 9.8 ML IV SCH (09:01)
[2022-03-19] MEDS: methylPREDNISolone 30 MG in SYRINGE 0 ML IV SCH (09:01)
--- NOTE | 2022-03-19 09:53 | Gastroenterology Progress Note ---
Date of Service March 19, 2022 Assessment & Plan (1) Acute liver failure: Plan: Patient is a 46 year old male with a PMHx significant for alcohol abuse that he admits is 2 large glasses of vodka a day, HTN, previous gastric bypass surgery in 2015, previous bowel resection in 2019 who was brought to the ED via EMS with changes in mental status and recent fall. ammonia on admission was 99. He had hgb of 6.7 upon admission and there was question of GI bleeding but no obvious bleeding noticed and hgb hasbeen stable. - Still no signs of GI bleeding. suspect blood loss is from hematomas. - discussed case with Dr. Jenkins. - since only one bowel movement yesterda would start lactulose, looks like order for lactulose 20gm TID has been placed. continue xifaxan 550mg bid. - continue octreotide, thiamine, methylprednisone, zinc sulfate. Check Lille score on day 7 to assess efficacy of steroids. - we discussed avoiding etoh use. he seems motivated to attend rehab as an outpatient. - he can continue with rocephin. would hold off on paracentesis at this time. - He tells me he lives in [facility] and he prefers to follow with GI in [place] as outpatient. Admission and Anticipated Discharge Date Admission Date: March 17, 2022 Subjective Patient seen today and seems less confused and quicker to answer. hgb went from 7.7 to 7.2 to 7.6. discussed with nursing, he had 1 bowel movement overnight that was formed, no bleeding or melena. He denies any nausea, vomiting, abdominal pain, heartburn, dysphagia. CT from 03/18 showing a large partially visualized right infrascapular intramuscular hematoma which measures at least 15.1 x 6.1 cm. Multiple left flank hematomas as well as partially visualized intramuscular hemorrhage within the right gluteus katarzyna. Decreased sensitivity for detection of active extravasation on this exam but none identified. Severe hepatic steatosis. Cirrhosis. Anasarca. Small to moderate abdominal and pelvic ascites. Small collaterals suggestive of portal hypertension. Diffuse colonic wall thickening. This may be related to portal hypertension however a nonspecific colitis could appear similar. Review of Systems Constitutional: as per Subjective / HPI Physical Exam Constitutional: WD/WN, vitals as above Eyes: PERRL ENMT: external ear and nose normal, oropharynx normal Respiratory: normal respiratory effort, lungs clear to auscultation Cardiovascular: RRR, no murmur, no edema Gastrointestinal (Abdomen): normal bowel sounds, soft, nontender, no hepatosplenomegaly Skin: no rashes, warm and dry Psychiatric: A+Ox3, euthymic affect Results & Data Results & Data ([facility]) Vital Signs (Past 12 Hours) Vital Signs Temp Pulse Resp BP Pulse Ox O2 Del Method 03/19/22 07:00 37.0 C 112 H 28 H 99 03/19/22 07:00 139/80 03/19/22 07:26 103 H 03/19/22 06:00 36.9 C 108 H 19 99 03/19/22 06:00 131/86 03/19/22 05:00 37.0 C 106 H 12 99 03/19/22 05:00 129/76 03/19/22 04:30 37.0 C 98 H 12 100 03/19/22 04:30 152/75 H 03/19/22 04:00 138/79 03/19/22 04:00 37.0 C 100 H 11 L 99 03/19/22 04:00 138/79 03/19/22 03:30 150/84 H 03/19/22 03:30 37.0 C 105 H 16 100 03/19/22 03:00 37.0 C 101 H 14 99 03/19/22 03:00 135/82 03/19/22 02:30 130/80 03/19/22 02:30 37.0 C 105 H 16 99 03/19/22 02:30 130/80 03/19/22 02:08 36.8 C 108 H 12 100 03/19/22 02:08 145/72 H 03/19/22 02:00 36.8 C 112 H 21 95 03/19/22 02:00 141/105 H 03/19/22 01:50 128/81 03/19/22 01:50 36.9 C 113 H 21 98 03/19/22 01:40 144/96 H 03/19/22 01:40 36.9 C 110 H 12 96 03/19/22 01:32 148/78 H 03/19/22 01:32 36.9 C 111 H 14 100 03/19/22 01:20 146/89 H 03/19/22 01:20 36.8 C 109 H 13 90 03/19/22 02:41 37.0 C 101 H 12 130/80 99 03/19/22 01:41 36.9 C 110 H 14 144/96 H 97 03/19/22 01:11 36.8 C 111 H 11 L 100 03/19/22 01:11 150/72 H 03/19/22 01:00 36.8 C 109 H 19 99 03/19/22 01:00 144/74 H 03/19/22 00:50 149/92 H 03/19/22 00:50 36.8 C 109 H 16 97 03/19/22 00:48 36.8 C 109 H 13 96 03/19/22 00:48 163/90 H 03/19/22 00:27 36.9 C 120 H 19 100 03/19/22 00:27 156/100 H 03/19/22 00:26 36.9 C 114 H 12 100 03/18/22 23:00 149/76 H 03/19/22 03:42 37 C 98 H 12 150/84 H 100 03/19/22 01:11 36.8 C 111 H 12 150/72 H 100 03/19/22 00:56 36.8 C 112 H 19 149/92 H 100 03/19/22 00:09 Room Air 03/19/22 00:40 36.9 C 110 H 12 156/110 H 97 03/18/22 23:24 108 H 03/18/22 23:00 36.9 C 109 H 14 149/76 H 99 Room Air 03/18/22 22:00 36.9 C 108 H 15 147/81 H 97 Room Air Diagnostic Findings CT ANGIOGRAPHY OF THE ABDOMEN AND PELVIS CLINICAL HISTORY: persistent anemia, large hematoma to left flank COMPARISON STUDY: CT of the abdomen and pelvis March 17, 2022. TECHNIQUE: Helical axial images of the abdomen and pelvis were obtained during arterial phase following intravenous injection 117 cc Optiray 320 IV. Sagittal and coronal reconstructions were viewed as well as maximal intensity projections on an independent 3-D workstation. Automated exposure control was utilized for the study. A dose lowering technique was utilized adhering to the principles of ALARA. FINDINGS: This exam is compromised by artifact from body wall contacting the gantry. Diffuse anasarca is noted. Note is made of a partially visualized right infrascapular intramuscular hematoma that measures at least 15.1 x 6.1 cm. There are multiple left flank subcutaneous hematomas. The largest measures 9.2 x 7.5 cm. Sensitivity for detection of active extravasation is diminished on this exam. In addition, there are partially visualized intramuscular hemorrhage within the right gluteus katarzyna. There is a 1.3 cm indeterminate soft tissue nodule within the right ischioanal space. Sanchez balloon within the bladder is noted. No pneumatosis, free air or portal venous gas is present. Severe hepatic steatosis is noted. Nodularity liver surface is noted. This suggests cirrhosis. No hepatic lesions are noted. Mild pancreatic ductal dilatation and pancreatic glandular atrophy is similar to CT of February 02, 2022. Mild dilatation of the common bile duct is also unchanged and likely related to cholecystectomy. Small to moderate abdominal and pelvic ascites is present. No hemoperitoneum is present. There is no hydronephrosis. Spleen, adrenal glands and pancreas are unremarkable. A gastric bypass is noted. There is diffuse colonic wall thickening. Caliber of the abdominal aorta is normal. Major branch vessels are patent. No pneumatosis, free air or portal venous gas is present. Small collaterals are noted. IMPRESSION: 1. Large partially visualized right infrascapular intramuscular hematoma which measures at least 15.1 x 6.1 cm. Multiple left flank hematomas as well as partially visualized intramuscular hemorrhage within the right gluteus katarzyna. Decreased sensitivity for detection of active extravasation on this exam but none identified. These findings will be called/faxed to the ordering provider at time of dictation. 2. Severe hepatic steatosis. Cirrhosis. Anasarca. Small to moderate abdominal and pelvic ascites. Small collaterals suggestive of portal hypertension. 3. Diffuse colonic wall thickening. This may be related to portal hypertension however a nonspecific colitis could appear similar. 4. No bowel obstruction status post Jas-en-Y gastric bypass. PG Care Time/CCT Total # of Minutes Spent Total Time Spent with Patient: Total time spent is greater than 50% in coordination of care (as documented) at patient's floor/unit and/or counseling patient: Coding Level of Care Code 57250 Subseq Hosp Care Lvl 3 Diagnoses Acute liver failure K72.00
--- NOTE | 2022-03-19 10:30 | Hospitalist Progress Note ---
Date of Service March 19, 2022 Assessment & Plan (1) Acute liver failure: Plan: Patient has an extensive hx of alcohol abuse. Altered mental status is considerably improved. Ammonia level elevated on admission at 99. It is now down to 41. Patient is beginning to take p.o. meds. Will consider lactulose for further management of his ammonia level. Continue Rifaximin per GI Patient does have small amount of ascites on imaging. At this time I do not think there is enough fluid to consider paracentesis. No concern at this time for SBP Total and direct bilirubin still elevated.AST is elevated but trending downward Appreciate GI and critical care input Patient continues to drink ethanol. Consequently he is not a candidate for consideration for liver transplant (2) Hepatic encephalopathy: Plan: Ammonia was 99 and has now trended down to 41. Lactulose being started by the critical care team for management Patient alert and oriented. Response is noted to be delayed (3) Acute blood loss anemia (ABLA): Plan: No evidence of GI bleed Multiple spontaneous hematomas including right infrascapular, left flank, right quadricep No other evidence of acute bleeding Continue transfusion of packed red blood cells to maintain hemoglobin above 8 Patient is receiving FFP for supratherapeutic INR Continue to monitor serial hemoglobin and hematocrit (4) Alcoholic hepatitis: Plan: Elevated Discriminant factor as above Continue Steroids GI consulted and following (5) Supratherapeutic INR: Plan: Received FFP and cry Follow serial INR Does not meet criteria for Kcentra Has not received TXA to date (6) Thrombocytopenia: Plan: Trending downward Most likley due to chronic alcohol abuse Continue to monitor daily labs (7) Hypertension: Plan: SBP trending in the 130s and 140s Diastolic pressures are improved Medications include amlodipine. If patient tolerates oral intake, we can reinstitute this. (8) Hyponatremia: Plan: Likely due to beer potomania continue to monitor (9) Alcoholic intoxication: Plan: Consumed about 2-3 bottles of vodka will monitor for withdrawal (10) Malnutrition: Plan: Patient with severe malnutrition most likely due to chronic alcohol intake. Will begin boost or other oral supplement at this time since patient is now tolerating oral intake Nutritional services/dietitian is involved and will do evaluation for repletion of protein (11) DVT prophylaxis: Plan: Patient continues supratherapeutic INR Continue to trend coags as patient receives additional blood products Continue with teds stockings bilaterally Plan continue hospitalization Admission and Anticipated Discharge Date Admission Date: March 17, 2022 Subjective Attending: Dr. Aleman Patient seen and examined in room 102. He remains in ICU status. He has multiple spontaneous hematomas.Patient has no other acute He is still requiring transfusion of packed red blood cells for drop in hemoglobin. Patient has elevated total bilirubin, direct bilirubin and low albumin. He is still suffering from small amount of ascites as well as lower extremity edema. He appears to be alert and oriented x3 today. He states he has no pain. He denies any fever, chills, sweats, rigors. He does not seem to be experiencing any acute symptoms of alcohol withdrawal. He has been followed by gastroenterology and at this time they are not planning any intervention. INR continues to be elevated at 1.7. The patient has gotten FFP. He has not received any TXA. Kcentra was considered but not approved for this particular scenario. Patient has no awareness of visible bleeding in stool or hematuria. Patient has no other acute complaints. Review of Systems Review of Systems: A total of 10 systems was reviewed and is negative other than as listed in the HPI Physical Exam Physical Exam: GENERAL : No acute distress. Awake and alert and oriented x3. Pleasant. EYES: No icterus, gaze conjugate. Pupils equal NOSE: No evidence of epistaxis MOUTH: No lesions or candidiasis. Mucosa is moist NECK: Supple LUNGS: CTA B/L, no wheezes, rales or rhonchi HEART: Regular, rate controlled ABDOMEN: Soft, NT, ND, BS Present. Patient does have minimal fluid wave suggestive of ascites EXTREMITIES: +2 bilateral LE edema, pedal pulses intact and equal bilaterally. Feet are warm to touch NEURO: A&OX3. Patient is extremely weak. He has difficulty sitting up and maintaining an upright seated position in bed. [employer] strength is equal bilaterally. Patient is able to move all 4 extremities spontaneously. He reports equal sensation to bilateral lower extremities. Results & Data Results & Data ([facility]) Vital Signs (Past 12 Hours) Vital Signs Temp Pulse Resp BP Pulse Ox O2 Del Method 03/19/22 10:15 37.0 C 105 H 18 144/80 H 98 03/19/22 10:01 37.4 C 108 H 16 135/81 03/19/22 07:00 37.0 C 112 H 28 H 99 03/19/22 07:00 139/80 03/19/22 07:26 103 H 03/19/22 06:00 36.9 C 108 H 19 99 03/19/22 06:00 131/86 03/19/22 05:00 37.0 C 106 H 12 99 03/19/22 05:00 129/76 03/19/22 04:30 37.0 C 98 H 12 100 03/19/22 04:30 152/75 H 03/19/22 04:00 138/79 03/19/22 04:00 37.0 C 100 H 11 L 99 03/19/22 04:00 138/79 03/19/22 03:30 150/84 H 03/19/22 03:30 37.0 C 105 H 16 100 03/19/22 03:00 37.0 C 101 H 14 99 03/19/22 03:00 135/82 03/19/22 02:30 130/80 03/19/22 02:30 37.0 C 105 H 16 99 03/19/22 02:30 130/80 03/19/22 02:08 36.8 C 108 H 12 100 03/19/22 02:08 145/72 H 03/19/22 02:00 36.8 C 112 H 21 95 03/19/22 02:00 141/105 H 03/19/22 01:50 128/81 03/19/22 01:50 36.9 C 113 H 21 98 03/19/22 01:40 144/96 H 03/19/22 01:40 36.9 C 110 H 12 96 03/19/22 01:32 148/78 H 03/19/22 01:32 36.9 C 111 H 14 100 03/19/22 01:20 146/89 H 03/19/22 01:20 36.8 C 109 H 13 90 03/19/22 02:41 37.0 C 101 H 12 130/80 99 03/19/22 01:41 36.9 C 110 H 14 144/96 H 97 03/19/22 01:11 36.8 C 111 H 11 L 100 03/19/22 01:11 150/72 H 03/19/22 01:00 36.8 C 109 H 19 99 03/19/22 01:00 144/74 H 03/19/22 00:50 149/92 H 03/19/22 00:50 36.8 C 109 H 16 97 03/19/22 00:48 36.8 C 109 H 13 96 03/19/22 00:48 163/90 H 03/19/22 00:27 36.9 C 120 H 19 100 03/19/22 00:27 156/100 H 03/19/22 00:26 36.9 C 114 H 12 100 03/18/22 23:00 149/76 H 03/19/22 03:42 37 C 98 H 12 150/84 H 100 03/19/22 01:11 36.8 C 111 H 12 150/72 H 100 03/19/22 00:56 36.8 C 112 H 19 149/92 H 100 03/19/22 00:09 Room Air 03/19/22 00:40 36.9 C 110 H 12 156/110 H 97 03/18/22 23:24 108 H 03/18/22 23:00 36.9 C 109 H 14 149/76 H 99 Room Air Critical Care Results & Data Vital Signs (Past 12 Hours) Vital Signs Temp Pulse Resp BP Pulse Ox O2 Del Method 03/19/22 09:01 144/82 H 03/19/22 09:01 37.0 C 110 H 15 99 03/19/22 09:00 37.0 C 112 H 13 99 03/19/22 08:00 37.0 C 108 H 12 86 L 03/19/22 08:00 148/91 H 03/19/22 10:15 37.0 C 105 H 18 144/80 H 98 03/19/22 10:01 37.4 C 108 H 16 135/81 03/19/22 07:00 37.0 C 112 H 28 H 99 03/19/22 07:00 139/80 03/19/22 07:26 103 H 03/19/22 06:00 36.9 C 108 H 19 99 03/19/22 06:00 131/86 03/19/22 05:00 37.0 C 106 H 12 99 03/19/22 05:00 129/76 03/19/22 04:30 37.0 C 98 H 12 100 03/19/22 04:30 152/75 H 03/19/22 04:00 138/79 03/19/22 04:00 37.0 C 100 H 11 L 99 03/19/22 04:00 138/79 03/19/22 03:30 150/84 H 03/19/22 03:30 37.0 C 105 H 16 100 03/19/22 03:00 37.0 C 101 H 14 99 03/19/22 03:00 135/82 03/19/22 02:30 130/80 03/19/22 02:30 37.0 C 105 H 16 99 03/19/22 02:30 130/80 03/19/22 02:08 36.8 C 108 H 12 100 03/19/22 02:08 145/72 H 03/19/22 02:00 36.8 C 112 H 21 95 03/19/22 02:00 141/105 H 03/19/22 01:50 128/81 03/19/22 01:50 36.9 C 113 H 21 98 03/19/22 01:40 144/96 H 03/19/22 01:40 36.9 C 110 H 12 96 03/19/22 01:32 148/78 H 03/19/22 01:32 36.9 C 111 H 14 100 03/19/22 01:20 146/89 H 03/19/22 01:20 36.8 C 109 H 13 90 03/19/22 02:41 37.0 C 101 H 12 130/80 99 03/19/22 01:41 36.9 C 110 H 14 144/96 H 97 03/19/22 01:11 36.8 C 111 H 11 L 100 03/19/22 01:11 150/72 H 03/19/22 01:00 36.8 C 109 H 19 99 03/19/22 01:00 144/74 H 03/19/22 00:50 149/92 H 03/19/22 00:50 36.8 C 109 H 16 97 03/19/22 00:48 36.8 C 109 H 13 96 03/19/22 00:48 163/90 H 03/19/22 00:27 36.9 C 120 H 19 100 03/19/22 00:27 156/100 H 03/19/22 00:26 36.9 C 114 H 12 100 03/18/22 23:00 149/76 H 03/19/22 03:42 37 C 98 H 12 150/84 H 100 03/19/22 01:11 36.8 C 111 H 12 150/72 H 100 03/19/22 00:56 36.8 C 112 H 19 149/92 H 100 03/19/22 00:09 Room Air 03/19/22 00:40 36.9 C 110 H 12 156/110 H 97 03/18/22 23:24 108 H 03/18/22 23:00 36.9 C 109 H 14 149/76 H 99 Room Air Lab & Micro Results (Past 24 Hours) RBC 2.25 M/uL (4.63-6.08) L 03/19/22 WBC 12.57 K/ul (4.8-10.8) H 03/19/22 Hgb 7.6 g/dl (14.0-18.0) L 03/19/22 Hct 21.4 % (40.1-51.0) L 03/19/22 MCV 94.7 fL (80.0-100.0) 03/19/22 MCH 33.3 pg (25.0-34.0) 03/19/22 MCHC 35.2 g/dL (32.0-36.0) 03/19/22 RDW Standard Deviation 56.2 fL (36.4-46.3) H 03/19/22 RDW Coefficient of Variation 19.8 % (11.5-14.5) H 03/19/22 Plt Count 60 K/uL (130-400) L 03/19/22 MPV 10.0 fL (9.4-12.4) 03/19/22 Nucleated Red Blood Cells % (auto) 1.2 % 03/19 Nucleated RBC Absolute Count (auto) 0.15 K/uL (0-0) H 03/09 08/30 Neutrophils (%) (Auto) 84.9 % 03/19/22 Lymphocytes (%) (Auto) 6.3 % 03/19/22 Monocytes # (Auto) 0.98 K/uL (0.24-0.82) H 03/19/22 Eosinophils # (Auto) 0.00 K/uL (0-0.50) 03/19/22 Immature Granulocyte % (Auto) 0.9 % 03/19/22 Neutrophils # (Auto) 10.68 K/uL (1.4-6.5) H 03/19/22 Lymphocytes # (Auto) 0.79 K/uL (1.2-3.4) L 03/19/22 Monocytes # (Auto) 0.98 K/uL (0.24-0.82) H 03/19/22 Eosinophils # (Auto) 0.00 K/uL (0-0.50) 03/19/22 Basophils # (Auto) 0.01 K/uL (0-0.2) 03/19/22 Immature Granulocyte # (Auto) 0.11 K/uL (0.00-0.02) H 03/19 Polychromasia 1+ 03/19/22 Target Cells 1+ 03/19/22 Toxic Vacuolation 1+ 03/19/22 Na 129 mmol/L (136-145) L 03/19/22 K 4.2 mmol/L (3.5-5.1) 03/19/22 Cl 100 mmol/L (98-107) 03/19/22 CO2 24 mmol/L (21-32) 03/19/22 Anion Gap 5 (3-11) 03/19/22 BUN 14 mg/dl (6-23) 03/19/22 Creatinine 1.10 mg/dl (0.6-1.4) 03/19/22 Estimated GFR ( Amer) 93.5 ml/min 03/19/22 Estimated GFR (Non-Af Amer) 80.6 ml/min 03/19/22 BUN/Creatinine Ratio 12.7 (10-20) 03/19/22 Glu 183 mg/dl (70-99(Fasting)) H 03/19/22 Ca 7.7 mg/dl (8.5-10.1) L 03/19/22 Phosphorus Level 3.1 mg/dl (2.5-4.9) 03/19/22 Total Bilirubin 12.1 mg/dl (0.2-1.0) H 03/19/22 Direct Bilirubin 5.1 mg/dl (0-0.2) H 03/19/22 AST 186 U/L (13-39) H 03/19/22 ALT 42 U/L (7-52) 03/19/22 Alkaline Phosphatase 101 U/L (34-104) 03/19/22 TP 7.1 gm/dl (6.0-8.3) 03/19/22 Albumin 1.9 gm/dl (3.4-5.0) L 03/19/22 Globulin 5.2 gm/dl (2.5-4.0) H 03/19/22 Albumin/Globulin Ratio 0.4 (0.9-2) L 03/19/22 Mg 2.1 mg/dl (1.7-2.4) 03/19/22 04:35 Calcium Level 7.7 mg/dl (8.5-10.1) L 03/19/22 04:35 Prothromb Time International Ratio 1.7 (0.9-1.1) H 03/19/22 07 :39 Microbiology 03/17/22 09:24 Urine Culture - Final Urine,Indwelling Cath No growth - less than 1,000 colonies/mL. Diagnostic Findings (Past 24 Hours) Abdomen/Pelvis CTA 03/18/22 23:34 CT ANGIOGRAPHY OF THE ABDOMEN AND PELVIS CLINICAL HISTORY: persistent anemia, large hematoma to left flank COMPARISON STUDY: CT of the abdomen and pelvis March 17, 2022. TECHNIQUE: Helical axial images of the abdomen and pelvis were obtained during arterial phase following intravenous injection 117 cc Optiray 320 IV. Sagittal and coronal reconstructions were viewed as well as maximal intensity projections on an independent 3-D workstation. Automated exposure control was utilized for the study. A dose lowering technique was utilized adhering to the principles of ALARA. FINDINGS: This exam is compromised by artifact from body wall contacting the gantry. Diffuse anasarca is noted. Note is made of a partially visualized right infrascapular intramuscular hematoma that measures at least 15.1 x 6.1 cm. There are multiple left flank subcutaneous hematomas. The largest measures 9.2 x 7.5 cm. Sensitivity for detection of active extravasation is diminished on this exam. In addition, there are partially visualized intramuscular hemorrhage within the right gluteus katarzyna. There is a 1.3 cm indeterminate soft tissue nodule within the right ischioanal space. Sanchez balloon within the bladder is noted. No pneumatosis, free air or portal venous gas is present. Severe hepatic steatosis is noted. Nodularity liver surface is noted. This suggests cirrhosis. No hepatic lesions are noted. Mild pancreatic ductal dilatation and pancreatic glandular atrophy is similar to CT of February 02, 2022. Mild dilatation of the common bile duct is also unchanged and likely related to cholecystectomy. Small to moderate abdominal and pelvic ascites is present. No hemoperitoneum is present. There is no hydronephrosis. Spleen, adrenal glands and pancreas are unremarkable. A gastric bypass is noted. There is diffuse colonic wall thickening. Caliber of the abdominal aorta is normal. Major branch vessels are patent. No pneumatosis, free air or portal venous gas is present. Small collaterals are noted. IMPRESSION: 1. Large partially visualized right infrascapular intramuscular hematoma which measures at least 15.1 x 6.1 cm. Multiple left flank hematomas as well as partially visualized intramuscular hemorrhage within the right gluteus katarzyna. Decreased sensitivity for detection of active extravasation on this exam but none identified. These findings will be called/faxed to the ordering provider at time of dictation. 2. Severe hepatic steatosis. Cirrhosis. Anasarca. Small to moderate abdominal and pelvic ascites. Small collaterals suggestive of portal hypertension. 3. Diffuse colonic wall thickening. This may be related to portal hypertension however a nonspecific colitis could appear similar. 4. No bowel obstruction status post Jas-en-Y gastric bypass. ACT 112: Negative or not required by law. Electronically signed by: Derek Stewart M.D. 03/19/2022 7:04 AM I & O Totals 24 Hours 03/18/22 03/19/22 03/20/22 06:59 06:59 06:59 Intake Total 5253.828 / 5253.828 2773.166 / 2773.166 262.617 / 262.617 Output Total 901 / 901 886 / 886 60 / 60 Balance 4352.828 / 4352.828 1887.166 / 1887.166 202.617 / 202.617 Cumulative 03/17/22 08:39 thru 03/19/22 10:05 Intake Total 8289.611 Output Total 1847 Balance 6442.611 RT Ventilator Mngmt (Last Documented) Ventilator Ordered Settings Respiratory Rate 18 03/19/22 10:15 Ventilator - PT Measurements Respiratory Rate 18 PG Care Time/CCT Total # of Minutes Spent Total Time Spent with Patient: Total time spent is greater than 50% in coordination of care (as documented) at patient's floor/unit and/or counseling patient: Coding Level of Care Code 70793 Subseq Hosp Care Lvl 3 Diagnoses Acute liver failure K72.00 Hepatic encephalopathy K72.90 Acute blood loss anemia (ABLA) D62 Alcoholic hepatitis K70.11 Ascites presence: with ascites Supratherapeutic INR R79.1 Thrombocytopenia D69.6 Hypertension I10 Hypertension type: unspecified Hyponatremia E87.1 Alcoholic intoxication F10.929 Malnutrition E46 DVT prophylaxis Z29.9 Time Spent (min) 35 (1) Alcoholic hepatitis Ascites presence: with ascites Qualified Code(s): K70.11 - Alcoholic hepatitis with ascites (2) Hypertension Hypertension type: unspecified Qualified Code(s): I10 - Essential (primary) hypertension
[2022-03-19 11:14] LABS: Estimated Average Glucose 111 mg/dl; Hemoglobin A1C 5.5 % (4.5-5.6)
[2022-03-19] MEDS: LACTULOSE SYRUP 20 GM/30 ML UDC PO SCH ×2 (13:09→20:36)
--- NOTE | 2022-03-19 13:23 | Billing Data ---
Date of Service March 19, 2022 Coding Level of Care Code 28753 Subseq Hosp Care Lvl 3
[2022-03-19 15:45] LABS: Fibrinogen 176 mg/dl (184-400); INR 1.6 (0.9-1.1); Partial Thromboplastin Ratio 1.3; Partial Thromboplastin Time 36.7 Seconds (21.0-31.0); Prothrombin Time 16.6 Seconds (9.0-12.0)
[2022-03-19 15:48] LABS: Hematocrit (blood only) 21.6 % (40.1-51.0); Hemoglobin 7.4 g/dl (14.0-18.0); Mean Corpuscular Hemoglobin 32.9 pg (25.0-34.0); Mean Corpuscular Hgb Conc 34.3 g/dL (32.0-36.0); Mean Platelet Volume 10.9 fL (9.4-12.4); Nucleated RBC # (auto) 0.42 K/uL (0-0); Nucleated RBC % (auto) 3.1 %; Platelet Count 70 K/uL (130-400); RDW Coefficient of Variation 20.5 % (11.5-14.5); RDW Standard Deviation 57.1 fL (36.4-46.3); Red Blood Count 2.25 M/uL (4.63-6.08); White Blood Count 13.72 K/ul (4.8-10.8)
[2022-03-19 16:00] LABS: Anisocytosis Present; Basophils # (auto) 0.02 K/uL (0-0.2); Basophils % (auto) 0.1 %; Immature Granulocytes # (auto) 0.35 K/uL (0.00-0.02); Immature Granulocytes % (auto) 2.6 %; Lymphocytes # (auto) 0.72 K/uL (1.2-3.4); Lymphocytes % (auto) 5.2 %; Macrocytosis Present; Monocytes # (auto) 1.08 K/uL (0.24-0.82); Monocytes % (auto) 7.9 %; Neutrophils # (auto) 11.55 K/uL (1.4-6.5); Neutrophils % (auto) 84.2 %; Polychromasia 1+; Target Cells 1+
--- NOTE | 2022-03-19 19:25 | XCELERA ---
[id number]
[2022-03-19] MEDS: THIAMINE HCL 100 MG TAB PO SCH (20:36)
[2022-03-19 23:41] LABS: Hematocrit (blood only) 21.9 % (40.1-51.0); Hemoglobin 7.5 g/dl (14.0-18.0)
[2022-03-20] MEDS: INSULIN ASPART PER UNIT SC SCH ×4 (00:12→16:41)
[2022-03-20 05:46] LABS: Fibrinogen 147 mg/dl (184-400); INR 1.8 (0.9-1.1); Prothrombin Time 18.4 Seconds (9.0-12.0)
[2022-03-20 05:51] LABS: Albumin Globulin Ratio 0.4 (0.9-2); Albumin Level 2.3 gm/dl (3.4-5.0); BUN Creatinine Ratio 13.9 (10-20); Bilirubin Direct 5.8 mg/dl (0-0.2); Bilirubin,Total 14.5 mg/dl (0.2-1.0); Creatinine Clr Calc Pharmacy 121.4 ml/min; Est GFR (African American) 88.6 ml/min; Est GFR (Non-African American) 76.4 ml/min; Globulin 5.2 gm/dl (2.5-4.0); Magnesium 2.1 mg/dl (1.7-2.4); Phosphorus 3.2 mg/dl (2.5-4.9); Potassium 3.5 mmol/L (3.5-5.1); Total Protein 7.5 gm/dl (6.0-8.3)
[2022-03-20] MEDS: ICU ELECTROLYTE REPLACEMENT PROTOCOL SCH (06:04)
[2022-03-20 06:05] LABS: Hematocrit (blood only) 22.2 % (40.1-51.0); Hemoglobin 7.5 g/dl (14.0-18.0); Mean Corpuscular Hemoglobin 32.6 pg (25.0-34.0); Mean Corpuscular Hgb Conc 33.8 g/dL (32.0-36.0); Mean Corpuscular Volume 96.5 fL (80.0-100.0); Nucleated RBC # (auto) 0.87 K/uL (0-0); Nucleated RBC % (auto) 5.8 %; Platelet Count 64 K/uL (130-400); RDW Coefficient of Variation 21.2 % (11.5-14.5); RDW Standard Deviation 57.7 fL (36.4-46.3); White Blood Count 14.96 K/ul (4.8-10.8)
[2022-03-20 06:07] LABS: Anisocytosis Present; Basophils # (auto) 0.03 K/uL (0-0.2); Basophils % (auto) 0.2 %; Echinocytes 1+; Immature Granulocytes # (auto) 0.81 K/uL (0.00-0.02); Immature Granulocytes % (auto) 5.4 %; Monocytes # (auto) 1.71 K/uL (0.24-0.82); Monocytes % (auto) 11.4 %; Neutrophils # (auto) 11.21 K/uL (1.4-6.5); Polychromasia 1+; Target Cells 1+
[2022-03-20] MEDS: POTASSIUM CHLORIDE CRTAB 20 MEQ TABCR PO SCH ×2 (06:13→12:14)
[2022-03-20] MEDS ORDERED: PHYTONADIONE 5 MG in DEXTROSE 5% 50 ML IV ONE (06:35)
[2022-03-20] MEDS: FUROSEMIDE 40 MG TAB PO SCH (08:36)
[2022-03-20] MEDS: SPIRONOLACTONE 100 MG TAB PO SCH (08:36)
[2022-03-20] MEDS: rifAXIMin 550 MG TABLET PO SCH ×2 (08:36→21:57)
[2022-03-20] MEDS: FOLIC ACID 1 MG TAB PO SCH (08:36)
[2022-03-20] MEDS: PANTOprazole 40 MG TAB PO SCH (08:36)
[2022-03-20] MEDS: THIAMINE HCL 100 MG TAB PO SCH ×2 (08:36→21:57)
[2022-03-20] MEDS: ZINC SULFATE 220 MG CAPSULE PO SCH (08:37)
[2022-03-20] MEDS: LACTULOSE SYRUP 20 GM/30 ML UDC PO SCH ×4 (08:37→22:00)
--- NOTE | 2022-03-20 08:46 | Critical Care Progress Note ---
Date of Service March 20, 2022 Assessment & Plan (1) Acute liver failure: (2) Hepatic encephalopathy: (3) Acute blood loss anemia (ABLA): (4) GI bleed: (5) Supratherapeutic INR: (6) Acute alcohol intoxication: (7) Alcoholic hepatitis: Plan Reason Critically Ill: Santiago is a 46 year old male w/ alcoholic intoxication, altered levels of consciousness, as well as blood loss anemia requiring multiple transfusions. 24-hour events: The patient has maintained hemodynamic stability. He is not required transfusion or administration of additional blood products. Neuro AMS: Resolving. Continue thiamine and folate as well as rifaximin and lactulose. As needed benzodiazepines for alcohol withdrawal. Cardiac Sinus tachycardia: Improving. 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 Currently on prednisolone 40 mg a day for alcoholic hepatitis which will need to be continued for 30days. Coagulopathy appears improved. Case management has met with the patient to discuss rehab for alcohol abuse unstable. Renal/Electrolytes Hyponatremia: Stable. Continue to follow. Kidney functions improving. Continue lactulose and Aldactone in an effort to prevent third spacing and manage ascites. Strict I&O's Endo Glycemic control per protocol Heme Anemia secondary to spontaneous bleed in the subcutaneous tissues. His hemoglobin has been stable and coagulopathy is stable. Continue surveillance. 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 Try and keep platelet count above 50,000 in the setting of acute bleeding. ID No current issues. White count continues to be mildly elevated in the 12-14,000 range but the patient's been afebrile. Off abx currently. If leukocytosis persist or the patient comes febrile, sampling of the ascitic fluid to evaluate for SBP might be appropriate Lines/IV Access Peripheral IVs. DVT Prophylaxis SCDs, holding off on chemical prophylaxis due to coagulopathy. F/E/N/GI: Tolerating diet The patient is doing well clinically. He is stable to transfer out of the intensive care unit. Critical care will sign off. Feel free to contact us if we can be of additional questions. Admission and Anticipated Discharge Date Admission Date: March 17, 2022 Subjective Patient seen and examined. EMR reviewed. Discussed with critical care nurse at bedside. The patient is doing reasonably well. He did not sleep well last night. He is tolerating a diet. His mental status continues to improve. His hemoglobin has been stable and has not required blood products overnight. Review of Systems Review of Systems: All systems reviewed & are unremarkable except as noted in Subjective Physical Exam Constitutional: WD/WN, vitals as above Eyes: sclerae not anicteric Neck: trachea midline, no thyromegaly Respiratory: normal respiratory effort, lungs clear to auscultation Cardiovascular: RRR, no murmur, no edema Gastrointestinal (Abdomen): normal bowel sounds, soft, nontender, no hepatosplenomegaly Musculoskeletal: Extremities: extremities normal to inspection Skin: no rashes, warm and dry Lymphatic: no cervical lymphadenopathy Results & Data Results & Data ([facility]) Vital Signs (Past 12 Hours) Vital Signs Pulse Resp BP Pulse Ox 03/20/22 06:31 162/100 H 03/20/22 06:31 103 H 15 98 03/20/22 06:00 105 H 12 98 03/20/22 06:00 113/89 03/20/22 05:45 102 H 12 99 03/20/22 05:45 154/94 H 03/20/22 05:30 143/95 H 03/20/22 05:30 101 H 12 98 03/20/22 05:15 103 H 14 100 03/20/22 05:15 144/91 H 03/20/22 05:00 103 H 10 L 94 03/20/22 05:00 137/85 03/20/22 04:45 138/85 03/20/22 04:45 106 H 26 H 99 03/20/22 04:30 132/77 03/20/22 04:30 99 H 17 98 03/20/22 04:15 96 H 10 L 97 03/20/22 04:15 131/76 03/20/22 04:00 95 H 10 L 97 03/20/22 04:00 132/75 03/20/22 03:45 96 H 13 97 03/20/22 03:45 135/83 03/20/22 03:30 137/79 03/20/22 03:30 93 H 14 98 03/20/22 03:15 119/83 03/20/22 03:15 99 H 15 97 03/20/22 03:00 95 H 19 99 03/20/22 03:00 143/86 H 03/20/22 02:45 90 9 L 98 03/20/22 02:45 137/80 03/20/22 02:30 129/79 03/20/22 02:30 88 13 99 03/20/22 02:15 150/86 H 03/20/22 02:15 98 H 17 98 03/20/22 02:00 97 H 10 L 100 03/20/22 02:00 143/97 H 03/20/22 01:46 142/78 H 03/20/22 01:46 105 H 14 95 03/20/22 01:31 99 H 21 99 03/20/22 01:31 148/79 H 03/20/22 01:15 95 H 11 L 98 03/20/22 01:15 141/86 H 03/20/22 01:00 100 H 17 98 03/20/22 01:00 136/97 03/20/22 00:45 97 H 11 L 100 03/20/22 00:45 148/81 H 03/20/22 00:30 97 H 14 95 03/20/22 00:30 130/94 03/20/22 00:15 101 H 14 99 03/20/22 00:15 153/96 H 03/19/22 23:45 100 H 9 L 100 03/19/22 23:45 148/85 H 03/19/22 23:30 97 H 14 100 03/19/22 23:30 131/84 03/19/22 23:15 130/82 03/19/22 23:15 94 H 16 100 03/19/22 23:00 95 H 21 100 03/19/22 23:00 164/87 H 03/19/22 22:45 95 H 17 89 L 03/19/22 22:45 141/94 H 03/19/22 22:30 125/99 03/19/22 22:30 96 H 25 H 98 03/19/22 22:15 93 H 16 92 03/19/22 22:15 150/113 H 03/19/22 22:00 101 H 17 100 03/19/22 22:00 135/100 03/19/22 21:45 92 H 18 100 03/19/22 21:45 119/81 03/19/22 21:30 92 H 14 96 03/19/22 21:30 137/91 03/19/22 21:15 104 H 21 100 03/19/22 21:15 143/99 H 03/19/22 21:00 101 H 15 98 03/19/22 21:00 130/84 03/19/22 20:45 144/96 H 03/19/22 20:45 105 H 16 99 03/20/22 00:00 103 H Critical Care Results & Data Vital Signs (Past 12 Hours) Vital Signs Pulse Resp BP Pulse Ox 03/20/22 06:31 162/100 H 03/20/22 06:31 103 H 15 98 03/20/22 06:00 105 H 12 98 03/20/22 06:00 113/89 03/20/22 05:45 102 H 12 99 03/20/22 05:45 154/94 H 03/20/22 05:30 143/95 H 03/20/22 05:30 101 H 12 98 03/20/22 05:15 103 H 14 100 03/20/22 05:15 144/91 H 03/20/22 05:00 103 H 10 L 94 03/20/22 05:00 137/85 03/20/22 04:45 138/85 03/20/22 04:45 106 H 26 H 99 03/20/22 04:30 132/77 03/20/22 04:30 99 H 17 98 03/20/22 04:15 96 H 10 L 97 03/20/22 04:15 131/76 03/20/22 04:00 95 H 10 L 97 03/20/22 04:00 132/75 03/20/22 03:45 96 H 13 97 03/20/22 03:45 135/83 03/20/22 03:30 137/79 03/20/22 03:30 93 H 14 98 03/20/22 03:15 119/83 03/20/22 03:15 99 H 15 97 03/20/22 03:00 95 H 19 99 03/20/22 03:00 143/86 H 03/20/22 02:45 90 9 L 98 03/20/22 02:45 137/80 03/20/22 02:30 129/79 03/20/22 02:30 88 13 99 03/20/22 02:15 150/86 H 03/20/22 02:15 98 H 17 98 03/20/22 02:00 97 H 10 L 100 03/20/22 02:00 143/97 H 03/20/22 01:46 142/78 H 03/20/22 01:46 105 H 14 95 03/20/22 01:31 99 H 21 99 03/20/22 01:31 148/79 H 03/20/22 01:15 95 H 11 L 98 03/20/22 01:15 141/86 H 03/20/22 01:00 100 H 17 98 03/20/22 01:00 136/97 03/20/22 00:45 97 H 11 L 100 03/20/22 00:45 148/81 H 03/20/22 00:30 97 H 14 95 03/20/22 00:30 130/94 03/20/22 00:15 101 H 14 99 03/20/22 00:15 153/96 H 03/19/22 23:45 100 H 9 L 100 03/19/22 23:45 148/85 H 03/19/22 23:30 97 H 14 100 03/19/22 23:30 131/84 03/19/22 23:15 130/82 03/19/22 23:15 94 H 16 100 03/19/22 23:00 95 H 21 100 03/19/22 23:00 164/87 H 03/19/22 22:45 95 H 17 89 L 03/19/22 22:45 141/94 H 03/19/22 22:30 125/99 03/19/22 22:30 96 H 25 H 98 03/19/22 22:15 93 H 16 92 03/19/22 22:15 150/113 H 03/19/22 22:00 101 H 17 100 03/19/22 22:00 135/100 03/19/22 21:45 92 H 18 100 03/19/22 21:45 119/81 03/19/22 21:30 92 H 14 96 03/19/22 21:30 137/91 03/19/22 21:15 104 H 21 100 03/19/22 21:15 143/99 H 03/19/22 21:00 101 H 15 98 03/19/22 21:00 130/84 03/19/22 20:45 144/96 H 03/19/22 20:45 105 H 16 99 03/20/22 00:00 103 H Lab & Micro Results (Past 24 Hours) RBC 2.30 M/uL (4.63-6.08) L 03/20/22 WBC 14.96 K/ul (4.8-10.8) H 03/20/22 Hgb 7.5 g/dl (14.0-18.0) L 03/20/22 Hct 22.2 % (40.1-51.0) L 03/20/22 MCV 96.5 fL (80.0-100.0) 03/20/22 MCH 32.6 pg (25.0-34.0) 03/20/22 MCHC 33.8 g/dL (32.0-36.0) 03/20/22 RDW Standard Deviation 57.7 fL (36.4-46.3) H 03/20/22 RDW Coefficient of Variation 21.2 % (11.5-14.5) H 03/20/22 Plt Count 64 K/uL (130-400) L 03/20/22 MPV 11.0 fL (9.4-12.4) 03/20/22 Nucleated Red Blood Cells % (auto) 5.8 % 03/20 Nucleated RBC Absolute Count (auto) 0.87 K/uL (0-0) H 03/09 09/30 Neutrophils (%) (Auto) 75.0 % 03/20/22 Lymphocytes (%) (Auto) 8.0 % 03/20/22 Monocytes # (Auto) 1.71 K/uL (0.24-0.82) H 03/20/22 Eosinophils # (Auto) 0.00 K/uL (0-0.50) 03/20/22 Immature Granulocyte % (Auto) 5.4 % 03/20/22 Neutrophils # (Auto) 11.21 K/uL (1.4-6.5) H 03/20/22 Lymphocytes # (Auto) 1.20 K/uL (1.2-3.4) 03/20/22 Monocytes # (Auto) 1.71 K/uL (0.24-0.82) H 03/20/22 Eosinophils # (Auto) 0.00 K/uL (0-0.50) 03/20/22 Basophils # (Auto) 0.03 K/uL (0-0.2) 03/20/22 Immature Granulocyte # (Auto) 0.81 K/uL (0.00-0.02) H 03/20 Polychromasia 1+ 03/20/22 Echinocytes 1+ 03/20/22 Anisocytosis Present 03/20/22 Macrocytosis Present 03/19/22 Target Cells 1+ 03/20/22 Na 130 mmol/L (136-145) L 03/20/22 K 3.5 mmol/L (3.5-5.1) 03/20/22 Cl 100 mmol/L (98-107) 03/20/22 CO2 24 mmol/L (21-32) 03/20/22 Anion Gap 6 (3-11) 03/20/22 BUN 16 mg/dl (6-23) 03/20/22 Creatinine 1.15 mg/dl (0.6-1.4) 03/20/22 Estimated GFR ( Amer) 88.6 ml/min 03/20/22 Estimated GFR (Non-Af Amer) 76.4 ml/min 03/20/22 BUN/Creatinine Ratio 13.9 (10-20) 03/20/22 Glu 137 mg/dl (70-99(Fasting)) H 03/20/22 Ca 8.0 mg/dl (8.5-10.1) L 03/20/22 Phosphorus Level 3.2 mg/dl (2.5-4.9) 03/20/22 Total Bilirubin 14.5 mg/dl (0.2-1.0) H 03/20/22 Direct Bilirubin 5.8 mg/dl (0-0.2) H 03/20/22 AST 174 U/L (13-39) H 03/20/22 ALT 43 U/L (7-52) 03/20/22 Alkaline Phosphatase 103 U/L (34-104) 03/20/22 TP 7.5 gm/dl (6.0-8.3) 03/20/22 Albumin 2.3 gm/dl (3.4-5.0) L 03/20/22 Globulin 5.2 gm/dl (2.5-4.0) H 03/20/22 Albumin/Globulin Ratio 0.4 (0.9-2) L 03/20/22 Mg 2.1 mg/dl (1.7-2.4) 03/20/22 05:11 Calcium Level 8.0 mg/dl (8.5-10.1) L 03/20/22 05:11 Prothromb Time International Ratio 1.8 (0.9-1.1) H 03/20/22 05 :11 Microbiology 03/17/22 09:24 Urine Culture - Final Urine,Indwelling Cath No growth - less than 1,000 colonies/mL. I & O Totals 24 Hours 03/19/22 03/20/22 03/21/22 06:59 06:59 06:59 Intake Total 2773.166 / 2773.166 2296.682 / 2296.682 Output Total 886 / 886 458 / 458 Balance 1887.166 / 2806.551 1071.682 / 1838.682 Cumulative 03/17/22 08:39 thru 03/20/22 06:00 Intake Total 61399.676 Output Total 2245 Balance 8078.676 RT Ventilator Mngmt (Last Documented) Ventilator Ordered Settings Respiratory Rate 15 03/20/22 06:31 Ventilator - PT Measurements Respiratory Rate 15 Coding Level of Care Code 54436 Subseq Hosp Care Lvl 3 Diagnoses Acute liver failure K72.00 Hepatic encephalopathy K72.90 Acute blood loss anemia (ABLA) D62 GI bleed K92.2 GI bleed type/associated pathology: unspecified gastrointestinal hemorrhage type Supratherapeutic INR R79.1 Acute alcohol intoxication F10.929 Alcoholic hepatitis K70.11 Ascites presence: with ascites (1) GI bleed GI bleed type/associated pathology: unspecified gastrointestinal hemorrhage type Qualified Code(s): K92.2 - Gastrointestinal hemorrhage, unspecified (2) Alcoholic hepatitis Ascites presence: with ascites Qualified Code(s): K70.11 - Alcoholic hepatitis with ascites
[2022-03-20] MEDS: prednisoLONE sod phosphate 15 MG/5 ML PO SCH (08:54)
--- NOTE | 2022-03-20 10:26 | Communication Note ---
Date of Service: March 20, 2022 46 year old male with a PMHx significant for alcohol abuse that he admits is 2 large glasses of vodka a day, HTN, previous gastric bypass surgery in 2015, previous bowel resection in 2019 who was brought to the ED via EMS with changes in mental status and recent fall. ammonia on admission was 99. He had hgb of 6.7 upon admission and there was question of GI bleeding but no obvious bleeding noticed and hgb hasbeen stable. suspected anemia is related to hematomas. Patient's confusion has improved and he is more alert. Currently working with PT and getting out of bed and moving. Patient has no concerns today from a gi standpoint. He is doing better and is to be transferred out of the ICU. - continue xifaxan 550mg bid. - continue thiamine, methylprednisone, zinc sulfate. Check Lille score on day 7 to assess efficacy of steroids. - we discussed avoiding etoh use. he seems motivated to attend rehab as an outpatient. - He tells me he lives in [facility] and he prefers to follow with GI in [place] as outpatient.
[2022-03-20 12:11] LABS: Hemoglobin 7.2 g/dl (14.0-18.0)
--- NOTE | 2022-03-20 17:13 | Hospitalist Progress Note ---
Date of Service March 20, 2022 Assessment & Plan (1) Acute blood loss anemia (ABLA): Plan: Attending: Dr. Aleman Impression: 46-year-old -[place] male admitted 03/17/2022 with altered mental status secondary to ethanol abuse. Patient found to have suprathe rapeutic INR, acute liver failure, hepatic encephalopathy, and thrombocytopenia. To date, the patient has received 7 units of packed red blood cells, 5 units of fresh frozen plasma, and 5 units of cryoprecipitate. He requires FFP to maintain subtherapeutic INR. No other active bleeding other than spontaneous hematomas which appear to be stable. New onset back pain this morning directly over the right scapula. Patient was given 40 mg of prednisone and reported resolution of pain. He received no other analgesics. Hemoglobin this morning is 7.2. Repeat hemoglobin is 2 at 5 PM. No evidence of GI bleed Multiple spontaneous hematomas including right infrascapular, left flank, right quadricep Patient complains of back pain this morning. This appeared to be directly at the site of the scapular hematoma. No spinal pain. No flank pain. No CVA tenderness. Continue transfusion of packed red blood cells to maintain hemoglobin above 8 Patient is receiving FFP for supratherapeutic INR Continue to monitor serial hemoglobin and hematocrit every 6 hours (2) Supratherapeutic INR: Plan: Received FFP and cry Follow serial INR - 1.8 this morning (up from 1.6 yesterday). Does not meet criteria for [facility] Has not received TXA to date (3) Acute liver failure: Plan: Patient has an extensive hx of alcohol abuse. Altered mental status is considerably improved. Ammonia level elevated on admission at 99. It is now down to 41. Patient is beginning to take p.o. meds. Continue lactulose for further management of his ammonia level. Continue Rifaximin per GI Patient does have small amount of ascites on imaging. At this time I do not think there is enough fluid to consider paracentesis. No concern at this time for SBP Total and direct bilirubin still elevated.AST is elevated but trending downward Appreciate GI and critical care input Patient continues to drink ethanol. Consequently he is not a candidate for consideration for liver transplant We will work on consideration for placement at inpatient rehab after H&H and INR stable (4) Hepatic encephalopathy: Plan: Ammonia was 99 and has now trended down to 41. Lactulose being started by the critical care team for management Patient alert and oriented. Response is noted to be delayed (5) Alcoholic hepatitis: Plan: Elevated Discriminant factor as above Continue Steroids at 40 mg of prednisone p.o. daily GI consulted and following (6) Thrombocytopenia: Plan: Trending downward -64,000 today. Avoid antiplatelet agents Most likley due to chronic alcohol abuse Continue to monitor daily labs (7) Hypertension: Plan: SBP trending in the 130s and 140s Diastolic pressures are improved Medications include amlodipine. Restart this today (8) Hyponatremia: Plan: Likely due to beer potomania Follow serial labs (9) Alcoholic intoxication: Plan: Consumed about 2-3 bottles of vodka will monitor for withdrawal Most likely will need inpatient rehab services (10) Malnutrition: Plan: Patient with severe malnutrition most likely due to chronic alcohol intake. Will begin boost or other oral supplement at this time since patient is now tolerating oral intake Nutritional services/dietitian is involved and will do evaluation for repletion of protein (11) DVT prophylaxis: Plan: Patient continues supratherapeutic INR Continue to trend coags as patient receives additional blood products Continue with teds stockings bilaterally Plan continue hospitalization Admission and Anticipated Discharge Date Admission Date: March 17, 2022 Subjective Attending: Dr. Aleman Patient seen and examined at bedside in room 102. He was sleeping comfortable. He was easily awakened. We discussed his earlier episode of back pain. The area of pain is described as the area just under the hematoma at his right scapula. He denies any thoracic or lumbar pain. He has no tearing or ripping sensation. He had no shortness of breath. He had no other chest pain. He denies any fever chills. He had no nausea or vomiting. Review of Systems Review of Systems: A total of 10 systems was reviewed and is negative other than as listed in the HPI Physical Exam Physical Exam: GENERAL : No acute distress. Sleeping upon arrival for examination. Easily awakened. EYES: No icterus, gaze conjugate NOSE: No evidence of epistaxis MOUTH: No lesions or candidiasis. Mucosa moist. Tongue midline NECK: Supple LUNGS: CTA B/L, no wheezes, rales or rhonchi HEART: Regular, rate controlled ABDOMEN: Soft, NT, ND, BS Present. No guarding or rebound tenderness. No pain with deep palpation BACK: Tenderness to palpation of hematoma over right scapula. Hematoma is mobile and has no appearance of erythema or warmth. Spine is palpated and there is no pain in the cervical, thoracic or lumbar region. No bony deformity appreciated EXTREMITIES: BL LE edema, pedal pulses intact and equal bilaterally NEURO: A&OX3 with some sluggishness to respond Results & Data Results & Data ([facility]) Vital Signs (Past 12 Hours) Vital Signs Pulse Resp BP Pulse Ox 03/20/22 09:45 101 H 11 L 98 03/20/22 09:30 106 H 16 99 03/20/22 09:15 109 H 17 100 03/20/22 09:00 113 H 17 100 03/20/22 09:00 151/99 H 03/20/22 08:45 106 H 23 99 03/20/22 08:34 159/86 H 03/20/22 08:34 113 H 11 L 82 L 03/20/22 08:30 113 H 100 03/20/22 08:25 120 H 98 03/20/22 08:01 146/95 H 03/20/22 08:01 117 H 15 90 03/20/22 08:00 115 H 17 97 03/20/22 07:46 77/58 L 03/20/22 07:46 118 H 20 89 L 03/20/22 07:45 115 H 16 100 03/20/22 07:30 115 H 14 100 03/20/22 07:30 151/88 H 03/20/22 07:15 106 H 16 98 03/20/22 07:15 142/95 H 03/20/22 07:00 100 H 15 98 03/20/22 07:00 131/83 03/20/22 06:45 104 H 10 L 100 03/20/22 06:45 136/99 03/20/22 06:31 162/100 H 03/20/22 06:31 103 H 15 98 03/20/22 06:00 105 H 12 98 03/20/22 06:00 113/89 03/20/22 05:45 102 H 12 99 03/20/22 05:45 154/94 H 03/20/22 05:30 143/95 H 03/20/22 05:30 101 H 12 98 03/20/22 05:15 103 H 14 100 08/12/22 05:15 144/91 H 03/20/22 05:00 103 H 10 L 94 03/20/22 05:00 137/85 Critical Care Results & Data Vital Signs (Past 12 Hours) Vital Signs Pulse Resp BP Pulse Ox 03/20/22 09:45 101 H 11 L 98 03/20/22 09:30 106 H 16 99 03/20/22 09:15 109 H 17 100 03/20/22 09:00 113 H 17 100 03/20/22 09:00 151/99 H 03/20/22 08:45 106 H 23 99 03/20/22 08:34 159/86 H 03/20/22 08:34 113 H 11 L 82 L 03/20/22 08:30 113 H 100 03/20/22 08:25 120 H 98 03/20/22 08:01 146/95 H 03/20/22 08:01 117 H 15 90 03/20/22 08:00 115 H 17 97 03/20/22 07:46 77/58 L 03/20/22 07:46 118 H 20 89 L 03/20/22 07:45 115 H 16 100 03/20/22 07:30 115 H 14 100 03/20/22 07:30 151/88 H 03/20/22 07:15 106 H 16 98 03/20/22 07:15 142/95 H 03/20/22 07:00 100 H 15 98 03/20/22 07:00 131/83 03/20/22 06:45 104 H 10 L 100 03/20/22 06:45 136/99 03/20/22 06:31 162/100 H 03/20/22 06:31 103 H 15 98 03/20/22 06:00 105 H 12 98 03/20/22 06:00 113/89 03/20/22 05:45 102 H 12 99 03/20/22 05:45 154/94 H 03/20/22 05:30 143/95 H 03/20/22 05:30 101 H 12 98 03/20/22 05:15 103 H 14 100 03/20/22 05:15 144/91 H 03/20/22 05:00 103 H 10 L 94 03/20/22 05:00 137/85 Lab & Micro Results (Past 24 Hours) RBC 2.30 M/uL (4.63-6.08) L 08/12/22 WBC 14.96 K/ul (4.8-10.8) H 03/20/22 Hgb 7.2 g/dl (14.0-18.0) L 03/20/22 Hct 21.0 % (40.1-51.0) L 03/20/22 MCV 96.5 fL (80.0-100.0) 03/20/22 MCH 32.6 pg (25.0-34.0) 03/20/22 MCHC 33.8 g/dL (32.0-36.0) 03/20/22 RDW Standard Deviation 57.7 fL (36.4-46.3) H 03/20/22 RDW Coefficient of Variation 21.2 % (11.5-14.5) H 03/20/22 Plt Count 64 K/uL (130-400) L 03/20/22 MPV 11.0 fL (9.4-12.4) 03/20/22 Nucleated Red Blood Cells % (auto) 5.8 % 03/20 Nucleated RBC Absolute Count (auto) 0.87 K/uL (0-0) H 03/09 09/30 Neutrophils (%) (Auto) 75.0 % 03/20/22 Lymphocytes (%) (Auto) 8.0 % 03/20/22 Monocytes # (Auto) 1.71 K/uL (0.24-0.82) H 03/20/22 Eosinophils # (Auto) 0.00 K/uL (0-0.50) 03/20/22 Immature Granulocyte % (Auto) 5.4 % 03/20/22 Neutrophils # (Auto) 11.21 K/uL (1.4-6.5) H 03/20/22 Lymphocytes # (Auto) 1.20 K/uL (1.2-3.4) 03/20/22 Monocytes # (Auto) 1.71 K/uL (0.24-0.82) H 03/20/22 Eosinophils # (Auto) 0.00 K/uL (0-0.50) 03/20/22 Basophils # (Auto) 0.03 K/uL (0-0.2) 03/20/22 Immature Granulocyte # (Auto) 0.81 K/uL (0.00-0.02) H 03/20 Polychromasia 1+ 03/20/22 Echinocytes 1+ 03/20/22 Anisocytosis Present 03/20/22 Target Cells 1+ 03/20/22 Na 130 mmol/L (136-145) L 03/20/22 K 3.5 mmol/L (3.5-5.1) 03/20/22 Cl 100 mmol/L (98-107) 03/20/22 CO2 24 mmol/L (21-32) 03/20/22 Anion Gap 6 (3-11) 03/20/22 BUN 16 mg/dl (6-23) 03/20/22 Creatinine 1.15 mg/dl (0.6-1.4) 03/20/22 Estimated GFR ( Amer) 88.6 ml/min 03/20/22 Estimated GFR (Non-Af Amer) 76.4 ml/min 03/20/22 BUN/Creatinine Ratio 13.9 (10-20) 03/20/22 Glu 137 mg/dl (70-99(Fasting)) H 03/20/22 Ca 8.0 mg/dl (8.5-10.1) L 03/20/22 Phosphorus Level 3.2 mg/dl (2.5-4.9) 03/20/22 Total Bilirubin 14.5 mg/dl (0.2-1.0) H 03/20/22 Direct Bilirubin 5.8 mg/dl (0-0.2) H 03/20/22 AST 174 U/L (13-39) H 03/20/22 ALT 43 U/L (7-52) 03/20/22 Alkaline Phosphatase 103 U/L (34-104) 03/20/22 TP 7.5 gm/dl (6.0-8.3) 03/20/22 Albumin 2.3 gm/dl (3.4-5.0) L 03/20/22 Globulin 5.2 gm/dl (2.5-4.0) H 03/20/22 Albumin/Globulin Ratio 0.4 (0.9-2) L 03/20/22 Mg 2.1 mg/dl (1.7-2.4) 03/20/22 05:11 Calcium Level 8.0 mg/dl (8.5-10.1) L 03/20/22 05:11 Prothromb Time International Ratio 1.8 (0.9-1.1) H 03/20/22 05 :11 I & O Totals 24 Hours 03/19/22 03/20/22 03/21/22 06:59 06:59 06:59 Intake Total 2773.166 / 2773.166 2296.682 / 2296.682 240 / 240 Output Total 886 / 886 458 / 458 350 / 350 Balance 1887.166 / 1809.444 1854.682 / 1838.682 -110 / -110 Cumulative 03/17/22 08:39 thru 03/20/22 10:02 Intake Total 74520.676 Output Total 2595 Balance 7968.676 RT Ventilator Mngmt (Last Documented) Ventilator Ordered Settings Respiratory Rate 11 03/20/22 09:45 Ventilator - PT Measurements Respiratory Rate 11 PG Care Time/CCT Total # of Minutes Spent Total Time Spent with Patient: Total time spent is greater than 50% in coordination of care (as documented) at patient's floor/unit and/or counseling patient: Coding Level of Care Code 81578 Subseq Hosp Care Lvl 2 Diagnoses Acute blood loss anemia (ABLA) D62 Supratherapeutic INR R79.1 Acute liver failure K72.00 Hepatic encephalopathy K72.90 Alcoholic hepatitis K70.11 Ascites presence: with ascites Thrombocytopenia D69.6 Hypertension I10 Hypertension type: unspecified Hyponatremia E87.1 Alcoholic intoxication F10.929 Malnutrition E46 DVT prophylaxis Z29.9 (1) Alcoholic hepatitis Ascites presence: with ascites Qualified Code(s): K70.11 - Alcoholic hepatitis with ascites (2) Hypertension Hypertension type: unspecified Qualified Code(s): I10 - Essential (primary) hypertension
[2022-03-20 17:36] LABS: Hematocrit (blood only) 19.9 % (40.1-51.0); Hemoglobin 6.8 g/dl (14.0-18.0)
[2022-03-20] MEDS ORDERED: SODIUM CHLORIDE 0.9% 250 ML IV PRN (17:47)
[2022-03-20] MEDS: amLODIPine BESYLATE 5 MG TAB PO SCH (19:04)
[2022-03-20 23:40] LABS: Hematocrit (blood only) 21.6 % (40.1-51.0); Hemoglobin 7.5 g/dl (14.0-18.0)
[2022-03-21] MEDS: INSULIN ASPART PER UNIT SC SCH ×5 (01:04→20:32)
[2022-03-21 05:46] LABS: Hematocrit (blood only) 21.7 % (40.1-51.0); Hemoglobin 7.5 g/dl (14.0-18.0)
[2022-03-21 05:50] LABS: INR 1.9 (0.9-1.1)
[2022-03-21 06:02] LABS: BUN Creatinine Ratio 17.6 (10-20); Calcium 7.8 mg/dl (8.5-10.1); Creatinine Clr Calc Pharmacy 129.8 ml/min; Est GFR (African American) 95.6 ml/min; Est GFR (Non-African American) 82.5 ml/min; Magnesium 1.9 mg/dl (1.7-2.4); Phosphorus 3.3 mg/dl (2.5-4.9); Potassium 3.2 mmol/L (3.5-5.1)
[2022-03-21] MEDS ORDERED: HYDROmorphone INJ 0.5 MG/0.5 ML SYR IV PRN (07:32)
[2022-03-21] MEDS: FOLIC ACID 1 MG TAB PO SCH (08:19)
[2022-03-21] MEDS: PANTOprazole 40 MG TAB PO SCH (08:19)
[2022-03-21] MEDS: ZINC SULFATE 220 MG CAPSULE PO SCH (08:19)
[2022-03-21] MEDS: SPIRONOLACTONE 100 MG TAB PO SCH (08:19)
[2022-03-21] MEDS: rifAXIMin 550 MG TABLET PO SCH ×2 (08:19→20:32)
[2022-03-21] MEDS: amLODIPine BESYLATE 5 MG TAB PO SCH (08:19)
[2022-03-21] MEDS: FUROSEMIDE 40 MG TAB PO SCH (08:19)
[2022-03-21] MEDS: THIAMINE HCL 100 MG TAB PO SCH ×2 (08:19→20:32)
[2022-03-21] MEDS: prednisoLONE sod phosphate 15 MG/5 ML PO SCH (08:20)
[2022-03-21] MEDS: LACTULOSE SYRUP 20 GM/30 ML UDC PO SCH ×3 (08:20→20:32)
[2022-03-21 11:33] LABS: Hemoglobin 6.8 g/dl (14.0-18.0)
[2022-03-21] MEDS ORDERED: SODIUM CHLORIDE 0.9% 250 ML IV PRN (11:34)
[2022-03-21] MEDS ORDERED: POTASSIUM CHLORIDE CRTAB 20 MEQ TABCR PO STA (11:47)
--- NOTE | 2022-03-21 12:04 | Hospitalist Progress Note ---
Date of Service March 21, 2022 Assessment & Plan (1) Acute blood loss anemia (ABLA): Plan: Attending: Dr. Aleman Impression: 46-year-old -Wallisian male admitted 03/17/2022 with altered mental status secondary to ethanol abuse. Patient found to have suprathe rapeutic INR, acute liver failure, hepatic encephalopathy, and thrombocytopenia. He has received multiple units of packed red blood cells, fresh frozen plasma and cryoprecipitate as listed above in the HPI. No other active bleeding other than spontaneous hematomas which appear to be stable. Patient is complained about back pain at the point of the hematoma at the right scapula yesterday morning as well as this morning. Each morning he was given 40 mg of prednisone and reported resolution of pain. Hemoglobin this morning is 6.8. No evidence of GI bleed Multiple spontaneous hematomas including right infrascapular, left flank, right gluteus katarzyna. Patient denies any trauma or falls Continue transfusion of packed red blood cells to maintain hemoglobin above 8 Coagulation factors studies sent today as above in HPI. Hematology has been consulted. I spoke with Dr. Anton from [facility] this morning. Recommendations were instituted including studies as listed above Due to patient's complaint of pain 2 days neuro as well as persistent drop in hemoglobin requiring transfusion, CT of the abdomen without contrast has been requested to be repeated today I have also requested a duplex ultrasound of the liver to evaluate for portal hypertension Anticipate the patient will require transfer to tertiary care facility as we do not have a technical education teacher, surveillance technician, or support system for this amount of transfusion requirement. Await CT abdomen. (2) Supratherapeutic INR: Plan: Received multiple units of FFP and cryoprecipitate as listed above. Follow serial INR 1.9 this morning. This is in spite of of vitamin K 2.5 mg p.o. last evening and 2.5 mg IV this morning. Will start vitamin K 5 mg IV daily for 3 days starting today. Await results from coag factors II, VII, VIII, IX, and X. Does not meet criteria for [facility] Has not received TXA to date (3) Acute liver failure: Plan: Patient has an extensive hx of alcohol abuse. Altered mental status is considerably improved. Ammonia level elevated on admission at 99. It is now down to 41. Patient is tolerating p.o. meds. Continue lactulose for further management of his ammonia level. Continue Rifaximin per GI Patient does have ascites and evidence of anasarca. Repeat CT abdomen pelvis without contrast. Does not present as SBP LFTs considerably increased today. Appreciate GI and critical care input Due to multiple comorbidities and the fact that we do not have a surveillance technician or technical education teacher, anticipate transfer to tertiary care facility as above (4) Hepatic encephalopathy: Plan: Ammonia was 99 and has now trended down to 41. Continue lactulose Patient alert and oriented. Response is noted to be delayed again today but appropriate. (5) Alcoholic hepatitis: Plan: Elevated Discriminant factor as above Continue Steroids at 40 mg of prednisone p.o. daily GI consulted and following (6) Hypokalemia: Plan: Patient's potassium dropped to 3.2 today. He was given 40 mill equivalents of p.o. potassium chloride. Check a magnesium level with a.m. labs. (7) Thrombocytopenia: Plan: 73,000 today. Avoid antiplatelet agents Most likley due to chronic alcohol abuse Platelets have not dropped below 50,000. Continue to follow serial labs (8) Hypertension: Plan: SBP trending in the 130s and 140s Diastolic pressures are improved Continue home dose of amlodipine (9) Hyponatremia: Plan: Likely due to beer potomania Follow serial labs (10) Alcoholic intoxication: Plan: Consumed about 2-3 bottles of vodka Continue to monitor for withdrawal Most likely will need inpatient rehab services after acute issues are resolved (11) Malnutrition: Plan: Patient with severe malnutrition most likely due to chronic alcohol intake. Will begin boost or other oral supplement at this time since patient is now tolerating oral intake Nutritional services/dietitian is involved and will do evaluation for repletion of protein (12) DVT prophylaxis: Plan: Patient continues supratherapeutic INR Continue to trend coags as patient receives additional blood products Continue with teds stockings bilaterally Plan continue hospitalization with telemetry. Admission and Anticipated Discharge Date Admission Date: March 17, 2022 Subjective Attending: Dr. Aleman Is a 46-year-old -Wallisian male with a history of ethanol abuse. He presented on 03/17/2022 with altered mental status. He had supratherapeutic INR secondary to acute liver failure as well as hepatic disease including hepatic encephalopathy. He was also found to be thrombocytopenic. He has required ongoing blood product support including 9 units of packed red blood cells, 5 units of fresh frozen plasma and 6 - (5 packs) of cryoprecipitate. He has large infrascapular intramuscular right, several left flank hematomas (the largest being 9.2 x 7.5 cm) as well as intramuscular hemorrhage to the right gluteus max imus. Patient is more alert and there have been no behavioral problems secondary to his alcohol withdrawal. Platelet count today 73,000. INR is 1.9. Coag factor studies for factors II, VII, VIII, IX, X are all pending. We are also waiting for haptoglobin. It should be noted that these are all reference labs. Iron studies were completed as follows: * Iron 71 * Unsaturated iron binding capacity less than 55 * Ferritin 1831 LFTs are elevated as follows: * Total bilirubin 15.1 * Direct bilirubin 7.2 * AST 165 * ALT 42 * Alkaline phosphatase 96 * Total protein 7.1 * Albumin 2.1 LDH is elevated at 444 Vital signs as of 163 this afternoon: * BP 135/88 * HR 99 * RR 16 * Temp 37 C * O2 saturation 98% on room air * Weight 118.2 kg; BMI 33.5 kg/m * Height 6 feet 2 inches (74 inches) Cumulative ins and outs: (+) 9884 mL Last bowel movement was 03/20/2022 Patient seen and examined in room 230. He is alert and oriented and able to provide some history.He is able to give me full ROS. He denies any shortness of breath, Chest pain, tightness. He has no significant abdominal pain. He denies pain with deep palpation. He demonstrates no guarding. He denies awareness of any active bleeding. However,Upon arrival this afternoon, the girlfriend noticed that he had blood dripping from his urethra. Patient is unaware of any fever. He does have asterixis which apparently is chronic. He denies nausea or vomiting. He has no visual changes. He continues to be weak and has difficulty repositioning himself. Patient does report that he had pain over his infrascapular hematoma this morning. This improved after he received his prednisone. currently has no pain to report. Review of Systems Review of Systems: A total of 10 systems was reviewed and is negative other than as listed in the HPI Physical Exam Physical Exam: GENERAL : No acute distress. Somewhat lethargic. Answers questions appropriately. EYES: Icteric. Gaze conjugate. Pupils equal and round NOSE: No evidence of epistaxis MOUTH: No lesions or candidiasis. No gingival bleeding. NECK: Supple LUNGS: CTA B/L, no wheezes, rales or rhonchi. Good inspirational effort HEART: Regular, rate controlled ABDOMEN: Soft, NT, ND, BS Present. Abdomen is protuberant. EXTREMITIES: B/L LE edema, pedal pulses intact and equal bilaterally. No pain to touch of galvan/tibia. No calf tenderness with palpation. BACK: Infrascapular hematoma over the right scapular wing appears to be similar to prior. NEURO: A&OX3 Results & Data Results & Data ([facility]) Vital Signs (Past 12 Hours) Vital Signs Temp Pulse Pulse Resp BP BP Pulse Ox 03/21/22 11:27 36.7 C 60 18 147/70 H 96 03/21/22 07:23 36.7 C 107 H 20 153/83 H 100 03/21/22 04:00 102 H 13 97 03/21/22 04:00 125/90 03/21/22 02:00 99 H 11 L 99 O2 Del Method 03/21/22 11:27 Room Air 03/21/22 07:23 Room Air 03/21/22 04:00 03/21/22 04:00 03/21/22 02:00 Critical Care Results & Data Vital Signs (Past 12 Hours) Vital Signs Temp Pulse Pulse Resp BP BP Pulse Ox 03/21/22 16:39 99 H 03/21/22 15:00 36.9 C 99 H 18 147/82 H 98 03/21/22 15:32 37 C 107 H 16 135/88 98 03/21/22 14:27 100 H 16 134/80 97 03/21/22 13:30 111 H 18 145/82 H 98 03/21/22 13:00 36.8 C 106 H 18 123/82 98 03/21/22 12:45 37.6 C H 119 H 18 149/87 H 98 03/21/22 12:29 36.7 C 119 H 18 147/79 H 98 03/21/22 11:27 36.7 C 60 18 147/70 H 96 03/21/22 07:23 36.7 C 107 H 20 153/83 H 100 O2 Del Method 03/21/22 16:39 03/21/22 15:00 Room Air 03/21/22 15:32 03/21/22 14:27 03/21/22 13:30 03/21/22 13:00 03/21/22 12:45 03/21/22 12:29 03/21/22 11:27 Room Air 03/21/22 07:23 Room Air Lab & Micro Results (Past 24 Hours) Hgb 6.8 g/dl (14.0-18.0) L* 03/21/22 Hct 20.0 % (40.1-51.0) L* 03/21/22 Plt Count 73 K/uL (130-400) L 03/21/22 Na 130 mmol/L (136-145) L 03/21/22 K 3.2 mmol/L (3.5-5.1) L 03/21/22 Cl 100 mmol/L (98-107) 03/21/22 CO2 25 mmol/L (21-32) 03/21/22 Anion Gap 5 (3-11) 03/21/22 BUN 19 mg/dl (6-23) 03/21/22 Creatinine 1.08 mg/dl (0.6-1.4) 03/21/22 Estimated GFR ( Amer) 95.6 ml/min 03/21/22 Estimated GFR (Non-Af Amer) 82.5 ml/min 03/21/22 BUN/Creatinine Ratio 17.6 (10-20) 03/21/22 Glu 133 mg/dl (70-99(Fasting)) H 03/21/22 Ca 7.8 mg/dl (8.5-10.1) L 03/21/22 Phosphorus Level 3.3 mg/dl (2.5-4.9) 03/21/22 Total Bilirubin 15.1 mg/dl (0.2-1.0) H 03/21/22 Direct Bilirubin 7.2 mg/dl (0-0.2) H 03/21/22 AST 165 U/L (13-39) H 03/21/22 ALT 42 U/L (7-52) 03/21/22 Alkaline Phosphatase 96 U/L (34-104) 03/21/22 TP 7.1 gm/dl (6.0-8.3) 03/21/22 Albumin 2.1 gm/dl (3.4-5.0) L 03/21/22 Lactate Dehydrogenase 444 U/L (86-244) H 03/21/22 Mg 1.9 mg/dl (1.7-2.4) 03/21/22 04:56 Calcium Level 7.8 mg/dl (8.5-10.1) L 03/21/22 04:56 Prothromb Time International Ratio 1.9 (0.9-1.1) H 03/21/22 04 :56 I & O Totals 24 Hours 03/20/22 03/21/22 03/22/22 06:59 06:59 06:59 Intake Total 2296.682 / 2296.682 1290 / 1290 1090.5 / 1090.5 Output Total 458 / 458 575 / 575 Balance 1838.682 / 1838.682 715 / 715 1090.5 / 1090.5 Cumulative 03/17/22 08:39 thru 03/21/22 15:54 Intake Total 81964.176 Output Total 2820 Balance 9884.176 RT Ventilator Mngmt (Last Documented) Ventilator Ordered Settings Respiratory Rate 16 03/21/22 15:32 Ventilator - PT Measurements Respiratory Rate 16 PG Care Time/CCT Total # of Minutes Spent Total Time Spent with Patient: Total time spent is greater than 50% in coordination of care (as documented) at patient's floor/unit and/or counseling patient: Coding Level of Care Code 23316 Subseq Hosp Care Lvl 3 (25 - SIGNIFICANT, SEPARATELY IDENTIFIABLE ) Diagnoses Acute blood loss anemia (ABLA) D62 Supratherapeutic INR R79.1 Acute liver failure K72.00 Hepatic encephalopathy K72.90 Alcoholic hepatitis K70.11 Ascites presence: with ascites Hypokalemia E87.6 Thrombocytopenia D69.6 Hypertension I10 Hypertension type: unspecified Hyponatremia E87.1 Alcoholic intoxication F10.929 Malnutrition E46 DVT prophylaxis Z29.9 Time Spent (min) 40 Comment A total of 40 minutes was spent with this patient with about 30 minutes being [id number] (1) Alcoholic hepatitis Ascites presence: with ascites Qualified Code(s): K70.11 - Alcoholic hepatitis with ascites (2) Hypertension Hypertension type: unspecified Qualified Code(s): I10 - Essential (primary) hypertension
[2022-03-21 12:18] LABS: Platelet Count 73 K/uL (130-400)
[2022-03-21 13:22] LABS: Albumin Level 2.1 gm/dl (3.4-5.0); Bilirubin Direct 7.2 mg/dl (0-0.2); Bilirubin,Total 15.1 mg/dl (0.2-1.0); Total Protein 7.1 gm/dl (6.0-8.3)
[2022-03-21 13:33] LABS: Iron 71 mcg/dl (35-175); Unsaturated Iron Binding Cap < 55 mcg/dl (155-355)
[2022-03-21] MEDS: PHYTONADIONE 5 MG in DEXTROSE 5% 50 ML IV SCH (14:00)
[2022-03-21 17:22] LABS: Fibrinogen 133 mg/dl (184-400)
--- NOTE | 2022-03-21 18:11 | Ultrasound Report ---
US duplex portal hepatic veins CLINICAL HISTORY: R/O portal hypertension TECHNIQUE: Grayscale, color and spectral waveform Doppler examination of the abdomen was performed. Comparison: None available at the time of this dictation. FINDINGS: Portal vein is patent with very slow flow. The hepatic artery velocity is 23 cm/s, decreased. The hep atic veins are not visualized. The splenic vein is limited in visualization but demonstrates anterogr mark flow. The spleen measures 11 cm in length. Cirrhosis and trace ascites. IMPRESSION: Portal vein is patent with decreased flow velocity. Cirrhosis and mild ascites are noted. Additional findings as above. ACT 112: Negative or not required by law. Electronically signed by: Jacques Bailey M.D. 03/21/2022 6:09 PM
--- NOTE | 2022-03-21 19:21 | CT Scan Report ---
CT abd pelvis wo con CLINICAL HISTORY: R/O peritoneal hematoma TECHNIQUE: Helical axial images of the abdomen and pelvis were obtained. Automated dose lowering tech niques and/or adjustment according to patient size were utilized for this exam. This exam was perfor med without intravenous contrast. CT DOSE: 1994.54 mGy.cm COMPARISON: Comparison is made to CT abdomen pelvis 03/19/2022 FINDINGS: Lower chest: Trace left effusion and atelectasis noted. Liver: Hepatic steatosis is noted. Cirrhotic contour of the liver is seen. Gallbladder and biliary tree: Patient is status post cholecystectomy. No intra- or extrahepatic bilia ry ductal dilation. Pancreas: Unremarkable, no focal lesions. Spleen: Unremarkable. Adrenals: Unremarkable. Kidneys and ureters: Unremarkable. Bladder: The bladder is underdistended but a small amount of hyperdense material is noted. Reproductive organs: Unremarkable. Bowel: Patient is status post gastric bypass surgery. There is a small hiatal hernia. Lymph nodes Retroperitoneal: Unremarkable. Pelvic: Unremarkable. Mesenteric: Unremarkable. Peritoneum: Mild ascites is seen. Vessels: Unremarkable. Abdominal wall: Diffuse soft tissue edema is noted. There is interval increase in size of right poste rior chest wall intramuscular hematoma. The left gluteal region subcutaneous hematoma is stable to mi nimally enlarged. Bilateral fat-containing inguinal hernias are seen. Bones: Degenerative changes in the visualized spine. IMPRESSION: 1. Mildly increased intramuscular subcutaneous hematomas. No evidence of peritoneal or retroperitone al hemorrhage in this patient with decreasing hematocrit. 2. Hyperdense material in the bladder may represent hematuria. 3. Cirrhosis with mild ascites. ACT 112: Negative or not required by law. Electronically signed by: Jacques Bailey M.D. 03/21/2022 7:19 PM
[2022-03-22 07:47] LABS: Prothrombin Time 20.7 Seconds (9.0-12.0)
[2022-03-22 07:51] LABS: BUN Creatinine Ratio 20.3 (10-20); Calcium 7.7 mg/dl (8.5-10.1); Est GFR (African American) 81.7 ml/min; Est GFR (Non-African American) 70.5 ml/min; Magnesium 1.8 mg/dl (1.7-2.4); Phosphorus 2.7 mg/dl (2.5-4.9); Potassium 3.2 mmol/L (3.5-5.1)
[2022-03-22] MEDS ORDERED: POTASSIUM CHLORIDE 10 MEQ / 100ML WTR IV STA (07:58)
[2022-03-22 08:01] LABS: Hematocrit (blood only) 19.7 % (40.1-51.0); Hemoglobin 6.8 g/dl (14.0-18.0); Mean Corpuscular Hemoglobin 33.8 pg (25.0-34.0); Mean Corpuscular Hgb Conc 34.5 g/dL (32.0-36.0); Mean Platelet Volume 10.1 fL (9.4-12.4); Nucleated RBC # (auto) 1.04 K/uL (0-0); Nucleated RBC % (auto) 6.7 %; Platelet Count 68 K/uL (130-400); RDW Standard Deviation 54.3 fL (36.4-46.3); Red Blood Count 2.01 M/uL (4.63-6.08); White Blood Count 15.56 K/ul (4.8-10.8)
[2022-03-22] MEDS: INSULIN ASPART PER UNIT SC SCH ×4 (08:04→21:33)
[2022-03-22] MEDS: POTASSIUM CHLORIDE / WTR 10 MEQ/100 ML PLCT IV SCH ×3 (08:25→13:06)
[2022-03-22 09:22] LABS: ALC (manual) 2.02 K/uL (1.2-3.4); ANC (manual) 11.36 K/uL (1.4-6.5); Acanthocytes 1+; Echinocytes 1+; Eosinophils # (manual) 0.16 K/uL (0-0.50); Eosinophils % (manual) 1 %; Lymphocytes # (manual) 1.87 K/uL (1.2-3.4); Lymphocytes % (manual) 12 %; Macrocytosis Present; Metamyelocytes # (manual) 0.47 K/uL (0-0); Metamyelocytes % (manual) 3 %; Monocytes # (manual) 1.24 K/uL (0.24-0.82); Monocytes % (manual) 8 %; Myelocytes # (manual) 0.47 K/uL (0-0); Myelocytes % (manual) 3 %; Neutrophils # (manual) 11.36 K/uL (1.4-6.5); Neutrophils % (manual) 73 %; Plasma Cells # (manual) 0.16 K/uL (0-0); Plasma Cells % (manual) 1 %; Polychromasia 1+; Target Cells 1+
[2022-03-22] MEDS: THIAMINE HCL 100 MG TAB PO SCH ×2 (10:41→20:42)
[2022-03-22] MEDS: PHYTONADIONE 5 MG in DEXTROSE 5% 50 ML IV SCH (10:41)
[2022-03-22] MEDS: PANTOprazole 40 MG TAB PO SCH (10:42)
[2022-03-22] MEDS: amLODIPine BESYLATE 5 MG TAB PO SCH (10:42)
[2022-03-22] MEDS: ZINC SULFATE 220 MG CAPSULE PO SCH (10:42)
[2022-03-22] MEDS: SPIRONOLACTONE 100 MG TAB PO SCH (10:42)
[2022-03-22] MEDS: FOLIC ACID 1 MG TAB PO SCH (10:42)
[2022-03-22] MEDS: rifAXIMin 550 MG TABLET PO SCH ×2 (10:43→20:42)
[2022-03-22] MEDS: LACTULOSE SYRUP 20 GM/30 ML UDC PO SCH ×4 (10:43→20:40)
[2022-03-22] MEDS: prednisoLONE sod phosphate 15 MG/5 ML PO SCH (10:43)
[2022-03-22] MEDS ORDERED: SODIUM CHLORIDE 0.9% 250 ML IV PRN ×2 (11:09→18:07)
[2022-03-22] MEDS: FUROSEMIDE 40 MG TAB PO SCH (11:58)
--- NOTE | 2022-03-22 14:50 | Hospitalist Progress Note ---
Date of Service March 22, 2022 Assessment & Plan (1) Acute blood loss anemia (ABLA): Plan: pt has acute blood loss anemia, from intramuscular subcutaneous hematomas no retroperitoneal bleed, does have Laurent Moahn sign, PT has coagulopathy secondary to alcoholic hepatitis and liver failure. as of 03/22/22 transfused 11 units prbc, 5 units of FFP and [address] way to 10 of cryo, have been speaking with contingents supervisor senior research project manager this weekend, Dr Miranda. [facility] transplant states he is not a Transplant candidate was with alcohol in system on admission and Jas en Y in history [place], DR Mae, contingents supervisor spoke to on 03/21. 03/22, and they do not feel that they can offer anything other then supportive care Thrombocytopenia (2) Acute liver failure: Plan: Alcoholic Hepatitis and hepatitis C, on methylprednisone. Initial meld score 30 after 5 days now 31 initial blood alcohol was 190 supposedly from drinking vodka lactulose 20 tid rifamixin spironolactone Pt presented with elevated alcohol level 2-3 bottles of vodka malnutrition, moderate protein calorie, is morbidly obese but now with illness and pre hospital alcohol use will provide supplements (3) Hyponatremia: Plan: Worrisome in the face of liver failure. will volume restrict (4) TANVIR (acute kidney injury): Plan: resolved (5) Person under investigation for COVID-19: Plan: was in room for less than 24 hours when roommate was positive, pt now PUI and in another room Plan Overall significant concern given the consumption of blood products given this patient's coagulopathy and no change with treatment of his alcoholic hepatitis Admission and Anticipated Discharge Date Admission Date: March 17, 2022 Subjective Attending: Dr. Aleman Is a 46-year-old -Sammar[place] male with a history of ethanol abuse. He presented on 03/17/2022 with altered mental status. He had supratherapeutic INR secondary to acute liver failure as well as hepatic disease including hepatic encephalopathy. He was also found to be thrombocytopenic. He has required ongoing blood product support including 9 units of packed red blood cells, 5 units of fresh frozen plasma and 6 - (5 packs) of cryoprecipitate. He has large infrascapular intramuscular right, several left flank hematomas (the largest being 9.2 x 7.5 cm) as well as intramuscular hemorrhage to the right gluteus katarzyna. Patient is more alert and there have been no behavioral problems secondary to his alcohol withdrawal. Platelet count today 73,000. INR is 1.9. Coag factor studies for factors II, VII, VIII, IX, X are all pending. We are also waiting for haptoglobin. It should be noted that these are all reference labs. Iron studies were completed as follows: * Iron 71 * Unsaturated iron binding capacity less than 55 * Ferritin 1831 LFTs are elevated as follows: * Total bilirubin 15.1 * Direct bilirubin 7.2 * AST 165 * ALT 42 * Alkaline phosphatase 96 * Total protein 7.1 * Albumin 2.1 LDH is elevated at 444 Vital signs as of 163 this afternoon: * BP 135/88 * HR 99 * RR 16 * Temp 37 C * O2 saturation 98% on room air * Weight 118.2 kg; BMI 33.5 kg/m * Height 6 feet 2 inches (74 inches) Cumulative ins and outs: (+) 9884 mL Last bowel movement was 03/20/2022 pt was moved to private room given PUI status, in no distress and feels "better " in his opinion updated girlfriend over the phone Review of Systems Review of Systems: Moderate to severe distress and fatigue no headache, no visual changes no speech or swallowing issues no chest pain, pressure or palpitations no shortness of breath, cough or wheezes no abdominal pain within the abdomen tender to examination no dysuria, hematuria or frequency no focal joint pain does have significant lower extremity swelling no back pain, CVA tenderness or radicular pain no bruising, bleeding or rashes no focal signs of weakness or numbness or altered sensation no complaints of anxiety or depression.. Physical Exam Physical Exam: The patient appeared to be obese and in mild to moderate distress Vital signs as documented. Head exam is normocephalic atraumatic Neck is without JVD, thyromegaly, or carotid bruits. Lungs are clear to auscultation, however diminished at the bases given his body habitus Cardiac exam, Rhythm is regular.. No murmurs, rubs or gallops. Abdominal exam reveals hypoactive bowel sounds morbidly obese no focal tenderness no masses although examination Mami to significant hepatomegaly Bruising to his left flank Extremities are 1-2+ edematous bilaterally Neurologic exam is alert and oriented, no focal loss of strength or sensation no asterixis Skin is with bruises Psychologically is without concerns for anxiety or depression.. Results & Data Results & Data ([facility]) Vital Signs (Past 12 Hours) Vital Signs Temp Pulse Pulse Resp BP BP Pulse Ox 03/22/22 13:14 98.6 F 93 H 16 152/75 H 99 03/22/22 13:49 98.1 F 99 H 14 138/84 99 03/22/22 13:29 98.2 F 95 H 18 148/75 H 99 03/22/22 13:14 98.6 F 101 H 18 155/81 H 98 03/22/22 12:25 98.1 F 112 H 18 149/81 H 95 03/22/22 12:53 98.2 F 98 H 20 156/93 H 98 03/22/22 12:44 98.2 F 106 H 16 142/82 H 99 03/22/22 12:33 98.6 F 108 H 18 132/68 98 03/22/22 12:26 98.8 F 101 H 18 133/71 99 03/22/22 12:11 98.8 F 102 H 18 133/77 98 03/22/22 12:29 98.8 F 102 H 18 133/77 99 03/22/22 12:11 98.1 F 112 H 18 149/81 H 95 03/22/22 11:14 03/22/22 11:52 99.3 F 108 H 21 126/61 96 03/22/22 11:51 99.3 F 104 H 18 126/61 96 03/22/22 07:31 108 H 03/22/22 07:20 98.8 F 107 H 22 110/69 96 03/22/22 03:18 99.1 F 104 H 18 107/63 O2 Del Method 03/22/22 13:14 03/22/22 13:49 03/22/22 13:29 03/22/22 13:14 03/22/22 12:25 03/22/22 12:53 03/22/22 12:44 03/22/22 12:33 03/22/22 12:26 03/22/22 12:11 03/22/22 12:29 03/22/22 12:11 03/22/22 11:14 Room Air 03/22/22 11:52 03/22/22 11:51 03/22/22 07:31 03/22/22 07:20 Room Air 03/22/22 03:18 PG Care Time/CCT Total # of Minutes Spent Total Time Spent with Patient: Total time spent is greater than 50% in coordination of care (as documented) at patient's floor/unit and/or counseling patient: Coding Level of Care Code 39100 Subseq Hosp Care Lvl 3 Diagnoses Acute blood loss anemia (ABLA) D62 Acute liver failure K72.00 Hyponatremia E87.1 TANVIR (acute kidney injury) N17.9 Person under investigation for COVID-19 Z20.822
[2022-03-22 15:43] LABS: Albumin Globulin Ratio 0.5 (0.9-2); BUN Creatinine Ratio 19.4 (10-20); Bilirubin Direct 8.1 mg/dl (0-0.2); Bilirubin,Total 18.9 mg/dl (0.2-1.0); Calcium 7.6 mg/dl (8.5-10.1); Est GFR (African American) 80.9 ml/min; Est GFR (Non-African American) 69.8 ml/min; Globulin 4.4 gm/dl (2.5-4.0); Potassium 3.4 mmol/L (3.5-5.1); Total Protein 6.4 gm/dl (6.0-8.3)
[2022-03-22 16:13] LABS: Fibrinogen 144 mg/dl (184-400)
[2022-03-22 21:35] LABS: Hematocrit (blood only) 22.2 % (40.1-51.0); Hemoglobin 7.6 g/dl (14.0-18.0); Mean Corpuscular Hemoglobin 32.1 pg (25.0-34.0); Mean Corpuscular Hgb Conc 34.2 g/dL (32.0-36.0); Mean Corpuscular Volume 93.7 fL (80.0-100.0); Mean Platelet Volume 10.7 fL (9.4-12.4); Nucleated RBC # (auto) 0.52 K/uL (0-0); Nucleated RBC % (auto) 3.5 %; Platelet Count 61 K/uL (130-400); RDW Coefficient of Variation 21.2 % (11.5-14.5); RDW Standard Deviation 49.1 fL (36.4-46.3); Red Blood Count 2.37 M/uL (4.63-6.08); White Blood Count 14.89 K/ul (4.8-10.8)
[2022-03-26 06:12] LABS: Coag Factor 7 Activity 21 % normal (60-150); Coag Factor 9 Activity 52 % normal (60-160); Haptoglobin <8 mg/dL (43-212)
--- NOTE | 2022-03-27 13:15 | Discharge Summary ---
Date of Service March Admission HPI Per Admitting Provider Santiago is a 46 year old male with a PMH significant for current alcohol abuse, HTN, previous gastric bypass surgery in 2015, previous bowel resection in 2019 who presented to the ED with his fiance for a chief complaint of AMS and recent fall. The majority of the history was obtained from the patient's fiance at bedside. She states that the patient has been having progressive lower extremity swelling over the last month. The patient drinks approximately 1/2 handle of vodka daily. She has noticed that his eyes have been "yellow" for about the past month. His fiance states that the patient fell on 03/13/22 but is unsure how long he was down for. After, he developed a large left abdominal and left flank hematoma. The patient was last seen in the ED on 02/02/22 for pancreatitis, transaminitis, and alcohol withdrawal but he left AMA instead of staying for treatment. At the time of the exam the patient was resting comfortably in bed in no acute distress. He denies any complaints at the time of the exam. His fiance currently lives in [place] and the patient currently lives in [place] which makes an accurate history difficult to obtained. She states that the patient was complaining of abdominal pain but has not experienced hematemesis, bloody BMs, or melena. In the ED the patient was noted to be encephalopathic, anemic with a Hgb of 6.7, down from 13.5 as of 02/02/22. The patient was found to be thrombocytopenic (78 K), supratherapeutic INR at 2.2, Cr of 1.3, up from 0.77 as of 02/02/22, hypocalcemic with an Ionized calcium of 0.97. The patient's liver enzymes were all liver enzymes were elevated with an elevated ammonia of 99 and an alcohol level of 190. CT of the head and C-spine were negative for acute injuries and CT of the abdom/pelvis WO contrast revealed "Hepatic steatosis and possible steatohepatitis in this patient with history of alcoholism. There is mild ascites." In the ED he was given 1 unit PRBCs, IV protonix , 1L NSS bolus, and 5 mg IV vitamin K. The emergency department spoke with GI who recommended medicine admission and they will follow while admitted. A long discussion was had with the patient and his fiance. It was explained that the patient is in acute liver failure with a very poor prognosis over the next 3 months. It was explained that he is not a liver transplant candidate because of his current alcohol use. The patient's fiance expressed understanding. We explained that the goal for now is to stabilize him and see what GI says moving forward. Principal Diagnosis acute on chronic liver failure alcoholic hepatitis coagulopathy acute blood loss anemia Discharge Exam pt was seem prior to transfer and agrees in mild distress large flank ecchymosis non labored breathing Discharge Data Allergies Allergy/AdvReac Type Severity Reaction Status Date / Time Penicillins Allergy Mild Hives Verified 03/17/22 09:54 Consultations 03/17/22 12:20 ED Decision to Admit Stat 03/17/22 17:45 Consult Gastroenterology Routine Consult Vice Admiral Routine 03/21/22 11:20 Consult Oncology Routine 03/22/22 16:45 Burn CD for patient Stat Ordered Studies 03/17/22 09:06 CT cervical spine wo con Stat CT head/brain wo con Stat 03/17/22 10:03 CT abd pelvis wo con Stat 03/18/22 23:34 CT angio abdomen pelvis w con Urgent 03/21/22 12:04 US duplex portal hepatic veins Routine 03/21/22 15:59 CT Abd and Pelvis [CT abd pelvis wo con] Urgent Hospital Course (1) Acute blood loss anemia (ABLA): pt has acute blood loss anemia, from intramuscular subcutaneous hematomas no retroperitoneal bleed, does have Laurent Mohan sign, PT has coagulopathy secondary to alcoholic hepatitis and liver failure. as of 03/22/22 transfused 11 units prbc, 5 units of FFP and [address] way to 10 of cryo, have been speaking with construction technician water quality tester this Dr Ruth mckeon. [facility] transplant states he is not a Transplant candidate was with alcohol in system on admission and Jas en Y in history DR Tu Berry, construction technician spoke to on 03/21. 03/22, and they do not feel that they can offer anything other then supportive care with continued coagulopathy and anemiia and no improvement in MELD with steroids, I reached out tp [facility] who agreed to take the patient in transfer to asses in additional treatment could be undertaken to improve his declining condition Thrombocytopenia (2) Acute liver failure: Alcoholic Hepatitis and hepatitis C, on methylprednisone. Initial meld score 30 after 5 days now 31 initial blood alcohol was 190 supposedly from drinking vodka lactulose 20 tid rifamixin spironolactone Pt presented with elevated alcohol level 2-3 bottles of vodka malnutrition, moderate protein calorie, is morbidly obese but now with illness and pre hospital alcohol use will provide supplements (3) Hyponatremia: Worrisome in the face of liver failure. will volume restrict (4) TANVIR (acute kidney injury): resolved (5) Person under investigation for COVID-19: was in room for less than 24 hours when roommate was positive, pt now PUI and in another room Plan Overall significant concern given the consumption of blood products given this patient's coagulopathy and no change with treatment of his alcoholic hepatitis Total Time Total Time Spent Total Time Spent (In Minutes): it required greater than 30 minutes to prepare this discharge Discharge Plan Discharge Items Patient Disposition: Transfer Acute Care Hospital Reason For Visit: AMS Discharge Diagnosis: alcoholic hepatitis coagulopathy liver failure acute blood loss anemia pui covid Activity: Per Instructions section Non-emergency contact: Specialist Call non-emergency contact if: your symptoms worsen Follow-up/Referrals: Rigo Osborne DO [Primary Care Provider] - Diet: Low Sodium (2gm) Addtl Attending Provider Instructions: transfer to [facility] Pending Studies at Discharge: Yes Stand-Alone Forms: My [employer], Smoking Cessation Skilled Items Patient informed of condition?: Yes DNR: No Discharge Level of Care: Other Communicable Disease: Yes Discharge Prognosis: Deteriorating Lines: Peripheral IV Urinary Catheter: Yes Medications and DC Order Prescriptions: New furosemide 40 mg Tablet 40 mg PO QAM Qty: 3 0RF prednisolone sodium phosphate 15 mg/5 mL (3 mg/mL) Solution 40 mg PO DAILY Qty: 237 0RF spironolactone 100 mg Tablet 100 mg PO QAM Qty: 30 0RF thiamine HCl (vitamin B1) 100 mg Tablet 100 mg PO BID Qty: 30 0RF insulin aspart U-100 [Novolog U-100 Insulin aspart] 100 unit/mL Solution 1 unit SC ACHS Qty: 3 0RF Rx Instructions: sliding scale pantoprazole 40 mg Tablet,Delayed Release (Dr/Ec) 40 mg PO QAM Qty: 30 0RF folic acid 1 mg Tablet 1 mg PO DAILY Qty: 3 0RF zinc sulfate [Orazinc] 50 mg zinc (220 mg) Capsule 220 mg PO QAM Qty: 30 0RF Xifaxan 550 mg Tablet 550 mg PO BID Qty: 30 0RF lactulose 20 gram/30 mL Solution 20 g PO TID Qty: 30 0RF Continued amlodipine 5 mg tablet 5 mg PO DAILY Rx Instructions: has not had for atleast a month, filled 12/27/21 for 30 days Discontinued cyanocobalamin (vitamin B-12) [Vitamin B-12] 1,000 mcg Tablet 0 mcg PO DAILY hydrochlorothiazide 12.5 mg tablet 12.5 mg PO DAILY Rx Instructions: was last filled 12/27/21 for 30 days, has not taken any for atleast a month, after scrtipt ran out. cholecalciferol (vitamin D3) [Vitamin D3] 50 mcg (2,000 unit) Capsule 0 mcg PO DAILY Discharge Orders: Discharge Order (Routine); Ordered 03/22/22 Ordered By: Renan Aleman Admission Data Admit Date/Time: 03/17/22 13:33 Attending Provider: Renan Aleman Admit Provider: Farzad Fang Primary Care Provider: Rigo Osborne Other Providers: Timmy Jenkins ; Yobani Mondragon ; Reid Killian Coding Level of Care Code D/C DAY MANAGEMENT >30 MINS Diagnoses Acute blood loss anemia (ABLA) D62 Acute liver failure K72.00 Hyponatremia E87.1 TANVIR (acute kidney injury) N17.9 Person under investigation for COVID-19 Z20.822
== END 2022-03-23 03:28 | disposition short-term general hospital (02) | DRG 432 ==
LOC: EDBD → MERGE 08:47 → ED 08:47 → SUATTDRO 13:33 → EDINP 13:33 → 1E 19:41 → 2S 03-21 06:21
DX: Z68.38 Body mass index [BMI] 38.0-38.9, adult; R29.6 Repeated falls; F10.139 Alcohol abuse with withdrawal, unspecified; B19.20 Unspecified viral hepatitis C without hepatic coma; K70.40 Alcoholic hepatic failure without coma; Z88.0 Allergy status to penicillin; Y90.9 Presence of alcohol in blood, level not specified; D68.4 Acquired coagulation factor deficiency; M54.9 Dorsalgia, unspecified; K70.11 Alcoholic hepatitis with ascites; I10 Essential (primary) hypertension; F10.129 Alcohol abuse with intoxication, unspecified; Z79.899 Other long term (current) drug therapy; Z98.84 Bariatric surgery status; E87.1 Hypo-osmolality and hyponatremia; N17.0 Acute kidney failure with tubular necrosis; M79.81 Nontraumatic hematoma of soft tissue; E66.01 Morbid (severe) obesity due to excess calories; D69.59 Other secondary thrombocytopenia; E87.6 Hypokalemia; K76.7 Hepatorenal syndrome; I85.11 Secondary esophageal varices with bleeding; Z20.822 Contact with and (suspected) exposure to COVID-19; D62 Acute posthemorrhagic anemia; E44.0 Moderate protein-calorie malnutrition; E83.51 Hypocalcemia